=== PATIENT | male | born 1940 | race Caucasian/White ===

== ENCOUNTER 2016-12-26 17:03 | Inpatient (IN) | payer MEDICARE ==
[~2016-12-26] VITALS: Ht 188 cm; Wt 96.7 kg
[~2016-12-26 17:03] MED LIST: ASPI325T32 PO; Acetaminophen PO; CARV6.252 PO; CHONDROITIN ORAL; FLUD0.1T PO; FLUO20CA25 PO; GLIP5TAB26 PO; GLUCOSAMINE ORAL; INSLIS SUBQ; INSU100I13 SUBQ; MIDO5TAB PO; PANT40TA3 PO; POLY17PO6 PO; SIMV40TA5 PO; TAMS0.4C98 PO
[2016-12-26 17:30] VITALS: BP 48/69; PULSE 6; RESP 18; O2SAT 98
--- NOTE | 2016-12-26 18:06 | ED.REPORT ---
HPI-Head Prob / Injury Date of Service Dec 26, 2016 ED Provider: Dr. Jasso Pt is a 76 y/o male w/ a hx of IDDM, HTN, HLD, CVA, CAD, L kidney CA s/p L nephrectomy, presenting to the ED via EMS due to ground level fall which occurred prior to arrival. The patient got out of bed to head to the bathroom and felt like he was going to pass out and fell headfirst into a door and then to the ground. The patient takes aspirin daily and no anticoagulants. He is a poor historian. Nursing Notes Stated Complaint: GLF Chief Complaint: General Complaint Nursing Notes Reviewed: Yes Allergies: Coded Allergies: No Known Allergies (Verified , 12/26/16) Scheduled ([Clucosamine-Chondro]) 2 TAB ORAL DAILY Aspirin (Aspirin) 325 Mg Tablet 325 MG PO DAILY Carvedilol (Carvedilol) 6.25 Mg Tablet 12.5 MG PO BID with food Fludrocortisone Acetate (Fludrocortisone Acetate) 0.1 Mg Tablet 0.1 MG PO DAILY Fluoxetine (Fluoxetine) 20 Mg Capsule 20 MG PO DAILY morning Glipizide ER (Glipizide ER) 5 Mg Tab.er.24 5 MG PO DAILY take with breakfast Insulin Glargine (Lantus U100 Solostar Insulin Pen) 100 Unit/1 Ml Insuln.pen 70 UNIT SUBQ HS Insulin Human Lispro (HumaLOG U100 Insulin Vial) 100 Unit/Ml Unit 0 UNIT SUBQ WMHS Check blood sugars before meals and at bedtime. Use correction factor only before meals. Blood Sugar Lispro Correction: <151, 0 units; 151-175, 1 unit; 176-200, 2 units; 201-225, 3 units; 226-250, 4 units; 251-275, 5 units; 276-300 , 6 units; 301-325, 7 units; 326-350, 8 units; 351-375, 9 units; 376-400, 10 units; >400, 12 units. Midodrine (Midodrine) 5 Mg Tablet 5 MG PO 08,12,[address] (Pantoprazole DR) 40 Mg Tablet.dr 40 MG PO DAILYAC Simvastatin (Simvastatin) 40 Mg Tablet 40 MG PO HS Tamsulosin (Flomax) 0.4 Mg Capsule 0.4 MG PO HS Scheduled PRN ([Acetaminophen]) 325 MG TABLET 650 MG PO Q6H PRN PRN For Mild Pain or Fever Polyethylene Glycol 3350 (Miralax) 17 Gm Powd.pack 17 GM PO DAILY PRN PRN For Constipation General Time Seen by Provider: 18:06 Chief Complaint Contusion Hx Obtained From: Patient, EMS Arrived By: Ambulance Onset Occurred: Just prior to arrival Symptom Duration: Since onset Caused by: Blunt trauma Quality: Painful Severity: Current: Mild Severity: Maximum: Mild Past Medical History Past Medical History Kidney cancer s/p left nephrectomy IDDM CVA Hypertension Hyperlipidemia NH Past Surgical History Left nephrectomy Cataract surgery angioplasty Smoking History Former Smoker Social History Alcohol Use: "Social" Drug Use: Denies drug use Ambulatory Status Independent Review of Systems Review of Systems Note: ROS limited Neurologic: Denies: Focal weakness, Numbness Complete sys rev & neg: except as marked. Respiratory: Denies: Shortness of breath Physical Exam Initial Vital Signs Vital Signs (First) Date Time Temp Pulse Resp B/P Pulse Ox O2 Delivery O2 Flow Rate FiO2 12/26/16 17:30 37.3 6 18 48/69 98 Room Air 12/26/16 23:37 2 Initial VS: Reviewed, Unavailable (multiple typos) Respiratory: Breath sounds normal, Clear to auscultation, No respiratory distress Cardiovascular: Regular rate & rhythm, Heart sounds normal, Intact distal pulses Abdomen / GI: Soft, Non-tender, No distention Extremities: Vascular intact, Neuro intact Psychiatric: Mood/affect normal, Behavior normal, Normal thought content General/Constitutional: Awake, Alert, No acute distress, Cooperative, Not toxic appearing Head / Eyes: Normocephalic, PERRL Abrasions to left face ENT: Airway patent Mouth: Positive: Mucous membranes dry Neck: Atraumatic, Supple, Full range of motion, Non-tender, No midline vertebral tend Neurologic: Oriented X3, Speech NL, No motor deficits, Memory NL Skin: Warm, Dry, Intact Bruises over multiple sites of body in varying stages of healing Interpretation & Diagnostics Lab Results Interpretation Result Diagram: 12/26/16 1910 12/27/16 0040 Test 12/26/16 19:10 12/26/16 20:40 12/27/16 00:40 White Blood Count 6.7th/mm3 (3.8-10.1) Red Blood Count 6.10mil/mm3 (4.40-5.80) Hemoglobin 15.0g/dL (13.8-17.2) Hematocrit 47.9% (41.0-50.0) Mean Corpuscular Volume 78.5fL (81-100) Mean Corpuscular Hemoglobin 24.6pg (27.0-35.0) Mean Corpuscular Hemoglobin Concent 31.3% (32.0-37.0) Red Cell Distribution Width 19.6% (12.3-15.4) Platelet Count 129bil/L (150-400) Neutrophils (%) (Auto) 68.6% (40-74) Lymphocytes (%) (Auto) 20.8% (14-46) Monocytes (%) (Auto) 9.5% (4-12) Eosinophils (%) (Auto) 0.6% (0-5) Basophils (%) (Auto) 0.4% (0-3) Total Bilirubin 0.9mg/dL (0.0-1.2) Aspartate Amino Transf (AST/SGOT) 28U/L (0-50) Alanine Aminotransferase (ALT/SGPT) 20U/L (0-44) Alkaline Phosphatase 129U/L (25-160) Troponin T < 0.010ug/L (0.0-0.011) Total Protein 6.7g/dL (6.4-8.4) Albumin 3.5g/dL (3.4-5.0) Procalcitonin 0.06ng/mL (0.00-0.08) Reticulocyte Count,Calculated 1.0% (0.6-2.6) Sodium Level 141mEq/L (134-144) Potassium Level 4.9mEq/L (3.5-5.2) Chloride Level 104mEq/L (97-108) Carbon Dioxide Level 16mmol/L (18-29) Blood Urea Nitrogen 22mg/dL (8-27) Creatinine 1.45mg/dL (0.76-1.27) Estimat Glomerular Filtration Rate 50mL/min (>59) Glucose Level 206mg/dL (60-99) Calcium Level 8.9mg/dL (8.5-10.1) Magnesium Level 2.0mg/dL (1.6-2.6) Iron Level 36ug/dL (35-150) Total Iron Binding Capacity 282ug/dL (250-450) Percent Iron Saturation 13%sat (15-50) Unsaturated Iron Binding 245.6ug/dL Thyroid Stimulating Hormone (TSH) 6.000uIU/mL (0.450-4.500) Pulse Oximetry Interpretation Pulse Oximetry: Pulse Ox normal, On room air ECG Interpretation ECG Interpretation: Sinus rhythm rate 52 T wave inversion in V5 and V6 No prior available for comparison Time: : Interpreted by: ED physician Normal ECG Interpretation: No acute ischemic changes Rhythm Strip Interpretation : Time: 19:57 Rhythm Strip Interpretation: Interpreted by me, Rate (52), Normal sinus rhythm CBC Interpretation CBC normal BMP / CMP Interpretation BMP/CMP normal except, Glucose elevated, Creatinine normal (improved from baseline) Cardiac / Vascular Interp Troponin normal X-Ray Chest Interpretation Chest Xray Interpretation: IMPRESSION: Subtle bibasilar opacities likely represent atelectasis, however finding is nonspecific and correlation with clinical and laboratory data is recommended to exclude early pneumonia. Dictated by: Gwendolyn Pena MD, PhD on 12/26/2016 at 19:10 Approved by: Gwendolyn Pena MD, PhD on 12/26/2016 at 19:11 View: Portable, 1 view Interpretation / Wet Read by: Interpret - Radiologist CT Head Interpretation IMPRESSION: No acute intracranial disease process. Dictated by: Gwendolyn Pena MD, PhD on 12/26/2016 at 18:13 Approved by: Gwendolyn Pena MD, PhD on 12/26/2016 at 18:16 Study: Head CT no contrast Interpretation / Wet Read by: Interpret - Radiologist Re-Eval/Medical Decision Source of Hx: Old records Re-Evaluation/Progress : Time of Eval: 00:00 Re-Evaluation/Progress Note: Pt rechecked. He has been coughing quite a bit in the ED. Informed pt of need for admission. Pt understands and agrees with plan for admission. All questions addressed. Consultation : Referral / Consult Name: Cindy Beltran MD Consulted With: Hospitalist Call Returned at: 00:01 Customer Acquisition Manager: Will see patient, Agrees with eval, Agrees with plan, Accepts admit Counseled Regarding: Diagnosis, Lab results, Need for admission Discharge & Departure Primary Impression: Syncope Syncope type: unspecified Qualified Code: R55 - Syncope and collapse Additional Impression: Head injury Encounter type: initial encounter Qualified Code: S09.90XA - Unspecified injury of head, initial encounter Disposition: ADMITTED TO HOSPITAL All VS Reviewed: Yes Condition: Stable Referrals: Moody Wade MD (PCP) Scribe Attestation Portions of this note were transcribed by Faisal Ellis. I, Dr. Jasso personally performed the history, physical exam and medical decision-making; I reviewed and confirmed the accuracy of the information in the transcribed note. copies to: Moody Wade MD, Todd P DO Dec 26, 2016 18:06 FAISAL ELLIS Dec 26, 2016 18:15
--- NOTE | 2016-12-26 18:18 | DRSVH ---
PROCEDURE: CT BRAIN WITHOUT CONTRAST ([id number]) INDICATIONS: fall TECHNIQUE: Noncontrast 4.5 mm thick angled axial sections acquired from the foramen magnum to the vertex, with c oronal reformats. COMPARISON: [facility], CT, CT BRAIN WO CON, 01/30/2016, 4:16. FINDINGS: Image quality: Excellent. CSF spaces: Basal cisterns are patent. No extra-axial fluid collections. The ventricles are symmet lobo in size and shape. Brain: No intracranial bleeds or masses. There is cerebral volume loss for age, with resultant vent ricular and sulcal prominence. There are periventricular and deep white matter chronic small vessel ischemic changes. Old bilateral basal ganglia lacunar infarcts are stable compared to prior examinati on. There is intracranial internal carotid artery and vertebral artery atherosclerosis. Skull and face: Calvarium and visualized facial bones appear intact, without suspicious lesions. Sma ll left frontal scalp hematoma is noted. Sinuses: Visualized sinuses and mastoids are clear. IMPRESSION: No acute intracranial disease process. Dictated by: Gwendolyn Pena MD, PhD on 12/26/2016 at 18:13 Approved by: Gwendolyn Pena MD, PhD on 12/26/2016 at 18:16
--- NOTE | 2016-12-26 19:12 | DRSVH ---
PROCEDURE: X-RAY CHEST ONE VIEW, PORTABLE ([id number]) INDICATIONS: syncope TECHNIQUE: One view of the chest was acquired. COMPARISON: None. FINDINGS: Surgical changes and devices: None. Lungs and pleura: No pleural effusions or pneumothorax. Subtle opacities in the lung bases bilateral ly may represent atelectasis versus less likely early pneumonia. Mediastinum: Mediastinal contours appear normal. Heart size is normal. Bones and chest wall: No suspicious bony lesions. Overlying soft tissues appear unremarkable. IMPRESSION: Subtle bibasilar opacities likely represent atelectasis, however finding is nonspecific and correlation with clinical and laboratory data is recommended to exclude early pneumonia. Dictated by: Gwendolyn Pena MD, PhD on 12/26/2016 at 19:10 Approved by: Gwendolyn Pena MD, PhD on 12/26/2016 at 19:11
[2016-12-26 19:29] LABS: Mean Corpuscular Hemoglobin 24.6 pg (27.0-35.0)
[2016-12-26 19:41] LABS: BASOPHILS % (AUTO) 0.4 % (0-3); EOSINOPHILS % (AUTO) 0.6 % (0-5); MONOCYTES % (AUTO) 9.5 % (4-12); Mean Corpuscular Volume 78.5 fL (81-100); NEUTROPHILS % (AUTO) 68.6 % (40-74); Platelet Count 129 bil/L (150-400)
[2016-12-26 21:18] VITALS: BP 133/57; PULSE 64; RESP 20; O2SAT 98
[2016-12-26 21:19] LABS: TROPONIN T < 0.010 ug/L (0.0-0.011)
[2016-12-26] MEDS ORDERED: cefTRIAXone Inj 2,000 MG in Dextrose 5% Minibag Plus 50 ML IV ONE (21:40)
[2016-12-26 23:37] VITALS: BP 141/43; PULSE 53; RESP 16; O2SAT 98
[2016-12-27] VITALS (11 sets, daily range): BP systolic 127–167; BP diastolic 43–87; PULSE 49–65; RESP 16–18; O2SAT 96–100
[2016-12-27] MEDS ORDERED: 0.9% Sodium Chloride 1,000 ML IV SCH (00:18)
[2016-12-27] MEDS ORDERED: Polyethylene Glycol (PEG) 17 Gm Powder PO PRN ×2 (00:20→18:45)
[2016-12-27] MEDS ORDERED: Alum-Mag Hydrox-Simeth 30 mL Suspension PO PRN (00:20)
[2016-12-27] MEDS ORDERED: Ondansetron 2 mg/mL 2 mL Inj IVPUSH PRN (00:20)
[2016-12-27] MEDS: Sodium Chloride LOK Flush 10 mL Syringe IVFLUSH SCH ×3 (00:30→16:30)
[2016-12-27] MEDS ORDERED: Promethazine 25 mg/mL Inj IM PRN (00:30)
[2016-12-27] MEDS ORDERED: Glucose 40% Oral Gel 15 Gm Tube PO PRN (00:50)
[2016-12-27] MEDS ORDERED: Dextrose 10% 250 ML IV PRN (00:55)
[2016-12-27 01:09] LABS: Unsaturated Iron Binding 245.6 ug/dL
[2016-12-27] MEDS: Heparin 5,000 Unit/mL Inj SUBQ SCH ×3 (02:23→16:39)
--- NOTE | 2016-12-27 02:48 | PCM.HPMED ---
Subjective Date of Service Dec 27, 2016 Primary Provider: Admitting Physician: Primary Care Physician: Moody Wade MD Attending Physician: Admit Status: From the Emergency Department, 23-Hour Observation, Remote Telemetry Chief Complaint: Near syncope with ground level fall. . History of Present Illness: Jayson Vuong is a 76-year-old male who is a poor historian with a past medical history significant for orthostatic hypotension, diabetes mellitus type II, non- insulin using, CAD, hyperlipidemia, and left renal carcinoma status post nephrectomy who presented to [facility] emergency department via EMS due near syncope with ground level fall. The patient reports he got out of bed to head to the bathroom and felt like he was going to pass out. He then fell headfirst into a door and then to the ground. The patient denies loss of consciousness. The fall was unwitnessed. He has had this happen several times in the past that was evaluated and thought to be secondary to orthostatic hypotension. The patient has been seen by Dr. Larsen and placed on midodrine for orthostasis. He takes a full dose aspirin daily. The patient reports he recently had an URI that seems to be improving. He endorses mild productive cough of white sputum that is resolving. Due to recent URI he admits to poor PO intake and hydration. He denies headache, vision changes, sore throat, chest pain, palpitations, shortness of breath, abdominal pain, nausea, vomiting, fever , chills, dysuria, constipation or diarrhea. He does endorse dyspnea on exertion. He denies orthopnea or paroxysmal nocturnal dyspnea. He also endorses minor difficulty urinating due to "penis inversion." Vital signs in the ER: Temperature 37.3. Pulse 64. Respiratory rate 20. Blood pressure 133/57. Pulse ox 98% on room air. He received 2 g of IV Rocephin in the ED. PCP is Dr. Wells. Neurology Specialist is Dr. Larsen. . Review of Systems: A comprehensive review of systems was conducted with the patient and found to be negative except as above in the History of Present Illness. . Allergies Coded Allergies: No Known Allergies (Verified , 12/26/16) Home Medications Medications have not been verified as medication reconciliation has not been obtained. Per out patient records:: Aspirin 325 mg daily. Atorvastatin 20 mg daily at bedtime. Fluoxetine 20 mg daily. Glipizide 5 mg twice daily. Metoprolol succinate 12.5 mg daily. Midodrine 5 mg 3 times a day. Potassium chloride 20 mEq daily. Tamsulosin 0.4 mg daily at bedtime. . PMH 1. Renal carcinoma status post left nephrectomy. 2. Diabetes mellitus type II, non-insulin using. 3. CVA. 4. Orthostatic hypotension. 5. Hyperlipidemia. 6. CAD with history of AL status post stent? 7. Depression. 8. GERD. 9. BPH. 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 . Surgical History 1. Left nephrectomy. 2. Bilateral cataract extraction. 3. Coronary angioplasty and possible stent placement? . Family History Noncontributory. . Social History Hx Alcohol Use: Yes (former alcoholic, in remission 32 years) Hx Substance Use: No Hx Tobacco Use: Yes Smoking Status: Former Smoker (2 PPD times x 16 years) Living Arrangement: Alone Additional Information The patient is 1. He has one son who has a history of drug abuse and is in and out of fpc. He lives alone. He is originally from [place], [place]. 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 . Exam Vital Signs Vital Sign - Last Date Time Temp Pulse Resp B/P Pulse Ox O2 Delivery O2 Flow Rate FiO2 12/26/16 23:37 53 16 141/43 98 Nasal Cannula 2 12/26/16 17:30 37.3 Intake and Output 12/26/16 12/26/16 12/27/16 Cumulative From/Thru 15:00 23:00 07:00 12/26/16 21:54 - 12/26/16 21:54 Intake Total 500 ml 500 ml Balance 500 ml 500 ml Intake IV Total 500 ml 500 ml Exam General: Elderly gentleman sitting in bed and in no acute distress, thin, appropriately interactive. HEENT: Normocephalic, atraumatic. External ears without defect. Pupils equal, round, and reactive to light. Left eye contusion and small abrasion on scalp. Anicteric sclerae, moist conjunctivae, and no lid lag. Oropharynx free of erythema and cobble stoning. Dry mucous membranes. Neck: Supple with full range of motion. No jugular venous distension. No bruits. No lymphadenopathy or thyromegaly. Cardiovascular: Distant heart sounds, regular rhythm, bradycardic without murmurs, rubs, or gallops appreciated Pulmonary: Clear to auscultation bilaterally without crackles, wheezes, or rhonchi. Normal respiratory effort with no use of accessory muscles. Abdomen:Soft, nontender, nondistended, bowel sounds present. No hepatosplenomegaly or masses appreciated. Genitourinary: Fragoso/glans of penis is inverted and edematous. Extremities: Moderate bilateral pitting edema to waiste bilaterally. No clubbing or cyanosis. Skin: Normal temperature, turgor, and texture; no rash, ulcers, or subcutaneous nodules appreciated. Neurological: Cranial nerves grossly intact. Normal muscle strength, tone, and bulk. Reflexes, coordination, and sensory function within normal limits. No known gait impairment. Psychiatric: Normal mood and affect. Alert and oriented to person, place, and time. . Lab and Diagnostics Labs Item Value Date Time Mean Corpuscular Volume 78.5 fL L 12/26/161909 Mean Corpuscular Hemoglobin 24.6 pg L 12/26/161909 Mean Corpuscular Hemoglobin Concent 31.3 % L 12/26/161909 Red Cell Distribution Width 19.6 % H 12/26/161909 Neutrophils (%) (Auto) 68.6 % 12/26/161909 Lymphocytes (%) (Auto) 20.8 % 12/26/161909 Monocytes (%) (Auto) 9.5 % 12/26/161909 Eosinophils (%) (Auto) 0.6 % 12/26/161909 Basophils (%) (Auto) 0.4 % 12/26/161909 Item Value Date Time Calcium Level 8.8 mg/dL 12/26/162039 Total Bilirubin 0.9 mg/dL 12/26/162039 Aspartate Amino Transf (AST/SGOT) 28 U/L 12/26/162039 Alanine Aminotransferase (ALT/SGPT) 20 U/L 12/26/162039 Alkaline Phosphatase 129 U/L 12/26/162039 Troponin T < 0.010 ug/L 12/26/162039 Total Protein 6.7 g/dL 12/26/162039 Albumin 3.5 g/dL 12/26/162039 Procalcitonin 0.06 ng/mL 12/26/162039 Result Diagram: 12/26/16190912/26/162039 Microbiology Blood culture 2 pending. . X-Rays, CTs and MRIs CT BRAIN WITHOUT CONTRAST IMPRESSION: No acute intracranial disease process. Dictated by: Gwendolyn Pena MD, PhD on 12/26/2016 at 18:13 X-RAY CHEST ONE VIEW, PORTABLE IMPRESSION: Subtle bibasilar opacities likely represent atelectasis, however finding is nonspecific and correlation with clinical and laboratory data is recommended to exclude early pneumonia. Dictated by: Gwendolyn Pena MD, PhD on 12/26/2016 at 19:10 . 12-lead ECG EKG: Sinus bradycardia, heart rate 52, normal axis, low voltage throughout precordial leads, prolonged [place] interval at 220 ms and QTc at 500 ms, otherwise normal intervals, nonspecific T-wave inversion in lead V5, no pathological Q waves or acute ischemic changes such as ST elevation or depression. . Assessment & Plan Jayson Vuong is a 76-year-old male who is a poor historian with a past medical history significant for orthostatic hypotension, diabetes mellitus type II, non- insulin using, CAD, hyperlipidemia, and left renal carcinoma status post nephrectomy who presented to [facility] emergency department via EMS due near syncope with ground level fall. 1. Acute near syncopal episode with ground level fall, present on admission. Active. - Patient presented after a near syncopal episode with ground level fall. - Differential diagnosis includes:Likely orthostatic hypotension. Less likely cardiac etiology including arrhythmia or valvular heart disease versus vasovagal versus neurogenic. - CT brain without contrast did not reveal any acute intracranial abnormalities , as above. - Ordered echocardiogram, pending. History of stage I diastolic heart failure. - Ordered orthostatic blood pressures, pending. - Ordered urinalysis with culture if indicated, pending. Patient's penis is inverted and quite edematous, however, he is able to void. Consider urology evaluation in the future. - Procalcitonin normal at 0.06. - Troponin normal at <0.010. - Electrolytes within normal limits. - Ordered TSH, pending. - EKG revealed sinus bradycardia with first-degree AV block and significantly prolonged QTC of 500 ms. Avoid QTC prolonging medications. - Continue to monitor for arrhythmias on telemetry. - Ordered physical therapy evaluation. - Started IV fluid hydration with NS at 60 mL/hr due to patient's history of diastolic dysfunction and significant lower extremity edema. - Continue midodrine 5 mg 3 times a day once medication reconciliation was completed. 2. Recent upper respiratory tract infection, present on admission. Resolving. - Patient recently had a minor URI 2 weeks that is resolving. - Received Rocephin 2 g IV in the ED. Will not continue antibiotics as clinically no signs of pneumonia (afebrile, no leukocytosis, pro-calcitonin negative, no rales on pulmonary exam). - Chest x-ray demonstrated subtle bibasilar opacities likely represent atelectasis, as above. Chronic problems: 3. Diabetes mellitus type II, insulin using, present on admission. Stable. - Hemoglobin A1c 6.5% in 01/2016. Repeat hemoglobin A1c pending. - Held oral anti-glycemic. - Ordered heart healthy/carbohydrate consistent diet. - Patient is reportedly off of all insulin as there may have been a component of hypoglycemia contributing to his orthostasis. Ordered low-dose correctional scale insulin for coverage. 4. Hyperlipidemia, present on admission. Stable. - Continue atorvastatin 20 mg daily at bedtime once medication reconciliation is completed. 5. CAD, present on admission. Stable. - Continue aspirin 325 mg daily and beta verena once medication reconciliation is completed. 6. Depression, present on admission. Stable. - Continue fluoxetine 20 mg daily once medication reconciliation is completed. 7. GERD, present on admission. Stable. - Not medically treated. 8. BPH, present on admission. Stable. - Previously on tamsulosin 0.4 mg daily at bedtime but per patient this medication has been stopped likely due to orthostasis. Medication reconciliation has not been completed as it is unobtainable. Day team to reconcile medications. PRN antiemetics: Promethazine and Maalox. PRN bowel regimen: Senna and MiraLAX. PRN analgesics: Tylenol. Patient is admitted under observation status with expected length of stay less than 2 midnights due to severity of presenting symptoms, risk of adverse event, and complexity of treatment plan. . VTE Prophylaxis: Sub-Q Heparin (Unfractionated) Resuscitation Status: CPR: Attempt Resuscitation Attending Statement Patient has been seen and examined by myself with medical staff manager and agree with above history, physical, assessment and plan. Camila Walton DO Dec 27, 2016 00:21 Cindy Beltran MD Dec 27, 2016 06:32
[2016-12-27 03:38] LABS: BASOPHILS % (AUTO) 0.3 % (0-3); EOSINOPHILS % (AUTO) 1.3 % (0-5); MONOCYTES % (AUTO) 8.5 % (4-12); Mean Corpuscular Hemoglobin 25.1 pg (27.0-35.0); Mean Corpuscular Volume 80.8 fL (81-100); NEUTROPHILS % (AUTO) 67.4 % (40-74); Platelet Count 140 bil/L (150-400)
--- NOTE | 2016-12-27 06:16 | NUR ---
Admit Patient arrived to P[facility] room 2002 via bed from ED at approx. 0140. All belongings transferred with patient. Denies pain upon arrival and throughout shift. Severe waist-down edema including scrotum and penis, as well as penile inversion - MD aware. Admit documentation complete, patient unable to provide accurate med rec at this time but stated neighbor "Isable" would be in later today and since she prepares his meds for him, would be able to accurately answer questions. Advance directive unable to be obtained at this time. VSS throughout shift, tele SB 50s. [place] alarm in place, patient instructed to call when he wishes to get up. Denies dizziness/lightheadedness on exertion. Orthostatic vitals obtained, systolic difference of 8 points between lying down and standing up. MD notified. NS at 60mls/hr.
[2016-12-27] MEDS ORDERED: Insulin LISPRO 300 Unit/3 mL Inj SUBQ SCH (08:00)
[2016-12-27] MEDS: Insulin LISPRO 300 Unit/3 mL Inj SUBQ SCH ×4 (08:00→22:00)
--- NOTE | 2016-12-27 10:48 | NUR ---
HOME HEALTH REFERRAL NEW: Gave access and called Aleks at [facility] to let him know new Home Health referral for PT.
--- NOTE | 2016-12-27 10:52 | NUR ---
Social Work: Initial Assessment/Multidisciplinary Rounds D: Per EMR review, pt is a 76 year old male admitted for syncope, head injury, pneumonia. Pt is Medicare with [employer] with no LTC or VA benefits. PCP is Moody Wade MD. JERMAINE is Isabel Conteh, urvashi, . Advanced directives information declined. No RA Score Entered. WAFER CUTTER met with the patient at bedside. Sw role explained, contact information and discharge planning checklist provided. Pt states that he lives in [place], alone. Pt states he uses no DME, continues to drive and has never had home health. The patient states that he has been at [facility] in the past for rehab but did not find it to be helpful. PT is amenable to home health. HH CHOICE LIST PROVIDED- no preference. Pt states he lives in a 1 and a half story home with no steps to enter. During assessment pt is not fully oriented to the current situation or his current surroundings however WAFER CUTTER was able to confirm the information pt provided about his PLOF from his previous visit encounters. See separate mental status note for more information on pt's mentation. WAFER CUTTER informed attending and resident providers of pt's current presentation. Pt discussed in multidisciplinary Rounds. From a mobility standpoint pt is not skillable for rehab and will likely need to discharge home with supportive services. A home health order has been placed; WAFER CUTTER acknowledges order and will make referral. Case Management will continue to have conversations with the patient surrounding safety planning in his home, consideration of private pay caregiving and/or possible assisted living placement. A: Pt who was previously living at home, alone. P: Evolving; At this time, plan is for the patient to discharge home with home health. data collection specialist will make referral based on vendor calendar. WAFER CUTTER will meet with the patient when he is oriented to his current situation to discuss watermaster care planning. NASEEM Verduzco Addendum: 12/27/16 at 1118 by RANDALL YOON SS Amended: Links added.
--- NOTE | 2016-12-27 11:18 | NUR ---
Social Work: Mental Status Patient found sitting upright in his chair eating breakfast. Pt is alert with appropriate eye contact. Pt with a noticeable head laceration in which patient states he does not know how it occurred. 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 The patient was able to accurately provide a date after reading it on his white board. The patient states that the season is "fall" and that he is 70 years old. 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 NASEEM has informed attending and resident providers of this information. NASEEM Verduzco
--- NOTE | 2016-12-27 13:00 | NUR ---
Mentation Pt has episodic confusion. Per SW pt states he is in a motel in [facility], unable to tell PT where he is currently living. Pt stated that year is 1973 and it is Fall and football starts in fall. Pt has been reoriented and now states where he is and correct year. aware. Pt orientation rechecked, he states that he is in [facility], then corrected himself to [place], [place]. States year is 2006. Reoriented to 2016. Pt states that "I just wasn't working properly this morning when I thought I was in [place].
--- NOTE | 2016-12-27 14:04 | NUR ---
Case Management: Medicare BLANCO and Medicare D brochure given with explanation to patient - signed and placed in chart at 1330. Myah Isaac RN
--- NOTE | 2016-12-27 16:24 | NUR ---
Social Work: Continued Discharge Planning D: Attending MD has evaluated the patient. The pt's mentation appears to be improved and he is oriented to his current time, place and situation. He will likely be discharging the patient in the next 1-2 days with home health. F2F has been completed and HH Order has been placed. Attending physician would like for the patient to be seen at the [facility] for follow up care. This appointment has been scheduled for January 03, @ 2:15pm with Dr. Cody. BUILDING MAINTENANCE TECHNICIAN met with the patient at bedside. 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 BUILDING MAINTENANCE TECHNICIAN reviewed options for private pay caregiving, MOW and life life. Pt was provided with information. At this time he does not feel that he needs any of these services but is amenable to home health through [facility]. Referral has been made and F2F provided to Aleks Snell. He is following and is aware that pt will likely discharge tomorrow. BUILDING MAINTENANCE TECHNICIAN reviewed the importance of completing Advanced directives and DPOA paperwork. The patient has declined this information. A: Pt who is I at baseline P: Anticipate the patient to discharge home via POV with [facility] for RN and PT. BUILDING MAINTENANCE TECHNICIAN to continue to follow to assess for unmet discharge needs. Pt to follow up with the [facility]idency Clinic on January 03 @ 2:[address] Cody. NASEEM Verduzco
--- NOTE | 2016-12-27 16:30 | NUR ---
POST HOSPITAL FOLLOW UP: Scheduled post hospital follow up appointment at [facility] December check in at 1415 for 1430 appointment with Updated COMPUTING MACHINE OPERATOR
--- NOTE | 2016-12-27 17:28 | DRSVH ---
[facility] [address] [place] [address] Echocardiogram Report Name: KAROLYN LOMBARDO LStudy Kevin e: 12/27/2016 Height: 74 in Hospital Exam Location: [facility] Weight: 218 lb Gender: Male BSA: 2.3 m2 : 1940 Age: 76 yrs BP: 162/77 mmHg Reason For Study: Syncope Ordering Physician: HOSPITALIST [facility] Performed By: [facility] Staff Referring Physician: Quintin Herrera Interpretation Summary 1) Moderately dilated left ventricle wtih severely reduced function (EF 20- 25%). 2) Severe global hypokinesis present. 3) Moderately dilated right ventricular with moderately reduced function. 4) Mild aortic stenosis present (calculated valve area 1.6cm2). 5) Pulmonary hypertension present, systolic pulmonary pressure estimated at 64 mmHg assuming a right atrial pressure of 15 mm Hg. 6) Compared to the Echo done 02/10/2016, LV function has dropped significantly from 45-50% to 20-25% on today's study. Procedure: A two-dimensional transthoracic echocardiogram with color flow and Doppler was performed. The study quality was technically adequate. Comparison is made with the echocardiogram of 02/10/16. The patient was in normal sinus rhythm during the exam. The patient had occasional PVCs during the exam. Left Ventricle: The left ventricle is moderately dilated. There is normal left ventricular wall thickness. The ejection fraction is estimated to be 20- 25%. There is severe global hypokinesis of the left ventricle. Assessment of diastolic parameters suggests a pseudonormalization pattern, consistent with elevated filling pressures. Right Ventricle: The right ventricle is moderately dilated. Right ventricular systolic function is moderately reduced. Atria: Both atria are severely dilated. The interatrial septum is intact with no evidence for an atrial septal defect. Mitral Valve: There is mild mitral annular calcification. The mitral valve leaflets appear thickened, but open well. There is mild mitral regurgitation. Aortic Valve: The aortic valve is trileaflet. The aortic valve is moderately calcified. Leaflet mobility is minimally reduced. There is mild aortic stenosis. There is mild aortic regurgitation. There has been no significant change since the previous study. Tricuspid Valve: The tricuspid valve is normal in structure and function. There is mild tricuspid regurgitation. The right ventricular systolic pressure is estimated at 64 mmHg assuming a right atrial pressure of 15 mm Hg. Pulmonic Valve: The pulmonic valve is normal in structure and function. There is a trace or physiologic amount of pulmonic regurgitation. Great Vessels: The aortic root is normal size. The ascending aorta is mild- moderately enlarged. The pulmonary artery is normal size. The IVC is dilated (diameter is greater than 2.1 cm) and it collapses less than 50% with a sniff. This suggests a high right atrial pressure of 15 mm Hg. Pericardium/ Pleura There is a small pericardial effusion noted. There is no pleural effusion. MMode/2D Measurements & Calculations LVIDd: 6.6 cm RA long axis LVOT diam LVIDs: 6.4 cm LA A2 area: 27.9 cm FS: 4.0 % LA A4 area: 30.6 cm RA area AoV Opening EPSS: 2.1 cm LA length (vol): 6.1 cm IVSd: 1.0 cm LA vol: 119.2 ml : 32.0 cm Ao root diam LVPWd: 0.63 cm LA vol index RA vol : 128.ml asc Aorta RA Diam: 4.0 cm IVC diam: 2.8 cm : 57.0 mm2 LV sandoval. diameter/BSA LV sys. diameter/BSA RVD1 (basal) RVD2 (mid) (cm/m^2): 2.9 (cm/m^2): 2.8 : 3.8 cm Doppler Measurements & Calculations Ao V2 max: 167.0 cm/secMV E max maximo MV E/A: 1.1 TR max maximo Ao max P.2 mmHg : 67.8 cm/sec Lat Peak E' Maximo : 348.1 cm/sec Ao mean P.0 mmHg MV A max maximo TR max PG LVOT Max Maximo : 59.3 cm/sec E/E' lat: 15.4 : 48.5 mmHg : 79.3 cm/sec MV P1/2t PA V2 max LEA(I,D): 1.6 cm : 57.0 msec : 71.7 cm/sec sev ratio: 0.52 PA mean PG : 0.85 mmHg MV P1/2t max maximo Ao V2 mean LV V1 max PG PA V2 mean : 115.5 cm/sec : 43.3 cm/sec MVA(P1/2t): 3.9 cm2 Ao V2 VTI: 35.2 cmLV V1 VTI PA pr(Accel) LEA(V,D): 1.5 cm2 : 18.4 cm : 48.2 mmHg LEA indexed to BSA (cm^2/m^2): 0.72 Reading Physician:05:24 PM
--- NOTE | 2016-12-27 17:58 | DRSVH ---
PROCEDURE: CT BRAIN WITHOUT CONTRAST ([id number]) INDICATIONS: Altered level of conciousness TECHNIQUE: Noncontrast 4.5 mm thick angled axial sections acquired from the foramen magnum to the vertex, with c oronal reformats. COMPARISON: Located Within [facility], CT, CT BRAIN WO CON, 12/26/2016, 17:53. FINDINGS: Image quality: Excellent. CSF spaces: Basal cisterns are patent. No extra-axial fluid collections. The ventricles are symmet lobo in size and shape. Brain: No intracranial bleeds or masses. There is cerebral volume loss for age, with resultant vent ricular and sulcal prominence. There are periventricular and deep white matter chronic small vessel ischemic changes. There is intracranial internal carotid artery atherosclerosis. The previously pre sent bilateral lacunar infarctions, chronic in appearance, are present within the العلي radiata the chest are, the largest of which is lateral to the middle third of the right lateral ventricle, and no acute disease is found. Skull and face: Calvarium and visualized facial bones appear intact, without suspicious lesions. Sinuses: Visualized sinuses and mastoids are clear. IMPRESSION: Prior bilateral small lacunar infarctions, no acute disease. Moderate brain parenchymal atrophy associated with microvascular atherosclerotic change in the deep white matter of each hemisph ere. Dictated by: Hermann Galvez M.D. on 12/27/2016 at 17:55 Approved by: Hermann Galvez M.D. on 12/27/2016 at 17:56
--- NOTE | 2016-12-27 18:22 | PCM.PNMED ---
Subjective Date of Service Dec 27, 2016 Subjective Subjective: Patient is alert, lying in bed on exam and states that he is feeling significantly better than previously. He does admit some uneasiness in his feet. Events Overnight: No acute events overnight. ROS: Denies fever/chills, nausea/vomiting, headache, weakness, abdominal pain, chest pain, shortness of breath, increased swelling in hands or feet. Exam Vital Signs Vital Sign - Last Date Time Temp Pulse Resp B/P Pulse Ox O2 Delivery O2 Flow Rate FiO2 12/27/16 16:44 Supplement Oxygen 12/27/16 12:40 36.0 52 18 142/48 100 12/27/16 02:48 2.00 Intake and Output 12/26/16 12/26/16 12/27/16 Cumulative From/Thru 15:00 23:00 07:00 12/26/16 21:54 - 12/27/16 06:56 Intake Total 500 ml 790 ml 1290 ml Balance 500 ml 790 ml 1290 ml Intake Oral 100 ml 100 ml IV Total 500 ml 690 ml 1190 ml # Voids 2 2 Exam General: No acute distress, well-developed, well-nourished Head: Normocephalic, minor erythema of the left orbital area. 2 cm laceration over the left eyebrow. 2 cm lesion over the left episcopal. External ears without defect. Eyes: Pupils equal, round, and reactive to light and accommodation. Anicteric sclerae, moist conjunctivae. Neck: Normal range of motion, no lymphadenopathy noted Cardiovascular: Regular rate and rhythm with no murmurs, rubs, or gallops appreciated Pulmonary: Clear to auscultation bilaterally with no crackles, wheezes, or rhonchi. Normal respiratory effort with no use of accessory muscles. Abdomen: Bowel tones present. Soft, nontender, nondistended. Extremities: No clubbing, cyanosis, edema Skin: Normal temperature, turgor, and texture; no rash, ulcers, or subcutaneous nodules appreciated. Neurological: Cranial nerves grossly intact. Reflexes, coordination, and sensory function within normal limits. Normal muscle strength, tone, and bulk. Psychiatric: Normal mood and affect. Alert and oriented to person, place, and time IVs and Medications IV Fluids 1050 mL normal saline delivered with IV medications. Medications Reviewed: Medications were reviewed in detail Lab and Diagnostics Result Diagram: 12/27/16 0303 12/27/16 0040 Microbiology Blood culture 2 pending. . X-Rays, CTs and MRIs CT BRAIN WITHOUT CONTRAST IMPRESSION: No acute intracranial disease process. Dictated by: Gwendolyn Pena MD, PhD on 12/26/2016 at 18:13 X-RAY CHEST ONE VIEW, PORTABLE IMPRESSION: Subtle bibasilar opacities likely represent atelectasis, however finding is nonspecific and correlation with clinical and laboratory data is recommended to exclude early pneumonia. Dictated by: Gwendolyn Pena MD, PhD on 12/26/2016 at 19:10 . 12-lead ECG EKG: Sinus bradycardia, heart rate 52, normal axis, low voltage throughout precordial leads, prolonged DE interval at 220 ms and QTc at 500 ms, otherwise normal intervals, nonspecific T-wave inversion in lead V5, no pathological Q waves or acute ischemic changes such as ST elevation or depression. . Cardiac Echo Impressions Echocardiogram Interpretation Summary 1) Moderately dilated left ventricle wtih severely reduced function (EF 20-25%). 2) Severe global hypokinesis present. 3) Moderately dilated right ventricular with moderately reduced function. 4) Mild aortic stenosis present (calculated valve area 1.6cm2). 5) Pulmonary hypertension present, systolic pulmonary pressure estimated at 64 mmHg assuming a right atrial pressure of 15 mm Hg. 6) Compared to the Echo done 02/10/2016, LV function has dropped significantly from 45-50% to 20-25% on today's study. Reading Physician:05:24 PM Assessment & Plan Jayson Vuong is a 76-year-old male who is a poor historian with a past medical history significant for orthostatic hypotension, diabetes mellitus type II, non- insulin using, CAD, hyperlipidemia, and left renal carcinoma status post nephrectomy who presented to [facility] emergency department via EMS due near syncope with ground level fall. Acute near syncopal episode with ground level fall, present on admission. Active. - Patient presented after a near syncopal episode with ground level fall. History of stage I diastolic heart failure. - Differential diagnosis includes: Orthostatic hypotension. Possible cardiac etiology including arrhythmia or valvular heart disease versus vasovagal versus neurogenic. - CT brain negative, as above. - Ordered echocardiogram shows EF of 20-25% as above. - Cardiology consulted - Procalcitonin normal - Troponin normal - Electrolytes within normal limits. - Minor elevation in TSH - EKG revealed sinus bradycardia with first-degree AV block and significantly prolonged QTC of 500 ms. Avoid QTC prolonging medications. - Continue telemetry. - Physical therapy evaluation. - DC'd IV fluid hydration Penile inversion, present on admission, stable - Patient is able to urinate - May require future urology consult Acute on chronic systolic congestive heart failure, present on admission, active - Echocardiogram completed today shows ejection fraction of 20-25% with severe global hypokinesis other findings as above - Echocardiogram findings represent a significant change from echo completed on 02/10/2016 previous EF 45-50% - EKG revealed sinus bradycardia with first-degree AV block and significantly prolonged QTC of 500 ms. Avoid QTC prolonging medicatio - Cardiology consulted -Hold midodrine 5 mg 3 times a day, pending recommendations of cardiology Recent upper respiratory tract infection, present on admission. Resolving. - Patient recently had a minor URI 2 weeks that is resolving. - Received Rocephin 2 g IV in the ED. Will not continue antibiotics as clinically no signs of pneumonia (afebrile, no leukocytosis, pro-calcitonin negative, no rales on pulmonary exam). - Chest x-ray demonstrated subtle bibasilar opacities likely represent atelectasis, as above. Chronic problems: Diabetes mellitus type II, insulin using, present on admission. Stable. - Hemoglobin A1c 6.5% in 01/2016. Repeat hemoglobin A1c pending. - Held oral anti-glycemic. - Heart healthy/carbohydrate consistent diet. - Patient is reportedly off of all insulin as there may have been a component of hypoglycemia contributing to his orthostasis. - Low-dose correctional scale insulin for coverage. Hyperlipidemia, present on admission. Stable. - Continue atorvastatin 20 mg daily at bedtime CAD, present on admission. Stable. - Continue aspirin 325 mg daily Depression, present on admission. Stable. - Continue fluoxetine 20 mg daily GERD, present on admission. Stable. - Not medically treated. BPH, present on admission. Stable. - Previously on tamsulosin 0.4 mg daily at bedtime but per patient this medication has been stopped likely due to orthostasis. PRN antiemetics: Promethazine and Maalox. PRN bowel regimen: Senna and MiraLAX. PRN analgesics: Tylenol. Disposition: Cardiology consulted for CHF evaluation, I expect the patient will require 1-2 more nights of inpatient management. . VTE Prophylaxis: Sub-Q Heparin (Unfractionated) Resuscitation Status: CPR: Attempt Resuscitation Attending Statement The patient was seen and examined together with Dr. Deleon on 12/27/2016 and I agree with the history, exam and plan as outlined in the note above. . Marvin Deleon DO Dec 27, 2016 18:22 Dave Christianson MD Dec 29, 2016 17:28
[2016-12-27 23:57] LABS: APPEARANCE,URINE CLEAR (CLEAR,HAZY); COLOR,URINE DARK YELLOW (YELLOW); OCCULT BLOOD,URINE NEGATIVE (NEGATIVE); PH,URINE 5.5 (5.0-8.0); UROBILINOGEN,URINE NORMAL (NORMAL)
[2016-12-28] VITALS (9 sets, daily range): BP systolic 152–168; BP diastolic 75–87; PULSE 53–74; RESP 16–20; O2SAT 97–100
[2016-12-28] MEDS: Sodium Chloride LOK Flush 10 mL Syringe IVFLUSH SCH ×3 (00:51→15:36)
[2016-12-28] MEDS: Heparin 5,000 Unit/mL Inj SUBQ SCH ×3 (00:51→18:06)
[2016-12-28] MEDS: Nystatin 100,000 Unit/Gm 15 Gm Powder TOPICAL PRN (00:51)
[2016-12-28 02:34] LABS: Mean Corpuscular Hemoglobin 24.7 pg (27.0-35.0); Mean Corpuscular Volume 80.1 fL (81-100)
--- NOTE | 2016-12-28 05:02 | NUR ---
Skin/Telemetry Pt oriented to self but forgetful of place and date. He needs reorientation at times. Pt at times would be able to correct himself. Telemetry SB in 50s. No c/o pain. Mepilex to buttock applied. Nystatin powder to perineum area. Pt able to turn himself in bed but needs reminder to turn/move at times. Bed alarm on.
[2016-12-28] MEDS: Insulin LISPRO 300 Unit/3 mL Inj SUBQ SCH ×4 (08:34→22:00)
--- NOTE | 2016-12-28 10:42 | CONS ---
[address] [address] CONSULTATION REPORT PATIENT: KAROLYN LOMBARDO : 1940 MR#: [id number] ADMIT: 12/27/2016 JOB ID: [id number] DATE OF SERVICE: 12/28/2016 CARDIOLOGY CONSULTATION: Dr. Marvin Deleon has asked that I consult on this 76-year-old male admitted with possible presyncope and newly discovered worsening LV systolic dysfunction. DATE OF SERVICE: HISTORY: The patient has a long history of ischemic heart disease with reported infarction in the mid that was treated with angioplasty. More recently, he had a cardiac catheterization at [facility] in [place] in 2003 revealing a chronically occluded obtuse marginal and right coronary artery, both supplied by collaterals as well as a small completely occluded diagonal but a widely patent LAD with an ejection fraction around 45%. He was treated medically and apparently has done relatively well until early 2015 when he developed dyspnea and evidence of CHF and was admitted to [facility] in September with mild acute on chronic renal insufficiency with a creatinine of 1.8. He was diuresed and had an echocardiogram that showed an ejection fraction of 45% with global hypokinesis with right ventricular enlargement but normal systolic function with a pulmonary artery pressure of 41 mmHg. There was mild aortic stenosis with mild mitral regurgitation. He was discharged on furosemide and carvedilol with good symptomatic relief and subsequently established with Dr. Larsen who started him on low-dose ROSALIO inhibitor. He underwent an exercise sestamibi myocardial perfusion imaging study in December 2015 that was limited by dyspnea and a fairly flat heart rate and blood pressure response and was, therefore, changed to a pharmacologic stress test. His stress ejection fraction is estimated around 37% with a resting ejection fraction around 30% with global hypokinesis but worse in the inferolateral wall corresponding to a severe fixed inferior and inferolateral perfusion defect, consistent with previous infarction but no obvious ischemia. He was subsequently admitted in January and February 2016 with postural syncope and presyncope and was felt to be volume depleted as well as orthostatic hypotension from tamsulosin that he takes because of his bladder outlet obstruction. An echocardiogram at that time showed an ejection fraction of 45%-50% with inferolateral hypokinesis. He was treated with IV fluids and his lisinopril, carvedilol and diuretics were all stopped and ultimately he was started on Florinef because of persistence of postural hypotension. He saw Dr. Larsen in February 2016 feeling much better and was felt to have some degree of autonomic dysfunction. He was admitted at [facility] in May 2016 with reported pneumonia and was found to have heart rates in the 40s. He had been restarted on his carvedilol which was again stopped and he was discharged on amlodipine, furosemide 20 mg daily and losartan 25 mg daily with a creatinine of 1.8 with a BUN of 26 and a BNP reported greater than 5000. At his last followup with Dr. Larsen in August 2016, his heart rate was 62 with a BP of 122/60, and he was started on metoprolol succinate 12.5 mg daily and was generally feeling well. He reports doing well following this, although over the last several weeks has noted increased pedal edema, but denies any significant dyspnea. He reports being on the same medications although did not renew some of his cardiac medications although is uncertain which ones. On the day of admission, he had arisen for the morning and was walking upstairs with some difficulty because of his pedal edema and laid down. He subsequently got up with some difficulty because of unsteadiness and weakness perhaps with some mild lightheadedness but predominantly lost his balance and his feet became tied up in the sheets and he fell forward hitting his head on the door. He denies any sense of loss of consciousness or palpitations. He denies any sense of chest discomfort with this or any other time recently. He has had no dyspnea. He denies any recent weight change although reports a 50 pound weight loss over the past year. He was taken to the emergency department where his left eye laceration was stitched. His BUN was 12 with a creatinine of 1.4 but a bicarbonate of 16. His troponin was normal and his TSH was mildly elevated at 6.0. His heart rate is 64 with a BP of 137/57. He was treated with IV fluids and had all of his cardiac medications stopped. His echocardiogram from yesterday showed an ejection fraction now about 20%-25% with fairly severe global hypokinesis although continuing to be worse in the inferolateral segments which are akinetic. There is moderate right ventricular enlargement with moderate hypokinesis now with a pulmonary artery pressure of around 64 mmHg and a CVP of 15 mm mmHg. There is mild aortic stenosis with mild aortic regurgitation but no other significant valvular abnormalities. I have personally reviewed these images and there has clearly been a decline in his ejection fraction since his previous echocardiogram. CARDIAC RISK FACTORS: Notable for hyperlipidemia which has been fairly well controlled. He had a history of hypertension and diabetes with an A1c on admission of 8.7. There is a remote history of tobacco use, smoking two packs per day for 16 years but none for the past 40 years. FAMILY HISTORY: Is notable for a father who had an AK in his 50s. PAST MEDICAL HISTORY: Notable for renal cell carcinoma requiring left nephrectomy in 2003. He has chronic renal insufficiency with anemia and thrombocytopenia. He reports a history of a stroke in the 80s but without any residual defect. He has bladder outflow obstruction and a history of GERD and depression. CURRENT MEDICATIONS: 1. Prozac 20 mg daily. 2. Aspirin 325 mg daily. 3. Insulin. 4. Atorvastatin 20 mg daily. 5. His losartan, carvedilol, metoprolol and midodrine have all been stopped as well as his tamsulosin. ALLERGIES: No known drug allergies. FAMILY HISTORY: As above. 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 He has a history of heavy alcohol use but none for the past 32 years. REVIEW OF SYSTEMS: A complete review is performed and is notable for the absence of any recent fevers or chills or vision change. Denies any ENT problems. Denies any dyspnea, cough or hemoptysis. No history of any peptic ulcer disease or evidence of GI blood loss. Denies any genitourinary complaints or hematuria. Denies any musculoskeletal complaints or recent [employer] issues. Denies any history of thyroid or bleeding disorder or unusual anxiety or depression. PHYSICAL EXAMINATION: Pleasant, mildly overweight, elderly male, who is a somewhat poor historian. HR 72. BP 168/78. O2 saturation 98% on room air. He has had a positive fluid balance since admission of around 3.2 L and his weight is up 1.3 kg to 100.1 kg today. Skin: Warm and dry. HEENT: EOMI without arcus. He has a laceration with ecchymoses and edema around the left eyebrow. Fair dentition. Lungs: Clear bilaterally to auscultation and percussion without any appreciable rales or wheeze. CV: Nonpalpable PMI with a regular rhythm with a 2/6 holosystolic murmur at the left lower sternal border without any appreciable diastolic murmur. Normal S1 and S2 without any appreciable gallops. JVP is 8-10 cm. Carotid and femoral pulses are all 2+ with a normal upstroke and no bruit. Dorsalis pedis and posterior tibial pulses are nonpalpable through his edema. Abdomen: Mildly obese but nondistended and nontender without any palpable masses or hepatosplenomegaly. Normal bowel tones are present without bruits. : Scrotal edema with some inguinal fungal infection. Extremities: Warm except at the feet which are slightly cool with 2-3+ bilateral pitting edema up beyond the knee. There is no cyanosis. Neuro: Moves all four extremities. He has mildly slurred speech. Psych: Awake, alert and appropriate. LABORATORY: White count this morning is 6.4 with a hematocrit of 44%. Platelet count is 144,000. MCV is low at 80.1. BUN this morning is 26 with a creatinine of 1.4 with a glucose of 166. LFTs are normal. Troponin was normal. TSH was elevated at 6.0 with a free T4 of 1.13. Albumin is low at 3.1. His head CT showed no acute processes, but probable prior bilateral small lacunar infarctions with some parenchymal atrophy and some microvascular changes of ischemia in the white matter. Chest x-ray: Clear lung wall without effusions although with some slight opacity at the bases. ECG: Shows sinus rhythm at 52 BPM with a mild first-degree AV block with a MT interval of 220 msec. There is low extremity voltage with some nonspecific ST-segment abnormalities. IMPRESSION: 1. Possible near syncopal episode with a history of postural hypotension. The patient feels that his fall was more related to imbalance, exacerbated by his recent pedal edema rather than a near syncopal event. Yet, he is at high risk for arrhythmias with his evidence of conduction disease and severe LV systolic dysfunction although has not demonstrated any concerning arrhythmias on telemetry here although has had occasional PVCs up to five beat runs but with fairly slow and irregular R-R intervals. I suspect that he may have some degree of autonomic dysfunction but he is clearly not volume depleted at this point, and in fact, quite clearly has some volume excess. Given his hypertension, I would reinstitute low-dose diuretic therapy with close observation of his blood pressure and renal function. Of greater concern is his progressive decline in his LV systolic dysfunction, now severe. I am concerned that this could reflect progressive ischemic disease. Given the known circumflex, RCA disease, myocardial perfusion imaging can be inaccurate in this setting, and given this, I have recommended proceeding with cardiac catheterization to redefine his coronary anatomy and to see if there is any high-grade stenosis. If so, revascularization may help improve LV systolic function. If not, then medical therapy would be appropriate although is significantly limited by his intermittent hypotension and bradycardia. Given this, I think an implantable defibrillator may be appropriate to allow reinstitution of beta blockade. I have discussed cardiac catheterization with him and he is agreeable to proceed and I will talk with Dr. Zaragoza about attempting to arrange this for later today. 2. Severe left ventricular systolic dysfunction. This is likely reflective of underlying ischemic cardiomyopathy. Other considerations would be for hypothyroidism as a cause of his blood pressure lability, although his TSH does not appear to be significantly elevated to account for this. Yet, further investigation into more profound hypothyroidism should be pursued but will be deferred to the hospitalist. In the meantime, I would like to see further afterload reduction given his poor LV systolic function. Reinstituting low-dose ARB can be considered but I would defer until after his cardiac catheterization given his history of renal insufficiency. 3. Chronic renal insufficiency status post left nephrectomy. His renal function appears to be at baseline. 4. History of renal cell carcinoma. No evidence of recurrence. 5. Microcytic anemia and thrombocytopenia. Evaluation per the hospitalist. 6. Borderline hypothyroidism with an elevated TSH. As above, more in-depth evaluation to exclude underlying thyroid issues may be appropriate but will be deferred to the hospitalist. 7. Diabetes with fairly poor blood sugar control. Per the hospitalist. 8. Hypertension. As above. 9. Hyperlipidemia. I would continue with atorvastatin. RECOMMENDATIONS: 1. Reinstitute low-dose furosemide. 2. Pursue cardiac catheterization to evaluate for underlying progressive ischemic heart disease. 3. Further recommendations dependent upon those results. I spent 1 hour and 55 minutes reviewing the patient's medical record, interviewing the patient, reviewing his images and answering his questions.
[2016-12-28] MEDS ORDERED: Furosemide 10 mg/mL 2 mL Inj IVPUSH ONE (14:25)
--- NOTE | 2016-12-28 14:29 | PCM.PNMED ---
Subjective Date of Service Dec 28, 2016 Subjective Subjective: Patient says he is feeling well, he continues to be slightly confused about his whereabouts, going in and out of understanding of where he is currently at and what year it is. He appears to understand his medical situation and is in agreement with the suggestions made by the medicine team as well as cardiology. Events Overnight: No acute events overnight. ROS: Increased swelling in the legs. Denies fever/chills, nausea/vomiting, headache, weakness, abdominal pain, chest pain, shortness of breath. Exam Vital Signs Vital Sign - Last Date Time Temp Pulse Resp B/P Pulse Ox O2 Delivery O2 Flow Rate FiO2 12/28/16 12:08 35.5 54 16 161/86 99 Room Air 12/27/16 02:48 2.00 Intake and Output 12/27/16 12/27/16 12/28/16 Cumulative From/Thru 15:00 23:00 07:00 12/26/16 21:54 - 12/28/16 06:46 Intake Total 2179 ml 350 ml 3819 ml Output Total 250 ml 340 ml 590 ml Balance 1929 ml 10 ml 3229 ml Intake Oral 1450 ml 350 ml 1900 ml IV Total 729 ml 1919 ml Output Urine Total 250 ml 340 ml 590 ml # Voids 1 3 Exam General: No acute distress, well-developed, well-nourished Head: Normocephalic, minor erythema of the left orbital area. 2 cm laceration over the left eyebrow. 2 cm lesion over the left hindu. External ears without defect. Eyes: Pupils equal, round, and reactive to light and accommodation. Anicteric sclerae, moist conjunctivae. Neck: Normal range of motion, no lymphadenopathy noted Cardiovascular: Regular rate and rhythm with no murmurs, rubs, or gallops appreciated Pulmonary: Clear to auscultation bilaterally with no crackles, wheezes, or rhonchi. Normal respiratory effort with no use of accessory muscles. Abdomen: Bowel tones present. Soft, nontender, nondistended. Extremities: No clubbing, cyanosis, edema Skin: Normal temperature, turgor, and texture; no rash, ulcers, or subcutaneous nodules appreciated. Neurological: Cranial nerves grossly intact. Reflexes, coordination, and sensory function within normal limits. Normal muscle strength, tone, and bulk. Psychiatric: Normal mood and affect. Alert and oriented to person, place, and time IVs and Medications Medications Reviewed: Medications were reviewed in detail Lab and Diagnostics Result Diagram: 12/28/1622412/28/16224 Microbiology Blood culture 2 pending. . X-Rays, CTs and MRIs CT BRAIN WITHOUT CONTRAST IMPRESSION: No acute intracranial disease process. Dictated by: Gwendolyn Pena MD, PhD on 12/26/2016 at 18:13 X-RAY CHEST ONE VIEW, PORTABLE IMPRESSION: Subtle bibasilar opacities likely represent atelectasis, however finding is nonspecific and correlation with clinical and laboratory data is recommended to exclude early pneumonia. Dictated by: Gwendolyn Pena MD, PhD on 12/26/2016 at 19:10 . 12-lead ECG EKG: Sinus bradycardia, heart rate 52, normal axis, low voltage throughout precordial leads, prolonged [place] interval at 220 ms and QTc at 500 ms, otherwise normal intervals, nonspecific T-wave inversion in lead V5, no pathological Q waves or acute ischemic changes such as ST elevation or depression. . Cardiac Echo Impressions Echocardiogram Interpretation Summary 1) Moderately dilated left ventricle wtih severely reduced function (EF 20-25%). 2) Severe global hypokinesis present. 3) Moderately dilated right ventricular with moderately reduced function. 4) Mild aortic stenosis present (calculated valve area 1.6cm2). 5) Pulmonary hypertension present, systolic pulmonary pressure estimated at 64 mmHg assuming a right atrial pressure of 15 mm Hg. 6) Compared to the Echo done 02/10/2016, LV function has dropped significantly from 45-50% to 20-25% on today's study. Reading Physician:05:24 PM Assessment & Plan Jayson Vuong is a 76-year-old male who is a poor historian with a past medical history significant for orthostatic hypotension, diabetes mellitus type II, non- insulin using, CAD, hyperlipidemia, and left renal carcinoma status post nephrectomy who presented to [facility] emergency department via EMS due near syncope with ground level fall. Acute near syncopal episode with ground level fall, present on admission. Active. - Patient presented after a near syncopal episode with ground level fall. History of stage I diastolic heart failure. - Differential diagnosis includes: Orthostatic hypotension. Possible cardiac etiology including arrhythmia or valvular heart disease versus vasovagal versus neurogenic. - CT brain negative, as above. - Ordered echocardiogram shows EF of 20-25% as above, - Cardiology consulted, planning cath 12/29 nothing by mouth after midnight - Procalcitonin normal - Troponin normal - EKG revealed sinus bradycardia with first-degree AV block and significantly prolonged QTC of 500 ms. Avoid QTC prolonging medications. - Continue telemetry. - Continue Physical therapy Acute on chronic systolic congestive heart failure, present on admission, active - Echocardiogram completed today shows ejection fraction of 20-25% with severe global hypokinesis other findings as above - Echocardiogram findings represent a significant change from echo completed on 02/10/2016 previous EF 45-50% - EKG revealed sinus bradycardia with first-degree AV block and significantly prolonged QTC of 500 ms. Avoid QTC prolonging medications - Cardiology consulted, planning cath 12/29 nothing by mouth after midnight - Hold midodrine 5 mg 3 times a day, pending recommendations of cardiology - 20mg IV Lasix given once per recommendations of cardiology Recent upper respiratory tract infection, present on admission. Resolving. - Patient recently had a minor URI 2 weeks that is resolving. - Chest x-ray demonstrated subtle bibasilar opacities likely represent atelectasis, as above. Penile inversion, present on admission, stable - Patient is able to urinate - May require future urology consult as an outpatient Chronic problems: Diabetes mellitus type II, insulin using, present on admission. Stable. - Hemoglobin A1c 6.5% in 01/2016. Repeat hemoglobin A1c pending. - Held oral anti-glycemic. - Heart healthy/carbohydrate consistent diet. - Patient is reportedly off of all insulin as there may have been a component of hypoglycemia contributing to his orthostasis. - Low-dose correctional scale insulin for coverage. Hyperlipidemia, present on admission. Stable. - Continue atorvastatin 20 mg daily at bedtime CAD, present on admission. Stable. - Continue aspirin 325 mg daily Depression, present on admission. Stable. - Continue fluoxetine 20 mg daily GERD, present on admission. Stable. - Not medically treated. BPH, present on admission. Stable. - Previously on tamsulosin 0.4 mg daily at bedtime but per patient this medication has been stopped likely due to orthostasis. PRN antiemetics: Promethazine and Maalox. PRN bowel regimen: Senna and MiraLAX. PRN analgesics: Tylenol. Disposition: Cardiology consulted for CHF evaluation, I expect the patient will require 1-2 more nights of inpatient management. . VTE Prophylaxis: Sub-Q Heparin (Unfractionated) Resuscitation Status: CPR: Attempt Resuscitation Attending Statement The patient was seen and examined together with Dr. Deleon on 12/28/2016 and I agree with the history, exam and plan as outlined in the note above. . Marvin Deleon DO Dec 28, 2016 13:17 Dave Christianson MD Dec 29, 2016 17:29
--- NOTE | 2016-12-28 15:56 | NUR ---
Inpatient status effective today, JUAN DAVID signed.
--- NOTE | 2016-12-28 18:32 | NUR ---
Mentation/Skin/Activity Pt mentation improved today. Pt is still at times forgetful, but he has been consistently Alert and oriented for entire shift with no episodic confusion. Pt states groin area still very tender. Area was cleaned and nystatin powder administered. Skin appeared red with some maceration. Pt states that swelling/edema is reduced today. Pt administered IV lasix for edema today. Pt up to chair for meals this morning and ambulated in hallway with PT. Pt tolerated activity well and maintained O2 sats of 98%.
[2016-12-29] VITALS (23 sets, daily range): BP systolic 130–166; BP diastolic 70–93; PULSE 52–79; RESP 11–24; O2SAT 93–100
[2016-12-29] MEDS: Heparin 5,000 Unit/mL Inj SUBQ SCH ×2 (00:34→08:09)
[2016-12-29] MEDS: Sodium Chloride LOK Flush 10 mL Syringe IVFLUSH SCH ×3 (00:34→16:22)
[2016-12-29 02:47] LABS: Mean Corpuscular Volume 79.6 fL (81-100)
--- NOTE | 2016-12-29 06:30 | NUR ---
NPO NPO @ midnight for heart cath. Cooperative with NPO status. Currently resting without any complaints.
[2016-12-29] MEDS: Insulin LISPRO 300 Unit/3 mL Inj SUBQ SCH ×4 (07:25→20:30)
[2016-12-29] MEDS ORDERED: Heparin 10,000 Unit/1,000 mL NS Premix IV ONE (08:40)
[2016-12-29] MEDS ORDERED: Heparin 1,000 Units/500 mL NS Premix IV ONE ×2 (08:40→10:04)
[2016-12-29] MEDS ORDERED: Heparin 1,000 Unit/mL 10 mL Inj ONE (08:40)
[2016-12-29] MEDS ORDERED: 0.9% Sodium Chloride 1,000 ML ONE (08:41)
[2016-12-29] MEDS ORDERED: fentaNYL-PF 50 mCg/mL 2 mL Inj ONE (09:23)
--- NOTE | 2016-12-29 11:42 | NUR ---
Right groin FA site without s/s bleeding or hematoma. Distal SP pulse 2+. Denies chest pain or SOB. Post procedure EKG done. VSS, room air saturations 10%. Appears to have some apnea, not obstructive, with periods of apnea lasting 30-40 seconds. No desaturations. Pt is alert, oriented and appropriate while awake. Continue to monitor, bedrest continues until 1630.
--- NOTE | 2016-12-29 11:50 | CS94 ---
[address] [address] DIAGNOSTIC CARDIAC CATHETERIZATION PATIENT: KAROLYN LOMBARDO : 1940 MR#: [id number] ADMIT: 12/27/2016 JOB ID: [id number] PROCEDURE NOTE--CARDIAC CATHETERIZATION LABORATORY: SERVICE DATE: Saturday, December 29, 2016. CARDIAC NATURAL GAS INSPECTOR: Satish Zaragoza M.D. PROCEDURES: 1. Coronary angiogram. 2. Left heart catheterization (LHC)--pressure measurement. CLINICAL DETAILS: This 76-year-old man with known coronary disease has been stable clinically since his last catheterization in [place] in 2003 is admitted to the hospital with heart failure. Coronary angiogram is undertaken in order to rule out revascularizable coronary lesions that could be responsible for a recent significant decline in his ejection fraction in association with his new onset heart failure. Ejection fraction had been about 40%. Currently echo shows ejection fraction only 20%-25%; and estimated PASP 64 mmHg. He has diffuse hypokinesia of the LV; as well as inferolateral akinesis consistent with his known chronically occluded RCA. He also has known chronically occluded OM. Also note chronic renal insufficiency with current creatinine 1.4. PROCEDURAL DETAILS: I met him in his room on the PCU unit prior to the catheterization. We discussed the procedure including possible risks and complications. We discussed bleeding, infection and blood clot; as well as injury to nerve, artery, vein or kidney; and also arrhythmia, drug reaction; or others. We discussed treatment as needed including surgery, pacemaker, transfusion. We discussed more serious complications that are possible including stroke, heart attack, cardiac arrest, and emergency surgery including transfer for coronary bypass surgery. After discussion and questions, he signed informed consent to proceed. He was brought to the catheterization laboratory NPO where he was prepped sterilely and draped. CORONARY ANGIOGRAM: Arterial access was obtained without difficulty in the right common femoral artery using fluoroscopic localization over the femoral head as well as lidocaine local anesthesia; and modified Seldinger technique to insert a 10 cm, 6-Malawian side-arm sheath. Catheters are advanced and exchanged over a long J tipped 0.035 inch guidewire. The left coronary artery was engaged initially with a 6-Malawian JL-4 diagnostic catheter; then changed to a 6-Malawian JL-5 bend catheter for better engagement of the LMCA. The right coronary artery was engaged with a 6-Malawian JR-4 catheter. LHC: A 6-Malawian pigtail catheter was advanced across the aortic valve into the LV to measure LV pressures including LVED and pullback. No LV angiogram done. PROCEDURE WITHOUT DIFFICULTY: The patient tolerated procedure well. No complications. A side-arm sheath angiogram shows no arterial obstruction in the RFA; but there is very heavy arterial calcification noted. Arterial hemostasis is obtained without difficulty using manual pressure. The patient was transferred from the catheterization laboratory in fully stable condition back to the PCU unit for ongoing care including by the primary hospitalist team. I discussed the procedure, findings, and management considerations with the patient (no family present); with Cardiology (Dr. Holt); and with the hospitalist team (Dr. Christianson). FINDINGS: LMCA: Note a 40% distal tapering. The left main coronary artery is a large moderately short vessel. There is very heavy aortic calcification near the ostium of the LMCA. There is an angiographically unimpressive intermediate distal tapering noted (QCA calculates 41% stenosis). LAD: Intact. The left anterior descending coronary artery is a large transapical vessel with moderate diffuse atherosclerotic plaquing including angiographically unimpressive 40% proximal plaque. There are no large diagonals present. LCX: Note 40% focal ostial narrowing; and occluded mid LCX with collaterals to three distal OMs coming from large OM-1. The circumflex is consistent with the prior description of occluded OM. There is a large first OM and an occlusion prior to the mid and distal circumflex which has at least three OM branches filled by collaterals. The continuation circumflex is a small vessel with 90% focal ostial narrowing noted. RCA: Dominant. Occluded at the ostium with heavy calcification throughout the RCA. There are antegrade bridging collaterals proximally. The distal branches of the RCA are filled only modestly by left to right collaterals primarily from the septal arcade. LHC: LVED 27 mmHg; and no systolic gradient on pullback across the aortic valve. CONCLUSIONS: CORONARY ARTERY DISEASE (CAD): LMCA (moderate distal narrowing); and two-vessel disease including chronic ostial occlusion of RCA; and chronic occlusion of mid LCX and three distal OMs. Modest collaterals are present to distal LCX; and to distal RCA. LHC: Elevated LVED noted. RECOMMENDATIONS: 1. COMMENT: No severe coronary lesions are found that appear likely to be responsible for his recently identified lower ejection fraction and heart failure; and no lesions that appear would benefit him by revascularization. IVUS or FFR of intermediate narrowing of distal LMCA, and of ostial LCX was considered; but these lesions do not appear severe in a way that would be responsible for his current heart failure. 2. OMT--guideline directed optimal medical therapy for his underlying coronary disease and for his heart failure including ASA 81 mg daily; statin; and beta-verena currently on hold because of his bradycardia until consideration of ICD; and ROSALIO inhibitor currently on hold in view of his chronic renal insufficiency and contrast given today. Consider ongoing diuresis and chronic long-acting nitrate therapy.
[2016-12-29] MEDS ORDERED: 0.9% Sodium Chloride 250 ML BOLUS IV PRN (12:10)
[2016-12-29] MEDS ORDERED: 0.9% Sodium Chloride 1,000 ML IV SCH (12:10)
[2016-12-29] MEDS ORDERED: Atropine 1 mg/10 mL (Code) Syringe IVPUSH PRN (12:10)
[2016-12-29] MEDS ORDERED: Ondansetron 2 mg/mL 2 mL Inj IVPUSH PRN (12:10)
[2016-12-29] MEDS ORDERED: ISOS30TA4 PO (15:59)
[2016-12-29] MEDS ORDERED: FURO-129 PO (15:59)
[2016-12-29] MEDS ORDERED: Furosemide 10 mg/mL 4 mL Inj IVPUSH ONE (17:05)
--- NOTE | 2016-12-29 21:52 | PCM.PNMED ---
Subjective Date of Service Dec 29, 2016 Subjective Subjective: Patient lying in bed in exam, states that he is feeling well, no complaints at this time. States that he has been very satisfied with his care thus far in the hospital Events Overnight: No acute events overnight. ROS: Denies fever/chills, nausea/vomiting, headache, weakness, abdominal pain, chest pain, shortness of breath, increased swelling in hands or feet. Exam Vital Signs Vital Sign - Last Date Time Temp Pulse Resp B/P Pulse Ox O2 Delivery O2 Flow Rate FiO2 12/29/16 20:51 36.4 71 17 152/80 98 Room Air 12/27/16 02:48 2.00 Intake and Output 12/28/16 12/28/16 12/29/16 Cumulative From/Thru 15:00 23:00 07:00 12/26/16 21:54 - 12/29/16 06:21 Intake Total 800 ml 500 ml 5119 ml Output Total 500 ml 1550 ml 2640 ml Balance 300 ml -1050 ml 2479 ml Intake Oral 800 ml 500 ml 3200 ml IV Total 1919 ml Output Urine Total 500 ml 1550 ml 2640 ml # Voids 6 9 Exam General: No acute distress, well-developed, well-nourished Head: Normocephalic, minor erythema of the left orbital area. 2 cm laceration over the left eyebrow. 2 cm lesion over the left voodoo. External ears without defect. Eyes: Pupils equal, round, and reactive to light and accommodation. Anicteric sclerae, moist conjunctivae. Neck: Normal range of motion, no lymphadenopathy noted Cardiovascular: Regular rate and rhythm with no murmurs, rubs, or gallops appreciated Pulmonary: Clear to auscultation bilaterally with no crackles, wheezes, or rhonchi. Normal respiratory effort with no use of accessory muscles. Abdomen: Bowel tones present. Soft, nontender, nondistended. Extremities: No clubbing, cyanosis, edema Skin: Normal temperature, turgor, and texture; no rash, ulcers, or subcutaneous nodules appreciated. Neurological: Cranial nerves grossly intact. Reflexes, coordination, and sensory function within normal limits. Normal muscle strength, tone, and bulk. Psychiatric: Normal mood and affect. Alert and oriented to person, place, and time IVs and Medications Medications Reviewed: Medications were reviewed in detail Lab and Diagnostics Result Diagram: 12/29/1621912/29/16219 Microbiology Blood culture 2 pending. . X-Rays, CTs and MRIs CT BRAIN WITHOUT CONTRAST IMPRESSION: No acute intracranial disease process. Dictated by: Gwendolyn Pena MD, PhD on 12/26/2016 at 18:13 X-RAY CHEST ONE VIEW, PORTABLE IMPRESSION: Subtle bibasilar opacities likely represent atelectasis, however finding is nonspecific and correlation with clinical and laboratory data is recommended to exclude early pneumonia. Dictated by: Gwendolyn Pena MD, PhD on 12/26/2016 at 19:10 . 12-lead ECG EKG: Sinus bradycardia, heart rate 52, normal axis, low voltage throughout precordial leads, prolonged VA interval at 220 ms and QTc at 500 ms, otherwise normal intervals, nonspecific T-wave inversion in lead V5, no pathological Q waves or acute ischemic changes such as ST elevation or depression. . Cardiac Echo Impressions Echocardiogram Interpretation Summary 1) Moderately dilated left ventricle wtih severely reduced function (EF 20-25%). 2) Severe global hypokinesis present. 3) Moderately dilated right ventricular with moderately reduced function. 4) Mild aortic stenosis present (calculated valve area 1.6cm2). 5) Pulmonary hypertension present, systolic pulmonary pressure estimated at 64 mmHg assuming a right atrial pressure of 15 mm Hg. 6) Compared to the Echo done 02/10/2016, LV function has dropped significantly from 45-50% to 20-25% on today's study. Reading Physician:05:24 PM Additional Diagnostics DIAGNOSTIC CARDIAC CATHETERIZATION FINDINGS: LMCA: Note a 40% distal tapering. The left main coronary artery is a large moderately short vessel. There is very heavy aortic calcification near the ostium of the LMCA. There is an angiographically unimpressive intermediate distal tapering noted (QCA calculates 41% stenosis). LAD: Intact. The left anterior descending coronary artery is a large transapical vessel with moderate diffuse atherosclerotic plaquing including angiographically unimpressive 40% proximal plaque. There are no large diagonals present. LCX: Note 40% focal ostial narrowing; and occluded mid LCX with collaterals to three distal OMs coming from large OM-1. The circumflex is consistent with the prior description of occluded OM. There is a large first OM and an occlusion prior to the mid and distal circumflex which has at least three OM branches filled by collaterals. The continuation circumflex is a small vessel with 90% focal ostial narrowing noted. RCA: Dominant. Occluded at the ostium with heavy calcification throughout the RCA. There are antegrade bridging collaterals proximally. The distal branches of the RCA are filled only modestly by left to right collaterals primarily from the septal arcade. LHC: LVED 27 mmHg; and no systolic gradient on pullback across the aortic valve. Satish Zaragoza MD 12/29/16 1050 Assessment & Plan Jayson Vuong is a 76-year-old male who is a poor historian with a past medical history significant for orthostatic hypotension, diabetes mellitus type II, non- insulin using, CAD, hyperlipidemia, and left renal carcinoma status post nephrectomy who presented to [facility] emergency department via EMS due near syncope with ground level fall. Acute near syncopal episode with ground level fall, present on admission. Active. - Patient presented after a near syncopal episode with ground level fall. - Differential diagnosis includes: Orthostatic hypotension. Possible cardiac etiology including arrhythmia or valvular heart disease versus vasovagal versus neurogenic. - CT brain 2 negative, as above. - Echocardiogram shows EF of 20-25% as above, - Cardiology consulted, cath on 12/29 report as above - Continue telemetry. - Continue Physical therapy - IV Lasix initiated 40 mg twice a day Acute on chronic systolic congestive heart failure, present on admission, active - Echocardiogram completed today shows ejection fraction of 20-25% with severe global hypokinesis other findings as above - Echocardiogram findings represent a significant change from echo completed on 02/10/2016 previous EF 45-50% - EKG revealed sinus bradycardia with first-degree AV block and significantly prolonged QTC of 500 ms. Avoid QTC prolonging medications - Cath Complete results as above - Continue to Hold midodrine 5 mg - IV Lasix initiated 40 mg twice a day Recent upper respiratory tract infection, present on admission. Resolving. - Patient recently had a minor URI 2 weeks that is resolving. - Chest x-ray demonstrated subtle bibasilar opacities likely represent atelectasis, as above. Penile inversion, present on admission, stable - Patient is able to urinate - May require future urology consult as an outpatient Chronic problems: Diabetes mellitus type II, insulin using, present on admission. Stable. - Hemoglobin A1c 6.5% in 01/2016. Repeat hemoglobin A1c pending. - Held oral anti-glycemic. - Heart healthy/carbohydrate consistent diet. - Patient is reportedly off of all insulin as there may have been a component of hypoglycemia contributing to his orthostasis. - Low-dose correctional scale insulin for coverage. Hyperlipidemia, present on admission. Stable. - Continue atorvastatin 20 mg daily at bedtime CAD, present on admission. Stable. - Continue aspirin 325 mg daily Depression, present on admission. Stable. - Continue fluoxetine 20 mg daily GERD, present on admission. Stable. - Not medically treated. BPH, present on admission. Stable. - Previously on tamsulosin 0.4 mg daily at bedtime but per patient this medication has been stopped likely due to orthostasis. PRN antiemetics: Promethazine and Maalox. PRN bowel regimen: Senna and MiraLAX. PRN analgesics: Tylenol. Disposition: Cardiology consulted for CHF evaluation, I expect the patient will require 1-2 more nights of inpatient management before discharge home. . VTE Prophylaxis: Sub-Q Heparin (Unfractionated) Resuscitation Status: CPR: Attempt Resuscitation Attending Statement The patient was seen and examined together with Dr. Deleon on 12/29/2016 and I agree with the history, exam and plan as outlined in the note above. . Marvin Deleon DO Dec 29, 2016 21:52 Dave Christianson MD Dec 30, 2016 07:41
[2016-12-30] VITALS (9 sets, daily range): BP systolic 129–162; BP diastolic 67–89; PULSE 51–80; RESP 16–24; O2SAT 95–98
[2016-12-30] MEDS: Sodium Chloride LOK Flush 10 mL Syringe IVFLUSH SCH ×3 (00:29→17:06)
--- NOTE | 2016-12-30 05:51 | NUR ---
Groin site R groin site soft, non-tender, no drainage noted. Dressed with dry gauze and tegaderm. Pedal pulses weak per baseline, cap refill 2 sec. Urine output responsive to diuretics, 2100 output this shift. VSS, pt c/o moderate pain surrounding L eye abrasion, resolved w APAP. Plan to DC tomorrow with home health.
[2016-12-30] MEDS ORDERED: Furosemide 10 mg/mL 4 mL Inj IVPUSH SCH (08:30)
[2016-12-30] MEDS: Insulin LISPRO 300 Unit/3 mL Inj SUBQ SCH ×4 (08:58→20:21)
--- NOTE | 2016-12-30 09:15 | NUR ---
[facility] MOLD TOOLER witnessed [facility] signature. Anika Dorantes, MOLD TOOLER
--- NOTE | 2016-12-30 09:52 | PROG NOTE ---
[address] [address] PROGRESS NOTE PATIENT: KAROLYN LOMBARDO : 1940 MR#: [id number] ADMIT: 12/27/2016 JOB ID: [id number] DATE: 12/30/2016 SUBJECTIVE: The patient underwent cardiac catheterization yesterday without difficulty. This revealed mild distal left main disease of around 40%, but no high-grade stenosis in the left main or LAD. He continued to have an occluded mid left circumflex and RCA. There was no clear opportunities for revascularization. LVEDP was 27 mmHg. On the basis of this, he was given a dose of IV Lasix and has had fairly good diuresis and has noted reduction in his peripheral edema. He continues to deny any angina or dyspnea. He has been up to the bathroom, but has not ambulated otherwise. He denies any sense of any lightheadedness and has had no symptoms from the femoral site. PHYSICAL EXAMINATION: HR 80. Blood pressure 148/89. O2 saturation 95% on room air. He diuresed around 1.7 L although his weight is only down 0.7 kg from yesterday. Lungs clear. Cardiovascular regular rate and rhythm with a 1/6 systolic murmur at the apex. There are no gallops. JVP appears to be around 7-8 cm. Abdomen soft, nondistended, nontender. Extremities 1-2+ bilateral pitting edema with less scrotal and penile edema. The arteriotomy site shows no hematoma or bruit. LABORATORY: Hematocrit 45%. Potassium this morning is 4.4 with a BUN of 28 and a creatinine of 1.4. Glucose 234. IMPRESSION: 1. Severe left ventricular systolic dysfunction likely mixed etiology. There is no clear culprit lesion to account for his global hypokinesis and thus I suspect this is more of a dilated cardiomyopathy on top of an ischemic cardiomyopathy. Medical therapy is continued to be limited by his history of postural hypotension and bradycardia. Given that I do not see a lot of opportunities to advance his beta blockade in the absence of pacemaker therapy, I have asked Dr. Perez to consult on the patient for consideration of an ICD. This will allow reinstitution of an optimization of beta blockade. I remain somewhat reluctant to institute angiotensin-converting enzyme inhibitor given his known renal insufficiency and single kidney. Given this, I will institute long-acting nitrates. Low-dose angiotensin-converting enzyme inhibitor may be able to be added at a later date if his renal function improves. He continues to have some evidence of volume overload, and I would continue with gentle diuresis with close observation of his renal function. 2. History of near syncope and postural hypotension. As above. Has not demonstrated any symptoms or arrhythmias here, but given his severe left ventricular systolic dysfunction. He is clearly at risk for such. Again, prophylactic implantable cardioverter defibrillator placement would be appropriate. 3. Chronic renal insufficiency status post left nephrectomy. He continues to need to be followed. 4. Hypothyroidism with borderline elevated TSH. Per the hospitalist. 5. Diabetes with poor blood sugar control. Per the hospitalist service. 6. Hypertension. Will institute Imdur. PLAN: 1. Restart low-dose carvedilol at 3.125 mg b.i.d. and institute Imdur 60 mg daily. I will continue with furosemide 40 mg p.o. daily with close observation of his renal function. 2. Consultation by Dr. Perez for consideration of AICD placement. 3. Continue management of his diabetes and thyroid per the hospitalist service. TIME: I spent 42 minutes reviewing the patient's cardiac catheterization images, interviewing and examining the patient, and discussing with Dr. Perez.
--- NOTE | 2016-12-30 14:03 | PCM.PNMED ---
Subjective Date of Service Dec 30, 2016 Subjective Today Mr. Vuong states that he is feeling well, stronger day by day. He is looking forward to his meeting with cardiology to discuss the possibility of AICD placement. He denies chest pain, SOB, dizziness or near syncope. Continue to endorse pain around facial abrasion and ecchymosis from fall. No significant overnight events Comprehensive ROS negative except as listed above Exam Vital Signs Vital Sign - Last Date Time Temp Pulse Resp B/P Pulse Ox O2 Delivery O2 Flow Rate FiO2 12/30/16 12:22 36.4 58 22 133/67 96 Room Air 12/27/16 02:48 2.00 Intake and Output 12/29/16 12/29/16 12/30/16 Cumulative From/Thru 15:00 23:00 07:00 12/26/16 21:54 - 12/30/16 05:35 Intake Total 1174 ml 750 ml 7043 ml Output Total 800 ml 2100 ml 5540 ml Balance 374 ml -1350 ml 1503 ml Intake Oral 500 ml 300 ml 4000 ml IV Total 674 ml 450 ml 3043 ml Output Urine Total 800 ml 2100 ml 5540 ml # Voids 9 # Bowel Movements 0 0 0 Exam Gen: A/O x3 pleasant cooperative elderly gentleman in NAD Neck: supple, non tender, no JVD, full ROM HEENT: abrasion and ecchymosis around left eye improved since prior exam, PERRL , EOMI, no scleral icterus. CV: RRR, no murmurs rubs or gallops Resp: Lungs CTA BL, no wheezing rales or rhonchi Abd: Soft, no rebound guarding tenderness or masses. Extr: no clubbing cyanosis or edema Neuro: CN 2-12 grossly intact, no focal neurologic deficit Psych: Pleasant and appropriate mood and affect. IVs and Medications Medications Reviewed: Medications were reviewed in detail Lab and Diagnostics Item Value Date Time Red Blood Count 5.68 mil/mm3 12/29/16 022 Mean Corpuscular Volume 79.6 fL L 12/29/16219 Mean Corpuscular Hemoglobin 25.0 pg L 12/29/16219 Mean Corpuscular Hemoglobin Concent 31.4 % L 12/29/16 022 Red Cell Distribution Width 19.0 % H 12/29/16 022 Estimat Glomerular Filtration Rate 53 mL/min 12/30/16 0235 Calcium Level 8.4 mg/dL L 12/30/16234 Result Diagram: 12/29/16 0220 12/30/16234 Microbiology Blood culture 2 no growth to date . X-Rays, CTs and MRIs CT BRAIN WITHOUT CONTRAST IMPRESSION: No acute intracranial disease process. Dictated by: Gwendolyn Pena MD, PhD on 12/26/2016 at 18:13 X-RAY CHEST ONE VIEW, PORTABLE IMPRESSION: Subtle bibasilar opacities likely represent atelectasis, however finding is nonspecific and correlation with clinical and laboratory data is recommended to exclude early pneumonia. Dictated by: Gwendolyn Pena MD, PhD on 12/26/2016 at 19:10 . 12-lead ECG EKG: Sinus bradycardia, heart rate 52, normal axis, low voltage throughout precordial leads, prolonged [place] interval at 220 ms and QTc at 500 ms, otherwise normal intervals, nonspecific T-wave inversion in lead V5, no pathological Q waves or acute ischemic changes such as ST elevation or depression. . Cardiac Echo Impressions Echocardiogram Interpretation Summary 1) Moderately dilated left ventricle wtih severely reduced function (EF 20-25%). 2) Severe global hypokinesis present. 3) Moderately dilated right ventricular with moderately reduced function. 4) Mild aortic stenosis present (calculated valve area 1.6cm2). 5) Pulmonary hypertension present, systolic pulmonary pressure estimated at 64 mmHg assuming a right atrial pressure of 15 mm Hg. 6) Compared to the Echo done 02/10/2016, LV function has dropped significantly from 45-50% to 20-25% on today's study. Reading Physician:05:24 PM . Additional Diagnostics DIAGNOSTIC CARDIAC CATHETERIZATION FINDINGS: LMCA: Note a 40% distal tapering. The left main coronary artery is a large moderately short vessel. There is very heavy aortic calcification near the ostium of the LMCA. There is an angiographically unimpressive intermediate distal tapering noted (QCA calculates 41% stenosis). LAD: Intact. The left anterior descending coronary artery is a large transapical vessel with moderate diffuse atherosclerotic plaquing including angiographically unimpressive 40% proximal plaque. There are no large diagonals present. LCX: Note 40% focal ostial narrowing; and occluded mid LCX with collaterals to three distal OMs coming from large OM-1. The circumflex is consistent with the prior description of occluded OM. There is a large first OM and an occlusion prior to the mid and distal circumflex which has at least three OM branches filled by collaterals. The continuation circumflex is a small vessel with 90% focal ostial narrowing noted. RCA: Dominant. Occluded at the ostium with heavy calcification throughout the RCA. There are antegrade bridging collaterals proximally. The distal branches of the RCA are filled only modestly by left to right collaterals primarily from the septal arcade. LHC: LVED 27 mmHg; and no systolic gradient on pullback across the aortic valve. Satish Zaragoza MD 12/29/16 1050 Assessment & Plan Jayson Vuong is a 76-year-old male who is a poor historian with a past medical history significant for orthostatic hypotension, diabetes mellitus type II, non- insulin using, CAD, hyperlipidemia, and left renal carcinoma status post nephrectomy who presented to [facility] emergency department via EMS due near syncope with ground level fall. Acute near syncopal episode with ground level fall, present on admission. Active. - Patient presented after a near syncopal episode with ground level fall. - Differential diagnosis includes: Orthostatic hypotension. Possible cardiac etiology including arrhythmia or valvular heart disease versus vasovagal versus neurogenic. - CT brain 2 negative, as above. - Echocardiogram shows EF of 20-25% as above, - Cardiology consulted, cath on 12/29 report as above - Continue telemetry. - Continue Physical therapy - Lasix 40 mg PO daily Acute on chronic systolic congestive heart failure, present on admission, active - Echocardiogram completed today shows ejection fraction of 20-25% with severe global hypokinesis other findings as above - Echocardiogram findings represent a significant change from echo completed on 02/10/2016 previous EF 45-50% - EKG revealed sinus bradycardia with first-degree AV block and significantly prolonged QTC of 500 ms. Avoid QTC prolonging medications - Cath Complete results as above - Continue to Hold midodrine 5 mg - Lasix as above - Coreg as directed by cardiology - Isosorbide mononitrate as directed by cardiology - Patient is being evaluated for possible AICD placement. Recent upper respiratory tract infection, present on admission. Resolving. - Patient recently had a minor URI 2 weeks that is resolving. - Chest x-ray demonstrated subtle bibasilar opacities likely represent atelectasis, as above. Penile inversion, present on admission, stable - Patient is able to urinate - May require future urology consult as an outpatient Chronic problems: Diabetes mellitus type II, insulin using, present on admission. Stable. - Hemoglobin A1c 6.5% in 01/2016. Repeat hemoglobin A1c 8.7% - Held oral anti-glycemic. - Heart healthy/carbohydrate consistent diet. - Low-dose correctional scale insulin for coverage. Hyperlipidemia, present on admission. Stable. - Continue atorvastatin 20 mg daily at bedtime CAD, present on admission. Stable. - Continue aspirin 325 mg daily Depression, present on admission. Stable. - Continue fluoxetine 20 mg daily GERD, present on admission. Stable. - Not medically treated. BPH, present on admission. Stable. - Previously on tamsulosin 0.4 mg daily at bedtime but per patient this medication has been stopped likely due to orthostasis. PRN antiemetics: Promethazine and Maalox. PRN bowel regimen: Senna and MiraLAX. PRN analgesics: Tylenol. Disposition: Patient is being evaluated for possible AICD placement tomorrow, would need a further 24 hours of observation post procedure. . Pain Evaluation: Adequate Pain Control VTE Prophylaxis: Sub-Q Heparin (Unfractionated) Resuscitation Status: CPR: Attempt Resuscitation Attending Statement The patient was seen and examined together with Dr. Do on 12/30/2016 and I agree with the history, exam and plan as outlined in the note above. . Michael Do DO Dec 30, 2016 14:03 Dave Christianson MD Dec 30, 2016 15:56
[2016-12-30] MEDS: Isosorbide Mononitrate 60 mg ER24 Tablet PO SCH (14:08)
[2016-12-30] MEDS ORDERED: 0.9% Sodium Chloride 1,000 ML IV PRN (15:08)
[2016-12-30] MEDS ORDERED: Vancomycin Inj 1,000 MG in IV Premix 1 EACH IV ONE (15:22)
--- NOTE | 2016-12-30 16:26 | CONS ---
[address] [address] CONSULTATION REPORT PATIENT: KAROLYN LOMBARDO : 1940 MR#: [id number] ADMIT: 12/27/2016 JOB ID: [id number] DATE OF SERVICE: 12/30/2016 HISTORY OF PRESENT ILLNESS: The patient is a 76-year-old man seen in consultation requested of Dr. Holt regarding ischemic cardiomyopathy with severe left ventricular systolic dysfunction, and bradycardia limiting therapy with beta blockers, with a consideration of an implantable defibrillator for primary prevention. The patient has a long history of coronary artery disease and ischemic heart disease with previous interventions and angioplasty with treatments at [facility], [facility], [facility]. He has most recently been followed by Dr. Larsen. The patient has history of syncopal and presyncopal episodes, and had sustained a fall precipitating his current admission. His recollection of it is somewhat vague, and it is not clear if he tripped and fell or had postural hypotension or an element of syncope from his description. He did hit the door with his eye and required sutures for this. He was found to have worsened left ventricular systolic dysfunction, despite adequate medical therapy. He has recently noted increased peripheral edema though denies any increased dyspnea. He is a somewhat rambling historian, but is alert and oriented. He has lost weight over the last year which he attributed to the controlled diet when he was in the [facility]. He states he is now living independently with assistance from neighbors. He has a history of hypertension, diabetes, and hyperlipidemia. He has not smoked cigarettes for the past 40 years. Family history is positive for heart disease in his father. Review of his echocardiogram shows worsened left ventricular systolic function with ejection fraction of 20% to 25% with global hypokinesis, and inferolateral akinesis. There is moderate pulmonary hypertension. He underwent cardiac catheterization on December 27 which showed two-vessel disease with occlusion of the distal RCA and occlusion of the mid circumflex. He is not felt to be a candidate for any further interventions. He tolerated the procedure without difficulty. The remainder of his history, past history, medications, review of systems, and social history are unchanged from Dr. Holt's consultation of 12/28/2016 and not reiterated. PHYSICAL EXAMINATION: Shows a pleasant, mildly overweight man sitting comfortably, alert, oriented, appropriate but rambling historian. Telemetry shows sinus rhythm. There is no conjunctival pallor or icterus. There is no JVD. No carotid bruit. Chest shows diminished breath sounds at the bases with bibasilar rales. Heart rhythm regular without murmurs or gallops. He has a bruise on his left scalp and a laceration over his left brow. Abdomen is soft and nontender. There is 1+ pitting presacral edema and 2 to 3+ bilateral pedal edema. Right groin site is slightly tender without significant hematoma. Labs, x-rays and EKGs are reviewed. IMPRESSION: 1. Possible presyncopal episode versus fall, no documented arrhythmia. 2. Ischemic cardiomyopathy, chronic, progressive with severe left ventricular systolic dysfunction. 3. Acute on chronic congestive heart failure, systolic dysfunction. 4. Coronary artery disease, occluded distal right coronary artery and circumflex. 5. Chronic renal insufficiency. 6. History of renal cell carcinoma. 7. Diabetes mellitus. RECOMMENDATIONS: I discussed management of his left ventricular dysfunction, risks, potential for cardiac arrest, and agree with indication for an ICD. In order to enable adequate beta blockade and management of his heart failure, a dual-chamber defibrillator will be implanted. The patient is interested in preventive and protective measures and agreeable with defibrillator placement. He will need continued management of his heart failure and systolic dysfunction with further titration of his medical therapy following defibrillator implantation. An hour and 50 minutes was spent reviewing the patient's records, discussing with Dr. Holt, and assessing the patient directly.
--- NOTE | 2016-12-30 17:54 | NUR ---
Social Work- Readiness for D/C Data: EMR reviewed. Pt is on day 3 of hospitalization. Pt discussed in rounds, pt likely to d/c tomorrow with HH services. Pt to have AICD placed prior to d/c. Pt to d/c home with Galilea FIGUEROA RN PT CHEESEMAKER via POV. SW will continue to follow. Assessment: Pt for whom HH is medically necessary Plan: Pt to d/c home with Galilea FIGUEROA RN PT CHEESEMAKER, transport via POV. Galilea has F2F. SW will continue to follow. Anika Dorantes, CHEESEMAKER
--- NOTE | 2016-12-30 18:21 | NUR ---
Mentation/Activity/Incontinence Pt experiencing decreased mentation this afternoon. Pt awoke from nap and believed that he was in [place], and that he wanted to go and check his mail. Pt reoriented but continues to have episodic confusion. Pt declined to walk with PT today. Cooperated in performing bed exercises. Pt has been up to chair for all meals and ambulates with FWW and minimal assistance to BR. Pt incontinent of urine during this shift.
[2016-12-31] VITALS (16 sets, daily range): BP systolic 122–160; BP diastolic 56–84; PULSE 54–68; RESP 10–20; O2SAT 93–100
[2016-12-31] MEDS: Sodium Chloride LOK Flush 10 mL Syringe IVFLUSH SCH ×4 (00:30→23:44)
[2016-12-31 03:23] LABS: BASOPHILS % (AUTO) 0.2 % (0-3); EOSINOPHILS % (AUTO) 2.2 % (0-5); MONOCYTES % (AUTO) 7.8 % (4-12); Mean Corpuscular Hemoglobin 24.9 pg (27.0-35.0); Mean Corpuscular Volume 79.9 fL (81-100); NEUTROPHILS % (AUTO) 74.9 % (40-74); Platelet Count 111 bil/L (150-400)
[2016-12-31 03:45] LABS: INR 1.16 ratio
[2016-12-31 03:47] LABS: Magnesium 1.6 mg/dL (1.6-2.6); Phosphorus 3.2 mg/dL (2.5-4.9)
--- NOTE | 2016-12-31 05:27 | NUR ---
Mentation/Activity Pt confused at times during shift, not able to remember where he is at but able to reorient quickly. Pt awoke at 0000 and wanted to sit in chair for a while. Pt in chair until about 0130 then requesting to go back to bed. Pt able to rest intermittently during this shift. No CP, SOB or dizziness noted. Pt incontinent of urine x1 this shift. VSS and Tele SB 50's to 60's.
[2016-12-31] MEDS: Insulin LISPRO 300 Unit/3 mL Inj SUBQ SCH ×4 (08:00→20:39)
[2016-12-31] MEDS: Isosorbide Mononitrate 60 mg ER24 Tablet PO SCH (09:08)
[2016-12-31] MEDS ORDERED: Water for Injection 50 ML IV ONE (12:11)
[2016-12-31] MEDS ORDERED: Vancomycin 1,000 mg Inj ONE (12:11)
[2016-12-31] MEDS ORDERED: 0.9% Sodium Chloride 500 ML ONE (12:11)
[2016-12-31] MEDS ORDERED: Bupivacaine-MPF 0.5% 30 mL Inj ONE (12:11)
[2016-12-31] MEDS ORDERED: 0.9% Sodium Chloride 1,000 ML ONE (12:11)
[2016-12-31] MEDS ORDERED: Heparin 10,000 Unit/1,000 mL NS Premix IV ONE (12:11)
[2016-12-31] MEDS ORDERED: fentaNYL-PF 50 mCg/mL 2 mL Inj ONE (12:12)
[2016-12-31] MEDS: 0.9% Sodium Chloride 1,000 ML IV SCH ×2 (14:17→23:44)
[2016-12-31] MEDS ORDERED: Ondansetron 2 mg/mL 2 mL Inj IVPUSH PRN (14:20)
[2016-12-31] MEDS ORDERED: HYDROcodone-APAP 5-325 mg Tablet PO PRN (14:20)
--- NOTE | 2016-12-31 14:20 | NUR ---
FROM NOTCHING PRESS OPERATOR. SEE FLOW SHEET
--- NOTE | 2016-12-31 15:21 | PCM.PNMED ---
Subjective Date of Service Dec 31, 2016 Subjective Subjective: Patient remains jovial and optimistic about his care. He states that he is in agreement with the ICD placement today. Events Overnight: No acute events overnight. ROS: Swelling in the legs, Denies fever/chills, nausea/vomiting, headache, weakness, abdominal pain, chest pain, shortness of breath. Exam Vital Signs Vital Sign - Last Date Time Temp Pulse Resp B/P Pulse Ox O2 Delivery O2 Flow Rate FiO2 12/31/16 15:00 60 14 138/63 94 Room Air 12/31/16 08:45 36.6 12/27/16 02:48 2.00 Intake and Output 12/30/16 12/30/16 12/31/16 Cumulative From/Thru 15:00 23:00 07:00 12/26/16 21:54 - 12/31/16 06:24 Intake Total 800 ml 300 ml 8143 ml Output Total 1175 ml 475 ml 7190 ml Balance -375 ml -175 ml 953 ml Intake Oral 800 ml 300 ml 5100 ml IV Total 3043 ml Output Urine Total 1175 ml 475 ml 7190 ml # Voids 1 4 14 # Bowel Movements 1 1 Exam General: No acute distress, well-developed, well-nourished Head: Normocephalic, 2 cm laceration over the left eyebrow. 2 cm lesion over the left nondenominational. External ears without defect. Eyes: Pupils equal, round, and reactive to light and accommodation. Anicteric sclerae, moist conjunctivae. Neck: Normal range of motion, no lymphadenopathy noted Cardiovascular: Regular rate and rhythm with no murmurs, rubs, or gallops appreciated Pulmonary: Clear to auscultation bilaterally with no crackles, wheezes, or rhonchi. Normal respiratory effort with no use of accessory muscles. Abdomen: Bowel tones present. Soft, nontender, nondistended. Extremities: No clubbing, cyanosis, 2+ edema of the lower legs bilaterally extending up to the knee. Skin: Normal temperature, turgor, and texture; no rash, ulcers, or subcutaneous nodules appreciated. Neurological: Cranial nerves grossly intact. Reflexes, coordination, and sensory function within normal limits. Normal muscle strength, tone, and bulk. Psychiatric: Normal mood and affect. Alert and oriented to person, place, and time IVs and Medications Medications Reviewed: Medications were reviewed in detail Lab and Diagnostics Result Diagram: 12/31/16 0300 12/31/16 0300 Microbiology Blood culture 2 no growth to date . X-Rays, CTs and MRIs CT BRAIN WITHOUT CONTRAST IMPRESSION: No acute intracranial disease process. Dictated by: Gwendolyn Pena MD, PhD on 12/26/2016 at 18:13 X-RAY CHEST ONE VIEW, PORTABLE IMPRESSION: Subtle bibasilar opacities likely represent atelectasis, however finding is nonspecific and correlation with clinical and laboratory data is recommended to exclude early pneumonia. Dictated by: Gwendolyn Pena MD, PhD on 12/26/2016 at 19:10 . 12-lead ECG EKG: Sinus bradycardia, heart rate 52, normal axis, low voltage throughout precordial leads, prolonged [place] interval at 220 ms and QTc at 500 ms, otherwise normal intervals, nonspecific T-wave inversion in lead V5, no pathological Q waves or acute ischemic changes such as ST elevation or depression. . Cardiac Echo Impressions Echocardiogram Interpretation Summary 1) Moderately dilated left ventricle wtih severely reduced function (EF 20-25%). 2) Severe global hypokinesis present. 3) Moderately dilated right ventricular with moderately reduced function. 4) Mild aortic stenosis present (calculated valve area 1.6cm2). 5) Pulmonary hypertension present, systolic pulmonary pressure estimated at 64 mmHg assuming a right atrial pressure of 15 mm Hg. 6) Compared to the Echo done 02/10/2016, LV function has dropped significantly from 45-50% to 20-25% on today's study. Reading Physician:05:24 PM . Additional Diagnostics DIAGNOSTIC CARDIAC CATHETERIZATION FINDINGS: LMCA: Note a 40% distal tapering. The left main coronary artery is a large moderately short vessel. There is very heavy aortic calcification near the ostium of the LMCA. There is an angiographically unimpressive intermediate distal tapering noted (QCA calculates 41% stenosis). LAD: Intact. The left anterior descending coronary artery is a large transapical vessel with moderate diffuse atherosclerotic plaquing including angiographically unimpressive 40% proximal plaque. There are no large diagonals present. LCX: Note 40% focal ostial narrowing; and occluded mid LCX with collaterals to three distal OMs coming from large OM-1. The circumflex is consistent with the prior description of occluded OM. There is a large first OM and an occlusion prior to the mid and distal circumflex which has at least three OM branches filled by collaterals. The continuation circumflex is a small vessel with 90% focal ostial narrowing noted. RCA: Dominant. Occluded at the ostium with heavy calcification throughout the RCA. There are antegrade bridging collaterals proximally. The distal branches of the RCA are filled only modestly by left to right collaterals primarily from the septal arcade. LHC: LVED 27 mmHg; and no systolic gradient on pullback across the aortic valve. Satish Zaragoza MD 12/29/16 1050 Assessment & Plan Jayson Vuong is a 76-year-old male who is a poor historian with a past medical history significant for orthostatic hypotension, diabetes mellitus type II, non- insulin using, CAD, hyperlipidemia, and left renal carcinoma status post nephrectomy who presented to [facility] emergency department via EMS due near syncope with ground level fall. Acute near syncopal episode with ground level fall, present on admission. Active. - Patient presented after a near syncopal episode with ground level fall. - Differential diagnosis includes: Orthostatic hypotension. Possible cardiac etiology including arrhythmia or valvular heart disease versus vasovagal versus neurogenic. - CT brain 2 negative, as above. - Echocardiogram shows EF of 20-25% as above, - Cardiology consulted, cath on 12/29 report as above - Continue telemetry. - Continue Physical therapy - Lasix 40 mg PO daily Acute on chronic systolic congestive heart failure, present on admission, active - Echocardiogram completed today shows ejection fraction of 20-25% with severe global hypokinesis other findings as above - Echocardiogram findings represent a significant change from echo completed on 02/10/2016 previous EF 45-50% - EKG revealed sinus bradycardia with first-degree AV block and significantly prolonged QTC of 500 ms. Avoid QTC prolonging medications - Cath Complete results as above - Continue to Hold midodrine 5 mg - Lasix as above - Coreg as directed by cardiology - Isosorbide mononitrate as directed by cardiology - Cardiology to place AICD on 12/31 Penile inversion, present on admission, stable - Patient is able to urinate - May require future urology consult as an outpatient Chronic problems: Diabetes mellitus type II, insulin using, present on admission. Stable. - Hemoglobin A1c 6.5% in 01/2016. Repeat hemoglobin A1c 8.7% - Held oral anti-glycemic. - Heart healthy/carbohydrate consistent diet. - Low-dose correctional scale insulin for coverage. Hyperlipidemia, present on admission. Stable. - Continue atorvastatin 20 mg daily at bedtime CAD, present on admission. Stable. - Continue aspirin 325 mg daily Depression, present on admission. Stable. - Continue fluoxetine 20 mg daily GERD, present on admission. Stable. - Not medically treated. BPH, present on admission. Stable. - Previously on tamsulosin 0.4 mg daily at bedtime but per patient this medication has been stopped likely due to orthostasis. PRN antiemetics: Promethazine and Maalox. PRN bowel regimen: Senna and MiraLAX. PRN analgesics: Tylenol. Disposition: Patient is being evaluated for possible AICD placement today, will need 24 hours of observation post procedure. . VTE Prophylaxis: Sub-Q Heparin (Unfractionated) Resuscitation Status: CPR: Attempt Resuscitation Time spent 25 minutes Attending Statement I have seen and evaluated patient at bedside in addition to directly supervising care provided by resident physician. I agree with above documentation. Marvin Deleon DO Dec 31, 2016 15:21 David Salazar DO Dec 31, 2016 15:56
--- NOTE | 2016-12-31 16:17 | DRSVH ---
PROCEDURE: X-RAY CHEST ONE VIEW, PORTABLE ([id number]) INDICATIONS: For new leads placed TECHNIQUE: One view of the chest was acquired. COMPARISON: [facility], CR, XR CHEST 1VW (PORTABLE), 12/26/2016, 18:46. FINDINGS: Surgical changes and devices: Dual chamber left chest AICD has been placed in expected position. Lungs and pleura: No pleural effusions or pneumothorax. Mid/basilar patchy air space opacities are present. Mediastinum: Mediastinal contours appear normal. Heart size is enlarged. Bones and chest wall: No suspicious bony lesions. Overlying soft tissues appear unremarkable. IMPRESSION: 1. Left chest AICD. 2. Mid/basilar airspace opacity suspicious for aspiration or pneumonia. No pneumothorax is appreciat ed. Dictated by: Gautam Rodriguez [facility] Interpreted: Virginia Rios MD on 12/31/2016 at 15:42 Approved by: Virginia Rios M.D. on 12/31/2016 at 16:15
--- NOTE | 2016-12-31 17:00 | NUR ---
TRANSFER NOTE TRANSFERED TO [facility], REPORT GIVEN
--- NOTE | 2016-12-31 17:17 | NUR ---
Pacermaker/ICD placed in terrazzo laborer this afternoon, from recovery in [facility] to [facility][id number] at 1700. Paced rhythm on tele. VSS. Awake and conversing, speech slightly slurred, noted to have been given Versed and Fentanyl in terrazzo laborer. Left chest dressing with scant sero-sang shadow drainage, arm in sling. Denies pain.
--- NOTE | 2016-12-31 19:34 | DI95 ---
[place] [id number] INTERVENTIONAL CARDIAC CATHETERIZATION PATIENT: KAROLYN LOMBARDO : 1940 MR#: [id number] ADMIT: 12/27/2016 JOB ID: [id number] DATE OF SERVICE: 12/31/2016 PROCEDURE: Dual-chamber implantable cardioverter-defibrillator implant, conscious sedation, fluoroscopy. INDICATION: Ischemic cardiomyopathy, severe left ventricular systolic dysfunction, ejection fraction less than 30%, congestive heart failure, syncope. DEVICE: The defibrillator is a [employer], model CD 2411-36Q, serial #[id number]. The high-voltage lead is a [employer], model 7122Q-65, serial #[id number]. The atrial lead is a [employer], model 2088 TC/52, serial #[id number]. COMPLICATIONS: None. BLOOD LOSS: 10 cc. DESCRIPTION: The patient was brought to the cardiac catheterization lab as an inpatient in fasting condition. He received antimicrobial prophylaxis with vancomycin. The chest was prepped and draped in sterile fashion. He received conscious sedation per protocol. The left infraclavicular area was infiltrated with mixed 1% lidocaine and 0.5% Marcaine as local anesthetic. Using the Seldinger technique with micropuncture needles, the extra thoracic subclavian vein was punctured with two separate sticks and guidewires were inserted. The pacer pocket was then created with sharp and blunt dissection and electrocautery. The guidewires were tunneled into the pocket. A vancomycin-soaked sponge was placed in the pocket. A 7-Zambian sheath and 6-Zambian sheath were placed over guidewires and the wires and introducers were removed. With fluoroscopic monitoring, the ventricular lead was inserted and manipulated to the RV apex where stable positioning was obtained. The active fixation pin was advanced. R-wave sensing was 11.7 mV. Lead impedance 480 ohms. Capture threshold 0.5 V at a pulse width 0.5 msec. There was no diaphragmatic stimulation with 10 V pacing. The atrial sheath was inserted and manipulated over a J-wire. On several attempts, the initial sensing and capture thresholds were suboptimal. A longer J-wire was then employed and, again, required several attempts to find adequate thresholds. Ultimately, good thresholds were obtained. P-wave amplitude was 2.6 mV. Lead impedance was 390 ohms, capture threshold was 1.25 V with a pulse width of 0.5 msec. There was no diaphragmatic stimulation with 10 V pacing. Both leads were then secured with 0 Ethibond over the plastic sleeves. The position and stability was confirmed fluoroscopically and with threshold testing. The sponge was removed from the pocket and the pocket was flushed with a vancomycin solution. The leads were connected to the defibrillator. This was placed in the pocket and secured with 0 Ethibond. The subcutaneous tissues were then closed with 3-0 Polysorb and the subcuticular tissues were closed with 2-0 Polysorb. The wound was covered with Steri-Strips, and a Bioclusive dressing. The patient tolerated the procedure without difficulty and was taken to the [facility]. Follow-up x-rays, device interrogation, and EKGs will be obtained.
[2016-12-31] MEDS: Nystatin 100,000 Unit/Gm 15 Gm Powder TOPICAL PRN (20:32)
[2017-01-01] VITALS (8 sets, daily range): BP systolic 129–161; BP diastolic 73–84; PULSE 18–70; RESP 18–20; O2SAT 60–100
[2017-01-01] MEDS ORDERED: Vancomycin Inj 1,000 MG in IV Premix 1 EACH IV ONE
--- NOTE | 2017-01-01 01:39 | NUR ---
Neuro/CT Did safety check w/ day RN at start of shift, who stated pt came back from [facility] rather groggy and w/ slight slurred speech. With baseline safety check and first assessment pt was up and talking to someone on phone, slightly mumbled and appeared sleepy but alert and conversing without difficulty. Vitals stable and pt answering questions/following commands w/out difficulty. Per day RN and documentation pt has had intermittent confusion/forgetfulness as well but at that time was oriented. Pt fell asleep soon after and was placed on AUDIOMETRIST and 2L NC as he appeared to have occasional periods of apnea. With next full assessment around 0, pt was very groggy and difficult to wake, confused and needed reorienting to where he was. Pt had left facial droop and speech very slurred and at times difficult to understand. home demonstrator Gala came to assess as well, additionally noted pinpoint pupils. Pt had equal glove factory sewer and moved extremities equally, following commands though falling asleep mid answers. After some time pt able to wake more and was reoriented. MD Boyce notified and came to assess pt, also stated he was aware of intermittent confusion. Stat head CT ordered, results called to charge aide from imaging, and conclusion from prelim report was read to night MD by this nurse, no hemorrhage, prelim report in chart. Neuro checks ordered and to notify MD of any more changes. No further orders at this time. RR and all vitals stable. Ongoing care. Addendum: 01/01/17 at 0221 by BELEN KRAUSE RN Pt alert throughout CT, conversive and joking w/ staff. updated on first neuro check after CT, no changes from before, still w/ left facial droop, slurred speech, and pinpoint pupils. Addendum: 01/01/17 at 0604 by BELEN KRAUSE RN Pt increasingly more alert w/ latest neuro checks, waking easily if asleep and voicing needs appropriately. Pt oriented x3 last neuro check. Still left facial droop, speech improved. SERRANO equally. Pt up to BSC this morning, unsteady gait while trying to avoid using left arm.
[2017-01-01] MEDS: Isosorbide Mononitrate 60 mg ER24 Tablet PO SCH (07:53)
[2017-01-01] MEDS: Insulin LISPRO 300 Unit/3 mL Inj SUBQ SCH ×4 (07:56→20:53)
[2017-01-01] MEDS: Sodium Chloride LOK Flush 10 mL Syringe IVFLUSH SCH ×3 (07:58→20:54)
--- NOTE | 2017-01-01 08:50 | DRSVH ---
PROCEDURE: CT BRAIN WITHOUT CONTRAST ([id number]) INDICATIONS: Left facial droop, slurred speech TECHNIQUE: Noncontrast 4.5 mm thick angled axial sections acquired from the foramen magnum to the vertex, with c oronal reformats. COMPARISON: [facility], CT, CT BRAIN WO CON, 12/27/2016, 17:28. FINDINGS: Image quality: Excellent. CSF spaces: Basal cisterns are patent. No extra-axial fluid collections. The ventricles are symmet lobo in shape. Brain: No intracranial bleeds or masses. There is cerebral volume loss for age, with resultant vent ricular and sulcal prominence. There are periventricular and deep white matter chronic small vessel ischemic changes. Old bilateral basal ganglia lacunar infarcts are stable compared to prior examinat ion. There is intracranial internal carotid artery and vertebral artery atherosclerosis. Skull and face: Calvarium and visualized facial bones appear intact, without suspicious lesions. Sinuses: Visualized sinuses and mastoids are clear. IMPRESSION: No acute intracranial disease process. Dictated by: Gwendolyn Pena MD, PhD on 01/01/2017 at 8:44 Approved by: Gwendolyn Pena MD, PhD on 01/01/2017 at 8:48
--- NOTE | 2017-01-01 10:07 | PROG NOTE ---
[address] [address] PROGRESS NOTE PATIENT: KAROLYN LOMBARDO : 1940 MR#: [id number] ADMIT: 12/27/2016 JOB ID: [id number] DATE: 01/01/2017 CHIEF COMPLAINT: Syncope and presyncopal episodes. SUBJECTIVE: The patient is a pleasant 76-year-old man with a history of ischemic coronary disease with previous interventions. Prior to this admission, he had syncopal and presyncopal episodes and had a fall and sustained superficial head injuries. A recent echocardiogram showed an LVEF of 20%-25% with global hypokinesis. The patient is certainly at risk for ventricular tachycardia which may cause syncope. Implantation of a defibrillator was recommended and he agreed to that and that was done yesterday. The procedure was accomplished without incident and this morning he is sitting up in the bedside chair having breakfast and has no specific complaints related to the device. The device pocket is not too tender and he has not had recurrent near-syncope. Nursing notes made during the evening and the night notice slightly slurred speech and then after sleeping in the late evening he was less well oriented and left facial droop with slurred speech was noted. OBJECTIVE: Vital signs this morning showed BP 161/84, pulse regular at 60 and respirations unlabored at 18 per minute. He is afebrile and oximetry is 99% on room air. In speaking with him this morning, his speech may be slightly slurred, but he is not confused. He does have some difficulty in recalling details such as the template fitter's name that he sees at the office. A CT scan was obtained during the night and reported as showing no acute intracranial disease process. The overnight nurse reported this morning that he was increasingly more alert and that he woke easily and was oriented x3. As far as the device check goes, the chest x-ray shows good lead positions and no pneumothorax. Device evaluation showed excellent atrial and ventricular capture and sensing thresholds. No ventricular arrhythmias have been recorded or treated. The device site is closed and dry, there are Steri-Strips across the incision and there is no hematoma. A clean new dressing was applied. ASSESSMENT: With respect to heart rhythm and device implant, he is progressing well. No problems with the device itself or with the device site are present. The hospitalist physicians will be continuing to care for his noncardiac issues. PLAN: Routine device followup with wound check visit in 7-10 days and then repeat device clinic visit in six weeks. The patient may be discharged at the hospitalist discretion.
[2017-01-01] MEDS: 0.9% Sodium Chloride 1,000 ML IV SCH ×2 (10:17→18:03)
--- NOTE | 2017-01-01 10:55 | DRSVH ---
PROCEDURE: X-RAY CHEST ONE VIEW, PORTABLE ([id number]) INDICATIONS: For new lead placement TECHNIQUE: One view of the chest was acquired. COMPARISON: [facility], CR, XR CHEST 1VW (PORTABLE), 12/26/2016, 18:46. [facility], CR, XR CHEST 1VW (PORTABLE), 12/31/2016, 14:27. FINDINGS: Surgical changes and devices: Stable positioning of left chest AICD. Lungs and pleura: No pneumothorax. Interval decrease in mid/basilar air space opacities Mediastinum: Mediastinal contours appear normal. Heart size is enlarged. Bones and chest wall: No suspicious bony lesions. Overlying soft tissues appear unremarkable. IMPRESSION: 1. Stable position of left chest AICD. 2. Decreasing mid/basilar air space opacities suggesting resolving pneumonia versus pulmonary edema. Dictated by: Gautam Rodriguez [facility] Interpreted: Shiraz Howe MD on 01/01/2017 at 9:37 Approved by: Shiraz Howe M.D. on 01/01/2017 at 10:53
--- NOTE | 2017-01-01 13:26 | NUR ---
POST HOSPITAL FOLLOW UP: Called and rescheduled hospital follow up appointment 01/10/17 check in 1315 for 1330 appointment with Updated BUSINESS CONTINUITY CONSULTANT
--- NOTE | 2017-01-01 16:32 | NUR ---
Social Work: Readiness for Discharge/Multidisciplinary Rounds D: Pt discussed in multidisciplinary rounds; at this time pt is not yet medically stable for discharge. Plan reviewed with the team; at this time pt wishes to go home with Galilea FIGUEROA for RN, PT and LEAD FABRICATOR. Pt has been working with PT and able to ambulated 200 feet. There is considerable concern that the patient requires more rehab as he has limited use of his left arm due to ICD procedure. Pt is also demonstrating a degree of difficulty with sit to stand and requiring Mod Assist. PT also completed a balance test with the patient indicating he is a high falls risk. LEAD FABRICATOR met with the patient at bedside to explore discharge and safety planning. The patient has a history at [facility] and states that "I won't go back there" and states "it wasn't good for my bachelor lifestyle." LEAD FABRICATOR explored the safety issues addressed in rounds with the patient. He states that he is not concerned about falling and that he feels the help from home health several times a week would be the most helpful to him. Patient states that he does not want to explore SNF anymore and that he understands the risks of discharge home including the potential to fall and readmit to the hospital. employment service specialist has made the patient an appointment [facility] 01[facility]10[facility]17 check in 1315 for [address] Devon Husain: Pt who lives at home alone. P: Anticipate pt to discharge home via POV with Galilea FIGUEROA for RN, PT and LEAD FABRICATOR. LEAD FABRICATOR to continue to follow to assess for further discharge needs. NASEEM Verduzco
--- NOTE | 2017-01-01 18:02 | PCM.PNMED ---
Subjective Date of Service Jan 01, 2017 Subjective Subjective: Patient states he is feeling well, he does not remember his post surgery complications with facial droop. Physical therapy has seen the patient states that they feel that he is unsafe at home due to instability. Events Overnight: Patient developed right-sided facial droop overnight after ICD placement. A CT scan was obtained to rule out stroke. By morning all symptoms had resolved spontaneously. ROS: Denies fever/chills, nausea/vomiting, headache, weakness, abdominal pain, chest pain, shortness of breath, increased swelling in hands or feet. Exam Vital Signs Vital Sign - Last Date Time Temp Pulse Resp B/P Pulse Ox O2 Delivery O2 Flow Rate FiO2 01/01/17 15:17 70 Room Air 01/01/17 14:42 136/74 98 01/01/17 11:44 36.4 01/01/17 07:27 18 01/01/17 03:34 2.00 Intake and Output 12/31/16 12/31/16 01/01/17 Cumulative From/Thru 15:00 23:00 07:00 12/26/16 21:54 - 01/01/17 06:19 Intake Total 890 ml 956 ml 9989 ml Output Total 875 ml 1275 ml 9340 ml Balance 15 ml -319 ml 649 ml Intake Oral 120 ml 756 ml 5976 ml IV Total 770 ml 200 ml 4013 ml Output Urine Total 875 ml 1275 ml 9340 ml # Voids 6 7 27 # Bowel Movements 0 1 Exam General: No acute distress, well-developed, well-nourished Head: Normocephalic, 2 cm laceration over the left eyebrow. Ecchymosis of the left orbit. 2 cm lesion over the left mu-ism. External ears without defect. Eyes: Pupils equal, round, and reactive to light and accommodation. Anicteric sclerae, moist conjunctivae. Neck: Normal range of motion, no lymphadenopathy noted Cardiovascular: Regular rate and rhythm with no murmurs, rubs, or gallops appreciated Pulmonary: Clear to auscultation bilaterally with no crackles, wheezes, or rhonchi. Normal respiratory effort with no use of accessory muscles. Abdomen: Bowel tones present. Soft, nontender, nondistended. Extremities: No clubbing, cyanosis, 2+ edema of the lower legs bilaterally extending up to the knee. SCDs in place Skin: Normal temperature, turgor, and texture; no rash, ulcers, or subcutaneous nodules appreciated. Neurological: Cranial nerves grossly intact. Reflexes, coordination, and sensory function within normal limits. Normal muscle strength, tone, and bulk. Psychiatric: Normal mood and affect. Alert and oriented to person, place, and time IVs and Medications Medications Reviewed: Medications were reviewed in detail Lab and Diagnostics Result Diagram: 01/01/1723401/01/17234 Microbiology Blood culture 2 no growth to date . X-Rays, CTs and MRIs CT BRAIN WITHOUT CONTRAST IMPRESSION: No acute intracranial disease process. Dictated by: Gwendolyn Pena MD, PhD on 12/26/2016 at 18:13 X-RAY CHEST ONE VIEW, PORTABLE IMPRESSION: Subtle bibasilar opacities likely represent atelectasis, however finding is nonspecific and correlation with clinical and laboratory data is recommended to exclude early pneumonia. Dictated by: Gwendolyn Pena MD, PhD on 12/26/2016 at 19:10 . 12-lead ECG EKG: Sinus bradycardia, heart rate 52, normal axis, low voltage throughout precordial leads, prolonged NV interval at 220 ms and QTc at 500 ms, otherwise normal intervals, nonspecific T-wave inversion in lead V5, no pathological Q waves or acute ischemic changes such as ST elevation or depression. . Cardiac Echo Impressions Echocardiogram Interpretation Summary 1) Moderately dilated left ventricle wtih severely reduced function (EF 20-25%). 2) Severe global hypokinesis present. 3) Moderately dilated right ventricular with moderately reduced function. 4) Mild aortic stenosis present (calculated valve area 1.6cm2). 5) Pulmonary hypertension present, systolic pulmonary pressure estimated at 64 mmHg assuming a right atrial pressure of 15 mm Hg. 6) Compared to the Echo done 02/10/2016, LV function has dropped significantly from 45-50% to 20-25% on today's study. Reading Physician:05:24 PM . Additional Diagnostics DIAGNOSTIC CARDIAC CATHETERIZATION FINDINGS: LMCA: Note a 40% distal tapering. The left main coronary artery is a large moderately short vessel. There is very heavy aortic calcification near the ostium of the LMCA. There is an angiographically unimpressive intermediate distal tapering noted (QCA calculates 41% stenosis). LAD: Intact. The left anterior descending coronary artery is a large transapical vessel with moderate diffuse atherosclerotic plaquing including angiographically unimpressive 40% proximal plaque. There are no large diagonals present. LCX: Note 40% focal ostial narrowing; and occluded mid LCX with collaterals to three distal OMs coming from large OM-1. The circumflex is consistent with the prior description of occluded OM. There is a large first OM and an occlusion prior to the mid and distal circumflex which has at least three OM branches filled by collaterals. The continuation circumflex is a small vessel with 90% focal ostial narrowing noted. RCA: Dominant. Occluded at the ostium with heavy calcification throughout the RCA. There are antegrade bridging collaterals proximally. The distal branches of the RCA are filled only modestly by left to right collaterals primarily from the septal arcade. LHC: LVED 27 mmHg; and no systolic gradient on pullback across the aortic valve. Satish Zaragoza MD 12/29/16 1050 Assessment & Plan Jayson Vuong is a 76-year-old male who is a poor historian with a past medical history significant for orthostatic hypotension, diabetes mellitus type II, non- insulin using, CAD, hyperlipidemia, and left renal carcinoma status post nephrectomy who presented to [facility] emergency department via EMS due near syncope with ground level fall. Acute near syncopal episode with ground level fall, present on admission. Active. - Patient presented after a near syncopal episode with ground level fall. - Differential diagnosis includes: Orthostatic hypotension. Possible cardiac etiology including arrhythmia or valvular heart disease versus vasovagal versus neurogenic. - CT brain 2 negative, as above. - Echocardiogram shows EF of 20-25% as above, - Cardiology consulted, cath on 12/29 report as above - Continue telemetry. - Continue daily Physical therapy - Lasix 40 mg PO daily - Patient evaluated by physical therapy, who believes that the patient is unsafe to be at home and suggest that he be admitted to a fpc facility for rehabilitation, however the patient is not amenable to this option at this time. He states that he does not want to go to a fpc facility and would rather manage himself at home. There is no one that lives at home with him, although he states that he has very nice neighbors who are willing to help him on a regular basis. Home health will also be provided for the patient to assist with daily medications as well as physical therapy rehabilitation. Acute on chronic systolic congestive heart failure, present on admission, active - Echocardiogram completed shows ejection fraction of 20-25% with severe global hypokinesis other findings as above - Echocardiogram findings represent a significant change from echo completed on 02/10/2016 previous EF 45-50% - EKG revealed sinus bradycardia with first-degree AV block and significantly prolonged QTC of 500 ms. Avoid QTC prolonging medications - Cath Complete results as above - Continue to Hold midodrine - Lasix as above - Coreg as directed by cardiology - Isosorbide mononitrate as directed by cardiology - Cardiology to place AICD on 12/31 Penile inversion, present on admission, stable - Patient is able to urinate - May require future urology consult as an outpatient Chronic problems: Diabetes mellitus type II, insulin using, present on admission. Stable. - Hemoglobin A1c 6.5% in 01/2016. Repeat hemoglobin A1c 8.7% - Held oral anti-glycemic. - Heart healthy/carbohydrate consistent diet. - Low-dose correctional scale insulin for coverage. Hyperlipidemia, present on admission. Stable. - Continue atorvastatin 20 mg daily at bedtime CAD, present on admission. Stable. - Continue aspirin 325 mg daily Depression, present on admission. Stable. - Continue fluoxetine 20 mg daily GERD, present on admission. Stable. - Not medically treated. BPH, present on admission. Stable. - Previously on tamsulosin 0.4 mg daily at bedtime but per patient this medication has been stopped likely due to orthostasis. PRN antiemetics: Promethazine and Maalox. PRN bowel regimen: Senna and MiraLAX. PRN analgesics: Tylenol. Disposition: After another 24 hours of monitoring post AICD placement patient may be discharged home. VTE Prophylaxis: Sub-Q Heparin (Unfractionated) VTE Mechanical Devices: Intermittant Pneumatic CD Resuscitation Status: CPR: Attempt Resuscitation Time spent 30 minutes Attending Statement I have seen and evaluated patient at bedside in addition to directly supervising care provided by resident physician Dr Deleon on 01/01/2017. I agree with above documentation. Marvin Deleon DO Jan 01, 2017 18:02 David Salazar DO Jan 02, 2017 07:53
--- NOTE | 2017-01-01 18:04 | NUR ---
P: cardiac, Neuro, Nutrition I,E: Pt continues to be paced for the majority of time, underlying SR. VS stable. Pt is oriented to place time and self but he becomes somewhat confused at times and does get up out of bed. He is forgetful but seems to be able to re orient himself. He is co operative, conversive. His speech this morning was a little slurred, it is much better this afternoon. His left leg is a little weak per pt but "much better" he states. He is taking diet and fluids well, has required insulin per SS orders. His pacemaker site is CDI. His right groin site is also CDI with good pulses distally.
[2017-01-02 00:31] VITALS: BP 158/84; PULSE 69; RESP 16; O2SAT 99
[2017-01-02 03:07] LABS: Mean Corpuscular Hemoglobin 24.4 pg (27.0-35.0); Mean Corpuscular Volume 79.2 fL (81-100)
[2017-01-02 04:21] VITALS: BP 149/82; PULSE 67; RESP 16; O2SAT 96
[2017-01-02] MEDS: 0.9% Sodium Chloride 1,000 ML IV SCH (06:17)
--- NOTE | 2017-01-02 06:47 | NUR ---
Uneventful Night No acute neuro changes noted over night, pt A&O though has some intermittent confusion at times. SERRANO equally. Pt appeared to rest comfortably w/ stable vitals. No c/o pain. Pt moves well in bed, occasional incontinence.
[2017-01-02 08:25] VITALS: PULSE 60
[2017-01-02 08:41] VITALS: BP 148/88; PULSE 60; RESP 16; O2SAT 97
[2017-01-02] MEDS: Sodium Chloride LOK Flush 10 mL Syringe IVFLUSH SCH (08:58)
[2017-01-02] MEDS: Insulin LISPRO 300 Unit/3 mL Inj SUBQ SCH ×2 (09:01→12:44)
[2017-01-02 09:51] VITALS: PULSE 73
[2017-01-02] MEDS: Isosorbide Mononitrate 60 mg ER24 Tablet PO SCH (10:33)
--- NOTE | 2017-01-02 10:40 | NUR ---
Social Work: Readiness for Discharge/Multidisciplinary Rounds D: Pt discussed in multidisciplinary rounds; per resident provider conversation with the patient this morning, the patient is now amenable to Skilled rehab he just does not want to go to [facility]. SNF Order obtained. IRONER acknowledges order and met with the patient at bedside to provide SNF CHOICE LIST. Pt's preferences are for [facility] in [place] or [facility]. icu specialist will place referral and provide access. Per resident and attending providers, the patient is medically stable for discharge today. PPW on chart. PASSR- Provider signature required A: Pt who will require skilled rehab to continue to advance towards functional mobility improvement with the use of a walker and his restrictions after cardiac procedure. P: evolving; [facility] and [facility] are reviewing for possible admission. IRONER to update team once disposition is determined. NASEEM Verduzco
--- NOTE | 2017-01-02 11:38 | NUR ---
RETIREMENT TRANSFER : Gave access and faxed facesheet to [facility] and [facility] per GOVERNMENT RELATIONS ANALYST and MD orders. [facility] can accept patient today, MD paged with this information Updated GOVERNMENT RELATIONS ANALYST
[2017-01-02 12:08] VITALS: BP 146/66; PULSE 60; RESP 18; O2SAT 97
[2017-01-02] MEDS ORDERED: FURO40TA4 PO (12:20)
[2017-01-02] MEDS ORDERED: CARV3.122 PO (12:20)
[2017-01-02] MEDS ORDERED: ISOS60TA2 PO (12:20)
[2017-01-02] MEDS ORDERED: ATOR20TA65 PO (12:20)
[2017-01-02] MEDS ORDERED: LISI-571 PO (12:20)
--- NOTE | 2017-01-02 12:42 | PCM.DIMED ---
Marvin Deleon DO 12/29/16 1622: Discharge Instructions Date of Service Jan 02, 2017 Dates of Hospitalization Dec 27, 2016 at 00:40 Discharge Diagnosis Discharge Diagnosis Acute near syncopal episode with ground level fall Acute on chronic systolic congestive heart failure Recent upper respiratory tract infection Diabetes mellitus type II Hyperlipidemia CAD Depression GERD BPH Medication Instructions Additional med instructions We would like you to continue taking her home medications except for the following changes: Furosemide 40 mg daily Lisinopril 2.5 mg daily Carvedilol 6.25 mg twice a day with meals Isosorbide MN 60 mg daily Atorvastatin 20 mg daily Stop taking midodrine Test Results Test Results 3 CT scans of your head were completed here which showed minor changes related to previous ischemic episodes. 3 chest x-rays showed minor fluid accumulation in your lungs, this is likely due to congestive heart failure, and was progressively resolving Diet Discharge Diet: Heart Healthy Activity Discharge Activity: No restrictions Call your provider Call your provider for: Fever or Chills, Shortness of breath, Bleeding, Chest pain, Vomitting, Excessive diarrhea, Weakness (unilateral) Patient Instructions Patient Instructions We would like you to follow closely to the medication regimen as listed above. In order to help with this we will set up home health who can help you manage her medication regimen as well as assist you periodically at your home. Please be very careful when standing and allow appropriate time for accommodation before walking. Please avoid walking in the dark whenever possible. Please continue to care for pacemaker as instructed by cardiology including decreased movement of the left arm. Follow-up plan We would like you to follow-up with the [facility] residency clinic after discharge from the [facility] facility, and possibly get connected with a primary care doctor closer to [place]. However, until that can be arranged we would like to follow you closely in the residency clinic. We would also like you to be followed by cardiology, Dr. Perez and Dr. Holt both saw you here in the hospital and they would be great options for follow-up as an outpatient. Upon discharge from the hospital you will be transported to a [facility] facility which will ensure that you progress physically to the point at which you are able to return home safely. Once this is accomplished we would like you to be followed by home health who can to come by and see you 3-4 times per week to assist with management of medications as well as provide physical therapy services. Follow-up Provider: [facility] Residency Clinic Follow-up with PCP in: 1 week Provider: Channing Perez MD Follow-up in: 6 weeks David Salazar DO 01/03/17 0735: Discharge Instructions Attending's Statement Read and agree Marvin Deleon DO Dec 29, 2016 16:22 David Salazar DO Jan 03, 2017 07:35
--- NOTE | 2017-01-02 14:01 | NUR ---
Social Work: Discharge D: Pt is now agreeable to skilled rehab. BAGGAGE AND MAIL AGENT spoke with Evie Davidson at [facility]. They can accept the patient today with Dr. Olivares to follow. Resident provider notified. Discharge ppw completed and faxed to [facility]. BAGGAGE AND MAIL AGENT met with the patient at bedside to confirm discharge plan to [facility]. HE agrees with this plan and states that this is his preference over [facility]. A: Pt who will require continued rehab to improve towards functional mobility improvement. P: Pt to discharge to [facility] today with Dr. Olivares to follow. Transportation not yet confirmed. NASEEM Verduzco
--- NOTE | 2017-01-02 15:02 | NUR ---
CORRECTION TRANSFER : Faxed orders to [facility] and placed copy in the chart. [employer] is transporting at 1500 via wheelchair van. Updated BOX FEEDER
--- NOTE | 2017-01-02 15:44 | PCM.DC.MED ---
Discharge Summary Date of Service Jan 02, 2017 Dates of Hospitalization Date of Hospital Admission Dec 27, 2016 at 00:40 Date of Discharge: Jan 02, 2017 Providers: Admitting Physician: Cindy Beltran MD Primary Care Physician: Moody Wade MD Attending Physician: David Salazar DO Diagnosis at Time of Discharge Diagnosis at Time of Discharge Acute near syncopal episode with ground level fall Acute on chronic systolic congestive heart failure Recent upper respiratory tract infection Diabetes mellitus type II Hyperlipidemia CAD Depression GERD BPH Consultations Cardiology: Dr. Perez, Dr. Holt Procedures XRay, CTs & MRIs CT BRAIN WITHOUT CONTRAST IMPRESSION: No acute intracranial disease process. Dictated by: Gwendolyn Pena MD, PhD on 12/26/2016 at 18:13 X-RAY CHEST ONE VIEW, PORTABLE IMPRESSION: Subtle bibasilar opacities likely represent atelectasis, however finding is nonspecific and correlation with clinical and laboratory data is recommended to exclude early pneumonia. Dictated by: Gwendolyn Pena MD, PhD on 12/26/2016 at 19:10 . ECG 12 Lead EKG: Sinus bradycardia, heart rate 52, normal axis, low voltage throughout precordial leads, prolonged CT interval at 220 ms and QTc at 500 ms, otherwise normal intervals, nonspecific T-wave inversion in lead V5, no pathological Q waves or acute ischemic changes such as ST elevation or depression. . Cardiac Echo Impression Echocardiogram Interpretation Summary 1) Moderately dilated left ventricle wtih severely reduced function (EF 20-25%). 2) Severe global hypokinesis present. 3) Moderately dilated right ventricular with moderately reduced function. 4) Mild aortic stenosis present (calculated valve area 1.6cm2). 5) Pulmonary hypertension present, systolic pulmonary pressure estimated at 64 mmHg assuming a right atrial pressure of 15 mm Hg. 6) Compared to the Echo done 02/10/2016, LV function has dropped significantly from 45-50% to 20-25% on today's study. Reading Physician:05:24 PM . Other Diagnostics DIAGNOSTIC CARDIAC CATHETERIZATION FINDINGS: LMCA: Note a 40% distal tapering. The left main coronary artery is a large moderately short vessel. There is very heavy aortic calcification near the ostium of the LMCA. There is an angiographically unimpressive intermediate distal tapering noted (QCA calculates 41% stenosis). LAD: Intact. The left anterior descending coronary artery is a large transapical vessel with moderate diffuse atherosclerotic plaquing including angiographically unimpressive 40% proximal plaque. There are no large diagonals present. LCX: Note 40% focal ostial narrowing; and occluded mid LCX with collaterals to three distal OMs coming from large OM-1. The circumflex is consistent with the prior description of occluded OM. There is a large first OM and an occlusion prior to the mid and distal circumflex which has at least three OM branches filled by collaterals. The continuation circumflex is a small vessel with 90% focal ostial narrowing noted. RCA: Dominant. Occluded at the ostium with heavy calcification throughout the RCA. There are antegrade bridging collaterals proximally. The distal branches of the RCA are filled only modestly by left to right collaterals primarily from the septal arcade. LHC: LVED 27 mmHg; and no systolic gradient on pullback across the aortic valve. Satish Zaragoza MD 12/29/16 1050 Brief History Taken from the H&P completed by Dr. Walton: Jayson Vuong is a 76-year-old male who is a poor historian with a past medical history significant for orthostatic hypotension, diabetes mellitus type II, non- insulin using, CAD, hyperlipidemia, and left renal carcinoma status post nephrectomy who presented to [facility] emergency department via EMS due near syncope with ground level fall. The patient reports he got out of bed to head to the bathroom and felt like he was going to pass out. He then fell headfirst into a door and then to the ground. The patient denies loss of consciousness. The fall was unwitnessed. He has had this happen several times in the past that was evaluated and thought to be secondary to orthostatic hypotension. The patient has been seen by Dr. Larsen and placed on midodrine for orthostasis. He takes a full dose aspirin daily. The patient reports he recently had an URI that seems to be improving. He endorses mild productive cough of white sputum that is resolving. Due to recent URI he admits to poor PO intake and hydration. He denies headache, vision changes, sore throat, chest pain, palpitations, shortness of breath, abdominal pain, nausea, vomiting, fever , chills, dysuria, constipation or diarrhea. He does endorse dyspnea on exertion. He denies orthopnea or paroxysmal nocturnal dyspnea. He also endorses minor difficulty urinating due to "penis inversion." . Hospital Course Jayson Vuong is a 76-year-old male who is a poor historian with a past medical history significant for orthostatic hypotension, diabetes mellitus type II, non- insulin using, CAD, hyperlipidemia, and left renal carcinoma status post nephrectomy who presented to [facility] emergency department via EMS due near syncope with ground level fall. After ICD placement on 12/31 patient began showing improvement medically to the point at which he is able to be discharged. The patient was evaluated by physical therapy, who believes that the patient is unsafe to be at home and suggest that he be admitted to a shelter facility for rehabilitation. I discussed with him my concerns this morning and he is amenable to discharging to a shelter facility at this time. There is no one that lives at home with him, although he states that he has very nice neighbors who are willing to help him on a regular basis. After discharge from shelter facility Home health is recommended to assist with daily medications, CHF management, as well as physical therapy rehabilitation. Acute near syncopal episode with ground level fall, present on admission. Active. - Patient presented after a near syncopal episode with ground level fall. - Differential diagnosis includes: Orthostatic hypotension. Possible cardiac etiology including arrhythmia or valvular heart disease versus vasovagal versus neurogenic. - CT brain 3 negative, as above. - Echocardiogram shows EF of 20-25% as above, - Cardiology consulted, cath on 12/29 report as above - Continue daily Physical therapy - Continue Lasix 40 mg PO daily Acute on chronic systolic congestive heart failure, present on admission, active - Echocardiogram completed shows ejection fraction of 20-25% with severe global hypokinesis other findings as above - Echocardiogram findings represent a significant change from echo completed on 02/10/2016 previous EF 45-50% - EKG revealed sinus bradycardia with first-degree AV block and significantly prolonged QTC of 500 ms. Avoid QTC prolonging medications - Cath Complete, results as above - Continue to Hold midodrine - Lasix as above - Coreg as directed by cardiology - Isosorbide mononitrate as directed by cardiology - Continue Lisinopril - Cardiology to place AICD on 12/31 Penile inversion, present on admission, stable - Patient is able to urinate - May require future urology consult as an outpatient Chronic problems: Diabetes mellitus type II, insulin using, present on admission. Stable. - Hemoglobin A1c 6.5% in 01/2016. Repeat hemoglobin A1c 8.7% - Held oral anti-glycemic. - Heart healthy/carbohydrate consistent diet. - Low-dose correctional scale insulin for coverage. Hyperlipidemia, present on admission. Stable. - Continue atorvastatin 20 mg daily at bedtime CAD, present on admission. Stable. - Continue aspirin 325 mg daily Depression, present on admission. Stable. - Continue fluoxetine 20 mg daily GERD, present on admission. Stable. - Not medically treated. BPH, present on admission. Stable. - Previously on tamsulosin 0.4 mg daily at bedtime but per patient this medication has been stopped likely due to orthostasis. Exam Vital Signs (Last) Date Time Temp Pulse Resp B/P Pulse Ox O2 Delivery O2 Flow Rate FiO2 01/02/17 12:08 36.8 60 18 146/66 97 Room Air 01/01/17 03:34 2.00 Exam General: No acute distress, well-developed, well-nourished Head: Normocephalic, 2 cm laceration over the left eyebrow. Ecchymosis of the left orbit. 2 cm lesion over the left yazidi. External ears without defect. Eyes: Pupils equal, round, and reactive to light and accommodation. Anicteric sclerae, moist conjunctivae. Neck: Normal range of motion, no lymphadenopathy noted Cardiovascular: Regular rate and rhythm with no murmurs, rubs, or gallops appreciated Pulmonary: Clear to auscultation bilaterally with no crackles, wheezes, or rhonchi. Normal respiratory effort with no use of accessory muscles. Abdomen: Bowel tones present. Soft, nontender, nondistended. Extremities: No clubbing, cyanosis, 1+ edema of the lower legs bilaterally extending up to the knee. Skin: Normal temperature, turgor, and texture; no rash, ulcers, or subcutaneous nodules appreciated. Neurological: Cranial nerves grossly intact. Reflexes, coordination, and sensory function within normal limits. Normal muscle strength, tone, and bulk. Psychiatric: Normal mood and affect. Alert and oriented to person, place, and time Test 12/26/16 20:40 12/27/16 00:40 12/27/16 03:03 12/27/16 23:35 Troponin T < 0.010ug/L (0.0-0.011) Procalcitonin 0.06ng/mL (0.00-0.08) Reticulocyte Count,Calculated 1.0% (0.6-2.6) Iron Level 36ug/dL (35-150) Total Iron Binding Capacity 282ug/dL (250-450) Percent Iron Saturation 13%sat (15-50) Unsaturated Iron Binding 245.6ug/dL Thyroid Stimulating Hormone (TSH) 6.000uIU/mL (0.450-4.500) Free Thyroxine 1.13ng/dL (0.82-1.77) Hemoglobin A1c 8.7% (4.8-5.6) Urine Color Dark yellow (YELLOW) Urine Appearance Clear (CLEAR,HAZY) Urine pH 5.5 (5.0-8.0) Urine Specific [place] 1.035 (1.003-1.035) Urine Protein 30mg/dL (NEG,TRACE) Urine Glucose (UA) Negativemg/dL (NEGATIVE) Urine Ketones Negativemg/dL (NEGATIVE) Urine Occult Blood Negative (NEGATIVE) Urine Nitrite Negative (NEGATIVE) Urine Bilirubin Negative (NEGATIVE) Urine Urobilinogen Normalmg/dL (NORMAL) Urine Leukocyte Esterase Negative (NEGATIVE) Urine RBC 0-2/hpf (0-2) Urine WBC 0-5/hpf (0-5) Urine Epithelial Cells Occasional/hpf (NONE-MOD) Urine Crystals None seen (NONE SEEN) Urine Bacteria Few/hpf (NONE-FEW) Urine Hyaline Casts >20/lpf (NONE) Urine Granular Casts Occasional (NONE SEEN) Urine Waxy Casts None seen (NONE SEEN) Urine Red Blood Cell Casts None seen (NONE SEEN) Urine White Blood Cell Casts None seen (NONE SEEN) Urine Mucus None seen (None Seen) Urine Trichomonas None seen (NONE SEEN) Urine Yeast None (NONE SEEN) Urinalysis Comment None Urine Culture Reflexed Not indicated Test 12/31/16 03:00 01/01/17 02:35 01/02/17 02:25 Neutrophils (%) (Auto) 74.9% (40-74) Lymphocytes (%) (Auto) 14.7% (14-46) Monocytes (%) (Auto) 7.8% (4-12) Eosinophils (%) (Auto) 2.2% (0-5) Basophils (%) (Auto) 0.2% (0-3) Prothrombin Time 12.5sec (8.1-12.5) Prothromb Time International Ratio 1.16ratio Phosphorus Level 3.2mg/dL (2.5-4.9) Magnesium Level 1.6mg/dL (1.6-2.6) Total Bilirubin 0.7mg/dL (0.0-1.2) Aspartate Amino Transf (AST/SGOT) 29U/L (0-50) Alanine Aminotransferase (ALT/SGPT) 17U/L (0-44) Alkaline Phosphatase 114U/L (25-160) Total Protein 6.0g/dL (6.4-8.4) Albumin 2.9g/dL (3.4-5.0) White Blood Count 5.2th/mm3 (3.8-10.1) Red Blood Count 5.00mil/mm3 (4.40-5.80) Hemoglobin 12.2g/dL (13.8-17.2) Hematocrit 39.6% (41.0-50.0) Mean Corpuscular Volume 79.2fL (81-100) Mean Corpuscular Hemoglobin 24.4pg (27.0-35.0) Mean Corpuscular Hemoglobin Concent 30.8% (32.0-37.0) Red Cell Distribution Width 18.7% (12.3-15.4) Platelet Count 106bil/L (150-400) Sodium Level 136mEq/L (134-144) Potassium Level 4.5mEq/L (3.5-5.2) Chloride Level 99mEq/L (97-108) Carbon Dioxide Level 22mmol/L (18-29) Blood Urea Nitrogen 27mg/dL (8-27) Creatinine 1.28mg/dL (0.76-1.27) Estimat Glomerular Filtration Rate 58mL/min (>59) Glucose Level 197mg/dL (60-99) Calcium Level 8.4mg/dL (8.5-10.1) Microbiology Results Blood culture 2 no growth to date . Discharge Medications Discharge Medications ([Clucosamine-Chondro]) 2 TAB ORAL DAILY (Reported) Aspirin (Aspirin) 325 Mg Tablet 325 MG PO DAILY (Reported) Atorvastatin Calcium (Atorvastatin Calcium) 20 Mg Tablet 20 MG PO HS Prescribed by: MARVIN MENDEZ DO Carvedilol (Carvedilol) 3.125 Mg Tablet 6.25 MG PO BIDWM Prescribed by: MARVIN MENDEZ DO Fludrocortisone Acetate (Fludrocortisone Acetate) 0.1 Mg Tablet 0.1 MG PO DAILY Prescribed by: YOLANDA ARRIOLA MD Fluoxetine (Fluoxetine) 20 Mg Capsule 20 MG PO DAILY (Reported) morning Furosemide (Furosemide) 40 Mg Tablet 40 MG PO DAILY Prescribed by: MARVIN MENDEZ DO Glipizide ER (Glipizide ER) 5 Mg Tab.er.24 5 MG PO DAILY (Reported) take with breakfast Insulin Glargine (Lantus U100 Solostar Insulin Pen) 100 Unit/1 Ml Insuln.pen 70 UNIT SUBQ HS (Reported) Insulin Human Lispro (HumaLOG U100 Insulin Vial) 100 Unit/Ml Unit 0 UNIT SUBQ WMHS Check blood sugars before meals and at bedtime. Use correction factor only before meals. Blood Sugar Lispro Correction: <151, 0 units; 151-175, 1 unit; 176-200, 2 units; 201-225, 3 units; 226-250, 4 units; 251-275, 5 units; 276-300 , 6 units; 301-325, 7 units; 326-350, 8 units; 351-375, 9 units; 376-400, 10 units; >400, 12 units. Prescribed by: YOLANDA ARRIOLA MD Isosorbide MN ER (Isosorbide MN ER) 60 Mg Tab.er.24h 60 MG PO 0730 Prescribed by: MARVIN MENDEZ DO Lisinopril (Lisinopril) 5 Mg Tablet 2.5 MG PO DAILY Prescribed by: MARVIN MENDEZ DO Pantoprazole DR (Pantoprazole DR) 40 Mg Tablet.dr 40 MG PO DAILYAC Prescribed by: YOLANDA ARRIOLA MD Simvastatin (Simvastatin) 40 Mg Tablet 40 MG PO HS (Reported) Tamsulosin (Flomax) 0.4 Mg Capsule 0.4 MG PO HS Prescribed by: YOLANDA ARRIOLA MD As needed ([Acetaminophen]) 325 MG TABLET 650 MG PO Q6H PRN PRN For Mild Pain or Fever Prescribed by: YOLANDA ARRIOLA MD Polyethylene Glycol 3350 (Miralax) 17 Gm Powd.pack 17 GM PO DAILY PRN PRN For Constipation Prescribed by: YOLANDA ARRIOLA MD Additional med instructions We would like you to continue taking her home medications except for the following changes: Furosemide 40 mg daily Lisinopril 2.5 mg daily Carvedilol 6.25 mg twice a day with meals Isosorbide MN 60 mg daily Atorvastatin 20 mg daily Stop taking midodrine Followup Plan Disposition: Home Follow-up plan We would like you to follow-up with the [facility] residency clinic after discharge from the shelter facility, and possibly get connected with a primary care doctor closer to [place]. However, until that can be arranged we would like to follow you closely in the residency clinic. We would also like you to be followed by cardiology, Dr. Perez and Dr. Holt both saw you here in the hospital and they would be great options for follow-up as an outpatient. Upon discharge from the hospital you will be transported to a shelter facility which will ensure that you progress physically to the point at which you are able to return home safely. Once this is accomplished we would like you to be followed by home health who can to come by and see you 3-4 times per week to assist with management of medications as well as provide physical therapy services. Discharge Diet: Heart Healthy Discharge Activity: No restrictions Patient Instructions We would like you to follow closely to the medication regimen as listed above. In order to help with this we will set up home health who can help you manage her medication regimen as well as assist you periodically at your home. Please be very careful when standing and allow appropriate time for accommodation before walking. Please avoid walking in the dark whenever possible. Please continue to care for pacemaker as instructed by cardiology including decreased movement of the left arm. Follow-up Provider: [facility] Residency Clinic Follow-up with PCP in: 1 week Provider: Channing Perez MD Follow-up in: 6 weeks Time spent Greater than 35 minutes spent on documentation and coordination of discharge. Attending Statement I have seen and evaluated patient at bedside in addition to directly supervising care provided by resident physician Dr Mendez on 01/02/2017. I agree with above documentation Marvin Mendez DO Jan 02, 2017 15:44 David Salazar DO Jan 03, 2017 07:40
--- NOTE | 2017-01-02 15:44 | NUR ---
Discharge 0945 - Discussed patient care with Dr. Lynn, Dr. Salazar, and the rest of the multidisciplinary care team during morning rounds. It was said he would be discharged today to a [facility]. 1430 - Noted he had active discharge orders. Called his neighbor Sydnee (customer contact sales associate) and notified her that he would be discharging this afternoon to [facility]. She said she would bring him some clothes. 1439 - Called report to Nurse Evie from [facility]. 1530 - He discharged at this time. Telemetry taken off, two IVs discontinued intact, and he took most of his belongings with him. Constanza from the transport [employer] came to pick him up. He thanked staff for their care. Forgot to give him his wallet from the ED safe. Constanza came back at 1540 with the patient's verbal permission over the phone that was heard by the Shell Grader. She took the sealed bag.
== END 2017-01-02 15:31 | DRG 223 ==
LOC: EDBD 17:03 → EDUNIT# 17:03 → SED 17:03 → PCC 12-27 00:40 → OBSVTOIN 12-27 00:40 → INTOOBSV 12-27 00:40 → PCC 12-27 01:23
PROVIDERS: ADMIT Specialist; ATTEND Specialist
PROC: 4A023N7 Measurement of Cardiac Sampling and Pressure, Left Heart, Percutaneous Approach (ICD-10-PCS; principal; 2016-12-29)
PROC: B2111ZZ Fluoroscopy of Multiple Coronary Arteries using Low Osmolar Contrast (ICD-10-PCS; 2016-12-29)
PROC: 0JH608Z Insertion of Defibrillator Generator into Chest Subcutaneous Tissue and Fascia, Open Approach (ICD-10-PCS; 2016-12-31)
PROC: 02H63KZ Insertion of Defibrillator Lead into Right Atrium, Percutaneous Approach (ICD-10-PCS; 2016-12-31)
DX: I50.23 Acute on chronic systolic (congestive) heart failure (principal); J98.11 Atelectasis; I13.0 Hypertensive heart and chronic kidney disease with heart failure and stage 1 through stage 4 chronic kidney disease, or unspecified chronic kidney disease; I25.5 Ischemic cardiomyopathy; Z79.4 Long term (current) use of insulin; E78.5 Hyperlipidemia, unspecified; I25.10 Atherosclerotic heart disease of native coronary artery without angina pectoris; Z85.528 Personal history of other malignant neoplasm of kidney; Z90.5 Acquired absence of kidney; Z79.82 Long term (current) use of aspirin; Z87.891 Personal history of nicotine dependence; F32.9 Major depressive disorder, single episode, unspecified; J06.9 Acute upper respiratory infection, unspecified; E03.9 Hypothyroidism, unspecified; E11.22 Type 2 diabetes mellitus with diabetic chronic kidney disease; N18.9 Chronic kidney disease, unspecified; R55 Syncope and collapse; N48.89 Other specified disorders of penis

== ENCOUNTER 2017-01-07 13:03 | Observation (INO) | payer MEDICARE ==
[~2017-01-07] VITALS: Ht 188 cm; Wt 95.4 kg
[~2017-01-07 13:03] MED LIST changes: +ATOR20TA65 PO; +CARV3.122 PO; -CARV6.252 PO; +FURO40TA4 PO; +ISOS60TA2 PO; +LISI-571 PO; -MIDO5TAB PO
--- NOTE | 2017-01-07 13:14 | ED.REPORT ---
HPI-Neurologic Deficit Date of Service Jan 07, 2017 ED Provider: Daina Cornejo Patient is a 76 year old male with a hx of CVA, CHF, HTN, and DM who presents to the ED via EMS from [facility] to be evaluated for concerning neurologic symptoms. Per shelter report, over the last 2 days the patients has developed increasing left foot drop and drag, ataxia, weakness, fatigue, and L sided neglect. He has also had decreased ability to follow commands, communication ability, and slowing speech. Upon presentation, he falls asleep mid-sentence and is difficult to obtain a history from. He denies abdominal pain , dysuria, fevers, chills, or any other symptoms. Patient was admitted on 12/27 after having several near syncopal episodes. He had an AICD placed at this time. Patient is FULL CODE. Nursing Notes Stated Complaint: LEFT SIDED WEAKNESS Nursing Notes Reviewed: Yes Allergies: Coded Allergies: No Known Allergies (Verified , 01/07/17) Scheduled Aspirin (Aspirin) 325 Mg Tablet 325 MG PO DAILY Atorvastatin Calcium (Atorvastatin Calcium) 20 Mg Tablet 20 MG PO HS Carvedilol (Carvedilol) 6.25 Mg Tablet 6.25 MG PO BID Fludrocortisone Acetate (Fludrocortisone Acetate) 0.1 Mg Tablet 0.1 MG PO DAILY Fluoxetine (Fluoxetine) 20 Mg Capsule 20 MG PO DAILY morning Furosemide (Furosemide) 40 Mg Tablet 40 MG PO DAILY Glipizide (Glipizide) 5 Mg Tablet 5 MG PO DAILY Gluc HCl/Csa/Aubrie Hy/Hyalur AC (Glucosamine Chondroitin Cap) 1 Each Capsule 2 EACH PO DAILY Insulin Glargine (Lantus U100 Solostar Insulin Pen) 100 Unit/1 Ml Insuln.pen 50 UNIT SUBQ HS Isosorbide MN ER (Isosorbide MN ER) 60 Mg Tab.er.24h 60 MG PO 0730 Lisinopril (Lisinopril) 2.5 Mg Tablet 2.5 MG PO DAILY Pantoprazole DR (Pantoprazole DR) 40 Mg Tablet.dr 40 MG PO DAILYAC Tamsulosin (Flomax) 0.4 Mg Capsule 0.4 MG PO HS Zinc Oxide (Zinc Oxide) 57 Gm Oint...g. 1 APPLIC TP TID Scheduled PRN Acetaminophen (Acetaminophen) 325 Mg Capsule 650 MG PO q4 hours PRN PRN For Pain Bisacodyl (Dulcolax Rectal) 10 Mg Supp.rect 10 MG RC DAILY PRN PRN For Constipation Insulin Lispro (HumaLOG U100 Insulin Pen) 100 Unit/1 Ml Insuln.pen 0-12 UNIT SUBQ ACHS PRN PRN sliding scale Blood Sugar Lispro Correction <151 0 units 151-175 1 unit 176-200 2 units 201-225 3 units 226-250 4 units 251-275 5 units 276-300 6 units 301-325 7 units 326-350 8 units 351-375 9 units 376-400 10 units >400 12 units Check blood sugars before meals and at bedtime. Use correction factor only before meals. Magnesium Hydroxide (Milk of Magnesia) 400 Mg/5 Ml Oral.susp 30 ML PO DAILY PRN PRN For Constipation Na Phos,M-B/Na Phos,Di-Ba (Fleet Enema) 133 Ml Enema 133 ML RC DAILY PRN PRN For Constipation Polyethylene Glycol 3350 (Miralax) 17 Gm Powd.pack 17 GM PO DAILY PRN PRN For Constipation General Time Seen by Provider: 13:13 Transferred From: [facility] Chief Complaint Mental status change Hx Obtained From: Patient, Retail Pharmacy Manager Arrived By: Ambulance Sudden in Onset?: No Onset Occurred: 2 days ago Symptom Duration: Since onset Progression Since Onset: Gradually worsening Immunizations: Unknown Recent Healthcare: Recent doctor visit, Recent hospitalization, Previous surgery Risk Factors NIH Stroke Scale Level of Consciousness: Arouse by repeat stim (2) Open/Close Eyes/Hand Debt Collector: Performs both tasks (0) Horizontal EO Movements: None (0) Right Arm Motor Drift (10s): No drift 10 sec (0) Left Arm Motor Drift (10s): No drift 10 sec (0) Right Leg Motor Drift (5s): No drift 5 sec (0) Left Leg Motor Drift (5s): No drift 5 sec (0) Limb Ataxia FNF/Heel-Alex: No ataxia (0) Time NIHSS Performed: 13:38 Date NIHSS Performed: Jan 07, 2017 Past Medical History Past Medical History Notes: AICD placed for ejection fraction of 20-25% Past Medical History Kidney cancer s/p left nephrectomy IDDM CVA Hypertension Hyperlipidemia OH Depression Past Surgical History Left nephrectomy Cataract surgery angioplasty L arm plate Reports: Pacemaker insertion (AICD) Smoking History Former Smoker Social History Alcohol Use: In recovery Drug Use: Denies drug use Ambulatory Status Independent Review of Systems Constitutional: Reports: Fatigue, Denies: Chills, Fever GI: Denies: Abdominal pain Neurologic: Reports: Problem walking, Slurred speech, Weakness Psychiatric: Reports: Change mental status Complete sys rev & neg: except as marked. Male: Denies Dysuria Physical Exam Initial Vital Signs Vital Signs (First) Date Time Temp Pulse Resp B/P Pulse Ox O2 Delivery O2 Flow Rate FiO2 01/07/17 13:23 36.2 60 20 112/53 100 Room Air Initial VS: Reviewed, Vital signs abnormal Neck: Full range of motion Skin: Warm, Dry Alertness: Positive: Sleeping but arousable Head / Eyes: Atraumatic, Normocephalic Respiratory / Chest: Atraumatic, Breath sounds NL, Breath sounds = bilat, No respiratory distress new AICD in L upper chest, healing nicely Cardiovascular: Heart rate NL, Regular rhythm, Heart sounds NL Speech: Positive: Slurred Patient is sleepy. Speech is slurred but he is able to answer questions and even make some jokes. Falls asleep mid-sentence weaker and clumsier on L side but weakness is mostly global Abdomen: Atraumatic, Soft, Non-tender Lower Extremity / Pelvis / MS: No edema (No signifcant ) Interpretation & Diagnostics Lab Results Interpretation Result Diagram: 01/07/17 1445 01/07/17 1445 Test 01/07/17 14:45 White Blood Count 4.9th/mm3 (3.8-10.1) Red Blood Count 4.35mil/mm3 (4.40-5.80) Hemoglobin 10.8g/dL (13.8-17.2) Hematocrit 35.2% (41.0-50.0) Mean Corpuscular Volume 80.9fL (81-100) Mean Corpuscular Hemoglobin 24.8pg (27.0-35.0) Mean Corpuscular Hemoglobin Concent 30.7% (32.0-37.0) Red Cell Distribution Width 18.7% (12.3-15.4) Platelet Count 105bil/L (150-400) Neutrophils (%) (Auto) 74.5% (40-74) Lymphocytes (%) (Auto) 14.4% (14-46) Monocytes (%) (Auto) 9.1% (4-12) Eosinophils (%) (Auto) 1.4% (0-5) Basophils (%) (Auto) 0.2% (0-3) Sodium Level 139mEq/L (134-144) Potassium Level 3.9mEq/L (3.5-5.2) Chloride Level 102mEq/L (97-108) Carbon Dioxide Level 23mmol/L (18-29) Blood Urea Nitrogen 24mg/dL (8-27) Creatinine 1.30mg/dL (0.76-1.27) Estimat Glomerular Filtration Rate 57mL/min (>59) Glucose Level 49mg/dL (60-99) Calcium Level 8.1mg/dL (8.5-10.1) Total Bilirubin 0.7mg/dL (0.0-1.2) Aspartate Amino Transf (AST/SGOT) 23U/L (0-50) Alanine Aminotransferase (ALT/SGPT) 16U/L (0-44) Alkaline Phosphatase 91U/L (25-160) Troponin T < 0.010ug/L (0.0-0.011) Total Protein 5.9g/dL (6.4-8.4) Albumin 2.8g/dL (3.4-5.0) Hold Game[employer] Top Tube Received (Received) ECG Interpretation ECG Interpretation: Sinus rate 60 LVH with secondary repolarization abnormality Prolonged QT interval Similar to 01/01/17 Time: 13:55 Interpreted by: ED physician CT Head Interpretation IMPRESSION: 1. No acute process. Dictated by: Kristyn Kasper M.D. on 01/07/2017 at 14:37 Approved by: Kristyn Kasper M.D. on 01/07/2017 at 14:38 Study: Head CT no contrast Interpretation / Wet Read by: Interpret - Radiologist Re-Eval/Medical Decision Med Decision/Clinical Course 2 days of new weakness and word finding difficulty. Likley new CVA. Unclear time of onset and full diagnosis. NOT a TPA candidate. Consultation : Consulted With: Hospitalist Call Returned at: 16:31 Note: Dr Jordan contacted. will accept patient Discharge & Departure Impression: Primary Impression: TIA (transient ischemic attack) Transient cerebral ischemia type: unspecified Qualified Code: G45.9 - Transient cerebral ischemic attack, unspecified Disposition: ADMITTED TO HOSPITAL Discharge Condition All VS Reviewed: Yes Condition: Stable Referrals: Moody Wade MD (PCP) Richard Attestation Portions of this note were transcribed by Salud Khanna. I, Dr. Cornejo personally performed the history, physical exam and medical decision-making; I reviewed and confirmed the accuracy of the information in the transcribed note. Signed by: Richard Comer, 01/07/17 copies to: Moody Wade MD, Shawna L MD Jan 07, 2017 13:14 SALUD KHANNA Jan 07, 2017 13:35
[2017-01-07 13:23] VITALS: BP 112/53; PULSE 60; RESP 20; O2SAT 100
--- NOTE | 2017-01-07 14:39 | DRSVH ---
PROCEDURE: CT BRAIN WITHOUT CONTRAST ([id number]) INDICATIONS: Stroke TECHNIQUE: Noncontrast 4.5 mm thick angled axial sections acquired from the foramen magnum to the vertex, with c oronal reformats. COMPARISON: [facility], CT, CT BRAIN WO CON, 01/01/2017, 1:08. [facility], C T, CT BRAIN WO CON, 12/27/2016, 17:28. [facility], CT, CT BRAIN WO CON, 12/26/2016, 17:53. FINDINGS: Image quality: Excellent. CSF spaces: Basal cisterns are patent. No extra-axial fluid collections. The ventricles are symmet lobo in size and shape. Brain: No intracranial bleeds or masses. No change in chronic bilateral basal ganglia infarcts. The re is cerebral volume loss for age, with resultant ventricular and sulcal prominence. There are rocael ventricular and deep white matter chronic small vessel ischemic changes. There is intracranial inter nal carotid artery atherosclerosis. Skull and face: Calvarium and visualized facial bones appear intact, without suspicious lesions. Sinuses: Visualized sinuses and mastoids are clear. IMPRESSION: 1. No acute process. Dictated by: Kristyn Kasper M.D. on 01/07/2017 at 14:37 Approved by: Kristyn Kasper M.D. on 01/07/2017 at 14:38
[2017-01-07 14:51] VITALS: BP 122/52; PULSE 60; RESP 19; O2SAT 99
[2017-01-07 14:58] LABS: BASOPHILS % (AUTO) 0.2 % (0-3); EOSINOPHILS % (AUTO) 1.4 % (0-5); MONOCYTES % (AUTO) 9.1 % (4-12); Mean Corpuscular Hemoglobin 24.8 pg (27.0-35.0); Mean Corpuscular Volume 80.9 fL (81-100); NEUTROPHILS % (AUTO) 74.5 % (40-74); Platelet Count 105 bil/L (150-400)
[2017-01-07 15:19] LABS: TROPONIN T < 0.010 ug/L (0.0-0.011)
[2017-01-07] MEDS ORDERED: CARV6.252 PO (16:07)
[2017-01-07] MEDS ORDERED: GLPZ5T PO (16:07)
[2017-01-07] MEDS ORDERED: NA P133E23 RC (16:07)
[2017-01-07] MEDS ORDERED: ACET325C PO (16:07)
[2017-01-07] MEDS ORDERED: MAGN400O4 PO (16:07)
[2017-01-07] MEDS ORDERED: INSU100I18 SUBQ (16:07)
[2017-01-07] MEDS ORDERED: ZINC57OI TP (16:07)
[2017-01-07] MEDS ORDERED: BISA10SU61 RC (16:07)
[2017-01-07] MEDS ORDERED: LISI2.5T PO (16:07)
[2017-01-07] MEDS ORDERED: GLUC1CAP13 PO (16:07)
[2017-01-07 16:16] VITALS: BP 143/54; PULSE 60; RESP 16; O2SAT 100
[2017-01-07] MEDS ORDERED: Ondansetron 2 mg/mL 2 mL Inj IVPUSH PRN ×2 (16:40→16:45)
[2017-01-07] MEDS ORDERED: hydrALAZINE 20 mg/mL Inj IVPUSH PRN (16:45)
[2017-01-07] MEDS ORDERED: Alum-Mag Hydrox-Simeth 30 mL Suspension PO PRN (16:45)
[2017-01-07] MEDS ORDERED: Polyethylene Glycol (PEG) 17 Gm Powder PO PRN ×2 (16:45→16:50)
[2017-01-07] MEDS ORDERED: Magnesium Hydroxide 355 mL Oral Suspension PO PRN (16:50)
[2017-01-07] MEDS ORDERED: Sodium Biphos-Phos 133 mL Enema RECTAL PRN (16:50)
[2017-01-07] MEDS ORDERED: Glucose 40% Oral Gel 15 Gm Tube PO PRN (16:55)
[2017-01-07] MEDS ORDERED: Dextrose 5% 0.9% NaCl 1,000 ML IV SCH (17:25)
[2017-01-07] MEDS: Insulin LISPRO 300 Unit/3 mL Inj SUBQ SCH ×2 (17:30→22:00)
--- NOTE | 2017-01-07 17:42 | PCM.HPMED ---
Subjective Date of Service Jan 07, 2017 Primary Provider: Admitting Physician: Familia Jordan MD Primary Care Physician: Moody Wade MD Attending Physician: Familia Jordan MD History of Present Illness: Jayson Vuong is a 76-year-old male who is a poor historian with a past medical history significant for orthostatic hypotension, diabetes mellitus type II, non- insulin using, CAD, hyperlipidemia, and left renal carcinoma status post nephrectomy who is being admitted to [facility] due to complaints/observation left foot drop and drag, ataxia, weakness, fatigue, and L sided neglect by PT at [facility]. He was recently admitted to the hospital for syncope, he had a cardiac cath at that time, and iCd placement As per cardiology, he was medically managed for his severe CHF(systolic heart failure). Patient is a poor historian. As per notes from ER, and [facility], patient was having left- sided weakness. CT of the head was done in ER, with no acute pathologies. Patient has had recent echo, results as mentioned below. Patient seen on the floor. Not a good historian due to underlying dementia, however alert and oriented X 3. Patient denies left sided weakness. Allergies Coded Allergies: No Known Allergies (Verified , 01/07/17) Constitutional: No: Chills, Fever, Malaise, Other, Sweats, Weakness Eyes: No: Conjunctivae inflammation, Eyelid inflammation, Other, Pain, Redness , Vision change ENT: No: Ear discharge, Ear pain, Mouth pain, Mouth swelling, Nose congestion, Nose discharge, Nose pain, Other, Throat pain, Throat swelling Respiratory: No: Cough, Dry, Hemoptysis, Other, Pleuritic Pain, SOB with excertion, Shortness of breath, Sputum, Wheezing, Wheezing Cardiovascular: No: Chest Pain, Edema, Lt Headedness, Orthopnea, Other, Palpitations, Paroxysmal Noc. Dyspnea Gastrointestinal: No: Abdominal Pain, Constipation, Diarrhea, Hematochezia, Melena, Nausea, Other, Vomiting Genitourinary: Negative for: Dysuria, Frequency, Hematuria, Incontinence, Other , Retention Musculoskeletal: No: arm pain, back pain, foot pain, hand pain, leg pain, neck pain, other, shoulder pain Skin: No: Bruising, Jaundice, Lesions, Other, Rash Neurological: : Other (as per HPI) Home Meds Active Scripts Atorvastatin Calcium 20 Mg Qyeksh40 Mg PO HS 30 Days Ref 3 Prov:Marvin Deleon DO 01/02/17 Isosorbide MN ER 60 Mg Tab.er.24h60 Mg PO 0730 30 Days Ref 3 Prov:Marvin Deleon DO 01/02/17 Furosemide 40 Mg Nhakrz06 Mg PO DAILY 30 Days Ref 3 Prov:Marvin Deleon DO 01/02/17 Fludrocortisone Acetate 0.1 Mg Tablet0.1 Mg PO DAILY #30 TABLET Prov:Mikey Malik MD 02/16/16 Polyethylene Glycol 3350 (Miralax)17 Gm Powd.pack17 Gm PO DAILY PRN For Constipation #30 Prov:Mikey Malik MD 02/16/[address] 40 Mg Tablet.dr40 Mg PO DAILYAC #30 Prov:Mikey Malik MD 02/16/16 Tamsulosin (Flomax)0.4 Mg Capsule0.4 Mg PO HS #30 CAPSULE Prov:Mikey Malik MD 02/16/16 Reported Medications Acetaminophen 325 Mg Zvowvpy808 Mg PO q4 hours PRN For Pain 01/07/17 Na Phos,M-B/Na Phos,Di-Ba (Fleet Enema)133 Ml Uywdj988 Ml RC DAILY PRN For Constipation 01/07/17 Bisacodyl (Dulcolax Rectal)10 Mg Supp.rect10 Mg RC DAILY PRN For Constipation 30 Days Ref 0 01/07/17 Magnesium Hydroxide (Milk of Magnesia)400 Mg/5 Ml Oral.susp30 Ml PO DAILY PRN For Constipation 01/07/17 Insulin Lispro (HumaLOG U100 Insulin Pen)100 Unit/1 Ml Insuln.pen0-12 Unit SUBQ ACHS PRN sliding scale #1 PENINJ Ref 0 Blood Sugar Lispro Correction <151 0 units 151-175 1 unit 176-200 2 units 201-225 3 units 226-250 4 units 251-275 5 units 276-300 6 units 301-325 7 units 326-350 8 units 351-375 9 units 376-400 10 units >400 12 units Check blood sugars before meals and at bedtime. Use correction factor only before meals. 01/07/17 Zinc Oxide 57 Gm Oint...g.1 Applic TP TID 01/07/17 Carvedilol 6.25 Mg Tablet6.25 Mg PO BID #60 01/07/17 Lisinopril 2.5 Mg Tablet2.5 Mg PO DAILY 30 Days Ref 0 01/07/17 Gluc HCl/Csa/Aubrie Hy/Hyalur AC (Glucosamine Chondroitin Cap)1 Each Capsule2 Each PO DAILY 01/07/17 Glipizide 5 Mg Tablet5 Mg PO DAILY #60 01/07/17 Insulin Glargine (Lantus U100 Solostar Insulin Pen)100 Unit/1 Ml Insuln.pen50 Unit SUBQ HS #1 PENINJ Ref 0 01/30/16 Fluoxetine 20 Mg Rgmwfph66 Mg PO DAILY Ref 0 morning 01/30/16 Aspirin 325 Mg Amnjfc661 Mg PO DAILY #1 BOTTLE 01/30/16 Discontinued Reported Medications Simvastatin 40 Mg Vmdagx86 Mg PO HS 30 Days Ref 0 01/30/16 [Clucosamine-Chondro] No Conflict Check2 Tab ORAL DAILY 01/30/16 Glipizide ER 5 Mg Tab.er.245 Mg PO DAILY take with breakfast 01/30/16 Discontinued Scripts Carvedilol 3.125 Mg Tablet6.25 Mg PO BIDWM 30 Days Ref 3 Prov:Marvin Deleon 01/02/17 Lisinopril 5 Mg Tablet2.5 Mg PO DAILY 30 Days Ref 3 Prov:Marvin Deleon Jacy RODRÍGUEZ 01/02/17 Insulin Human Lispro (HumaLOG U100 Insulin Vial)100 Unit/Ml Unit Subq Wmhs #30 Unit Check blood sugars before meals and at bedtime. Use correction factor only before meals. Blood Sugar Lispro Correction: <151, 0 units; 151-175, 1 unit; 176-200, 2 units; 201-225, 3 units; 226-250, 4 units; 251-275, 5 units; 276-300, 6 units; 301-325, 7 units; 326-350, 8 units; 351-375, 9 units; 376-400, 10 units; >400, 12 units. Prov:Mikey Malik MD 02/16/16 [Acetaminophen] (Tylenol)325 MG TABLET No Conflict Jqkkx533 Mg PO Q6H PRN For Mild Pain or Fever Prov:Mikey Malik MD 02/16/16 Carvedilol 6.25 Mg Apcrff08.5 Mg PO BID #14 TABLET Ref 0 with food Prov:David Salazar DO 02/07/16 PMH 1. Renal carcinoma status post left nephrectomy. 2. Diabetes mellitus type II, non-insulin using. 3. CVA. 4. Orthostatic hypotension. 5. Hyperlipidemia. 6. CAD with history of OK status post stent? 7. Depression. 8. GERD. 9. BPH. 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 Social History Hx Alcohol Use: Yes (32 years sober) Hx Substance Use: No Hx Tobacco Use: Yes Smoking Status: Former Smoker Exam Vital Signs Vital Sign - Last Date Time Temp Pulse Resp B/P Pulse Ox O2 Delivery O2 Flow Rate FiO2 01/07/17 16:16 60 16 143/54 100 Room Air 01/07/17 13:23 36.2 Exam General: Elderly gentleman sitting in bed and in no acute distress, thin, appropriately interactive. HEENT: Normocephalic, atraumatic. External ears without defect. Pupils equal, round, and reactive to light. Left eye contusion and small abrasion on scalp. Anicteric sclerae, moist conjunctivae, and no lid lag. Oropharynx free of erythema and cobble stoning. Dry mucous membranes. Neck: Supple with full range of motion. No jugular venous distension. No bruits. No lymphadenopathy or thyromegaly. Cardiovascular: Distant heart sounds, regular rhythm, bradycardic without murmurs, rubs, or gallops appreciated Pulmonary: Clear to auscultation bilaterally without crackles, wheezes, or rhonchi. Normal respiratory effort with no use of accessory muscles. Abdomen:Soft, nontender, nondistended, bowel sounds present. No hepatosplenomegaly or masses appreciated. Genitourinary: Fragoso/glans of penis is inverted and edematous. Extremities: Moderate bilateral pitting edema to waiste bilaterally. No clubbing or cyanosis. Skin: Normal temperature, turgor, and texture; no rash, ulcers, or subcutaneous nodules appreciated. Neurological: Cranial nerves grossly intact. Normal muscle strength, tone, and bulk. Reflexes, coordination, and sensory function within normal limits. Psychiatric: Normal mood and affect. Alert and oriented to person, place, and time. Lab and Diagnostics Result Diagram: 01/07/17 1445 01/07/17 1445 Cardiac Echo Impressions Echocardiogram Interpretation Summary 1) Moderately dilated left ventricle wtih severely reduced function (EF 20-25%). 2) Severe global hypokinesis present. 3) Moderately dilated right ventricular with moderately reduced function. 4) Mild aortic stenosis present (calculated valve area 1.6cm2). 5) Pulmonary hypertension present, systolic pulmonary pressure estimated at 64 mmHg assuming a right atrial pressure of 15 mm Hg. 6) Compared to the Echo done 02/10/2016, LV function has dropped significantly from 45-50% to 20-25% on today's study. Additional Diagnostics: Cardiac Cath FINDINGS: LMCA: Note a 40% distal tapering. The left main coronary artery is a large moderately short vessel. There is very heavy aortic calcification near the ostium of the LMCA. There is an angiographically unimpressive intermediate distal tapering noted (QCA calculates 41% stenosis). LAD: Intact. The left anterior descending coronary artery is a large transapical vessel with moderate diffuse atherosclerotic plaquing including angiographically unimpressive 40% proximal plaque. There are no large diagonals present. LCX: Note 40% focal ostial narrowing; and occluded mid LCX with collaterals to three distal OMs coming from large OM-1. The circumflex is consistent with the prior description of occluded OM. There is a large first OM and an occlusion prior to the mid and distal circumflex which has at least three OM branches filled by collaterals. The continuation circumflex is a small vessel with 90% focal ostial narrowing noted. RCA: Dominant. Occluded at the ostium with heavy calcification throughout the RCA. There are antegrade bridging collaterals proximally. The distal branches of the RCA are filled only modestly by left to right collaterals primarily from the septal arcade. LHC: LVED 27 mmHg; and no systolic gradient on pullback across the aortic valve. Satish Zaragoza MD 12/29/16 1050 Assessment & Plan Jayson Vuong is a 76-year-old male who is a poor historian with a past medical history significant for orthostatic hypotension, diabetes mellitus type II, non- insulin using, CAD, hyperlipidemia, and left renal carcinoma status post nephrectomy who presented to [facility] emergency department due to complaints of left foot drop and drag, ataxia, weakness, fatigue, and L sided neglect #TIA - symptoms not seen inpatient - CT head negative - recent echo as seen above - will get carotid dopplers - neuro checks Q4H - MRI cannot be done as patient has an ICD # Hypoglycemia - sugars in ER low - 40s in ER - will start patient on D5NS for time being while he is NPO - last HbA1C (about 10 days ago), 8.7 - will keep only correction dose lispro for now # CHF (systolic HF) EF 20-25% - on lasix, metoprolol, lisinopril - will continue to monitor #. Diabetes mellitus type II, insulin using, present on admission. Stable. - Hemoglobin A1c 8.7% - Held oral anti-glycemic. - Ordered heart healthy/carbohydrate consistent diet. - Patient is reportedly off of all insulin as there may have been a component of hypoglycemia contributing to his orthostasis. Ordered low-dose correctional scale insulin for coverage. #. Hyperlipidemia, present on admission. Stable. - Continue atorvastatin 20 mg daily at bedtime once medication reconciliation is completed. # CAD, present on admission. Stable. - Continue aspirin 325 mg daily and beta verena once medication reconciliation is completed. # CKD - baseline cr seems to be around 1.3 - continue to monitor # Depression, present on admission. Stable. - Continue fluoxetine 20 mg daily once medication reconciliation is completed. # GERD, present on admission. Stable. - Not medically treated. # BPH, present on admission. Stable. - Previously on tamsulosin 0.4 mg daily at bedtime but per patient this medication has been stopped likely due to orthostasis Patient likely to stay <2 midnights in obs. . Time spent 35 mins Familia Jordan MD Jan 07, 2017 17:41
--- NOTE | 2017-01-07 18:20 | NUR ---
Arrived on Unit Patient arrived on floor from ED via stretcher in stable condition. VSS. A&Ox3. Patient denies pain and nausea at this time. Admit not complete. US in room. Call light and tray table within reach. Will continue to monitor patient hourly.
[2017-01-07 18:36] VITALS: BP 145/77; PULSE 60; RESP 20; O2SAT 100
--- NOTE | 2017-01-07 19:32 | DRSVH ---
PROCEDURE: US BILATERAL DUPLEX DOPPLER IMAGING OF THE CAROTIDS ([id number]) INDICATIONS: TIA TECHNIQUE: Color and pulse Doppler interrogation was performed of both carotid systems, with image documentation and velocity measurements. COMPARISON: None. FINDINGS: Stenosis calculations are based on SRU (Society of Radiologists in Ultrasound) criteria. Right side: Brachial blood pressure: Not obtained Common carotid artery peak systolic velocity: 34.2 cm/sec. Internal carotid artery peak systolic velocity: 52.7 cm/sec. Internal carotid artery end diastolic velocity: 12.5 cm/sec. External carotid artery peak systolic velocity: 35.5 cm/sec. ICA/CCA peak systolic ratio: 1.54. Dobbins scale imaging description: Atheromatous plaque is present at the carotid bifurcation. Percent internal carotid artery stenosis: Less than 50%. Vertebral artery: Flow direction is antegrade. Left side: Brachial blood pressure: 145/77 mm Hg. Common carotid artery peak systolic velocity: 28.4 cm/sec. Internal carotid artery peak systolic velocity: 80.2 cm/sec. Internal carotid artery end diastolic velocity: 8.4 cm/sec. External carotid artery peak systolic velocity: 99.3 cm/sec. ICA/CCA peak systolic ratio: 2.79. Dobbins scale imaging description: Dense atheromatous calcification is present at the carotid bifurcatio n. Percent internal carotid artery stenosis: 50-69% stenosis. Vertebral artery: Flow direction is antegrade. IMPRESSION: 1. Less than 50% stenosis of the right internal carotid artery. 2. 50-69% stenosis the left internal carotid artery. Dictated by: Virginia Rios M.D. on 01/07/2017 at 19:28 Approved by: Virginia Rios M.D. on 01/07/2017 at 19:30
[2017-01-07 19:54] LABS: APPEARANCE,URINE CLEAR (CLEAR,HAZY); COLOR,URINE YELLOW (YELLOW); OCCULT BLOOD,URINE NEGATIVE (NEGATIVE); UROBILINOGEN,URINE NORMAL (NORMAL)
--- NOTE | 2017-01-07 20:01 | NUR ---
Case Management: FRANCIS explained to patient at 1945, all questions answered. Signed original placed in chart, copy given to patient. He informed me that his plan is to discharge home and not to return to [facility]. Mariana Hernandez RN
[2017-01-07 20:05] VITALS: BP 148/68; PULSE 59; RESP 20; O2SAT 98
[2017-01-07 20:57] VITALS: PULSE 64
[2017-01-08] VITALS (8 sets, daily range): BP systolic 111–149; BP diastolic 49–79; PULSE 59–64; RESP 16–18; O2SAT 96–99
--- NOTE | 2017-01-08 04:07 | NUR ---
Activity Pt has remained stable all night, VSS, 0 c/o pain. Pt is A/O x3, has episodes of confusion which appears to be baseline, has not changed all shift. +CMS, ROM equal BL, equal administrative assistant data entry, pupils and speech normal. Pt BS fluctuates, at start of shift 58, per orders started D5NS, checked in 1hr and PT BS 140 and Pt eating dinner. Stopped fluids. Pt snacking. BS at 2345 115. Pt still asking for snacks, awake A/O, watching TV. Recheck BS at 0230- 210. Pt stopped snacks and finally fell sleep for couple hrs. Pt is incont of urine. Pt is weak with transfers, required 2EA with gait belt and walker. . Call light in reach, bed in low position with HOB at 30 degrees. Care continues
[2017-01-08 05:36] LABS: BASOPHILS % (AUTO) 0.2 % (0-3); EOSINOPHILS % (AUTO) 0.6 % (0-5); MONOCYTES % (AUTO) 8.4 % (4-12); Mean Corpuscular Hemoglobin 24.9 pg (27.0-35.0); Mean Corpuscular Volume 81.2 fL (81-100); NEUTROPHILS % (AUTO) 80.3 % (40-74); Platelet Count 104 bil/L (150-400)
[2017-01-08] MEDS: Insulin LISPRO 300 Unit/3 mL Inj SUBQ SCH ×4 (08:00→22:00)
[2017-01-08] MEDS: Pantoprazole 40 mg ER24 Tablet PO SCH (08:18)
[2017-01-08] MEDS: Isosorbide Mononitrate 60 mg ER24 Tablet PO SCH (08:19)
--- NOTE | 2017-01-08 09:12 | PCM.PNMED ---
Subjective Date of Service Jan 08, 2017 Subjective Patient seen and examined. Saw him walking down the hallway. No symptoms of left side weakness. Left arm weaker than the right, however could be related to him wearing a sling after his recent pacemaker replacement. Speech intact. Vitals noted. Exam Vital Signs Vital Sign - Last Date Time Temp Pulse Resp B/P Pulse Ox O2 Delivery O2 Flow Rate FiO2 01/08/17 07:56 36.4 59 16 142/78 99 Room Air Intake and Output 01/07/17 01/07/17 01/08/17 Cumulative From/Thru 15:00 23:00 07:00 01/07/17 13:23 - 01/08/17 06:03 Intake Total 250 ml 880 ml 1130 ml Output Total 1048 ml 1048 ml Balance 250 ml -168 ml 82 ml Intake IV Total 250 ml 880 ml 1130 ml Output Urine Total 1048 ml 1048 ml # Voids 1 1 # Bowel Movements 0 0 Exam General: Elderly gentleman sitting in bed and in no acute distress, thin, appropriately interactive. Cardiovascular: Distant heart sounds, regular rhythm, bradycardic without murmurs, rubs, or gallops appreciated Pulmonary: Clear to auscultation bilaterally without crackles, wheezes, or rhonchi. Normal respiratory effort with no use of accessory muscles. Abdomen:Soft, nontender, nondistended, bowel sounds present. No hepatosplenomegaly or masses appreciated.. Neurological: Cranial nerves grossly intact. Normal muscle strength, tone, and bulk. Reflexes, coordination, and sensory function within normal limits.Mild Left arm weakness noted when flexing. Psychiatric: Normal mood and affect. Alert and oriented to person, place, and time. Lab and Diagnostics Result Diagram: 01/08/17 0439 01/08/17 0439 Cardiac Echo Impressions Echocardiogram Interpretation Summary 1) Moderately dilated left ventricle wtih severely reduced function (EF 20-25%). 2) Severe global hypokinesis present. 3) Moderately dilated right ventricular with moderately reduced function. 4) Mild aortic stenosis present (calculated valve area 1.6cm2). 5) Pulmonary hypertension present, systolic pulmonary pressure estimated at 64 mmHg assuming a right atrial pressure of 15 mm Hg. 6) Compared to the Echo done 02/10/2016, LV function has dropped significantly from 45-50% to 20-25% on today's study. Additional Diagnostics Cardiac Cath FINDINGS: LMCA: Note a 40% distal tapering. The left main coronary artery is a large moderately short vessel. There is very heavy aortic calcification near the ostium of the LMCA. There is an angiographically unimpressive intermediate distal tapering noted (QCA calculates 41% stenosis). LAD: Intact. The left anterior descending coronary artery is a large transapical vessel with moderate diffuse atherosclerotic plaquing including angiographically unimpressive 40% proximal plaque. There are no large diagonals present. LCX: Note 40% focal ostial narrowing; and occluded mid LCX with collaterals to three distal OMs coming from large OM-1. The circumflex is consistent with the prior description of occluded OM. There is a large first OM and an occlusion prior to the mid and distal circumflex which has at least three OM branches filled by collaterals. The continuation circumflex is a small vessel with 90% focal ostial narrowing noted. RCA: Dominant. Occluded at the ostium with heavy calcification throughout the RCA. There are antegrade bridging collaterals proximally. The distal branches of the RCA are filled only modestly by left to right collaterals primarily from the septal arcade. LHC: LVED 27 mmHg; and no systolic gradient on pullback across the aortic valve. Satish Zaragoza MD 12/29/16 1050 Assessment & Plan Jayson Vuong is a 76-year-old male who is a poor historian with a past medical history significant for orthostatic hypotension, diabetes mellitus type II, non- insulin using, CAD, hyperlipidemia, and left renal carcinoma status post nephrectomy who presented to [facility] emergency department due to complaints of left foot drop and drag, ataxia, weakness, fatigue, and L sided neglect #TIA - symptoms not seen inpatient - CT head negative - recent echo as seen above - Carotid dopplers noted for less than 60% stenosis - MRI cannot be done as patient has an ICD - may repeat CT in a day to see if there is an underlying stroke, however management stays the same # Hypoglycemia - sugars in ER low - 40s in ER - improved inpatient - last HbA1C (about 10 days ago), 8.7 - will keep only correction dose lispro for now only # CHF (systolic HF) EF 20-25% - on lasix, metoprolol, lisinopril - will continue to monitor #. Diabetes mellitus type II, insulin using, present on admission. Stable. - Hemoglobin A1c 8.7% - Held oral anti-glycemic. - Ordered heart healthy/carbohydrate consistent diet. #. Hyperlipidemia, present on admission. Stable. - Continue atorvastatin 20 mg daily at bedtime. # CAD, present on admission. Stable. - Continue aspirin 325 mg daily and beta verena # CKD - baseline cr seems to be around 1.3 - continue to monitor # Depression, present on admission. Stable. - Continue fluoxetine 20 mg daily # GERD, present on admission. Stable. - Not medically treated. # BPH, present on admission. Stable. - Previously on tamsulosin 0.4 mg daily at bedtime but per patient this medication has been stopped likely due to orthostasis Patient likely to stay <2 midnights in obs. . VTE Mechanical Devices: Intermittant Pneumatic CD Time spent 35 mins Familia Jordan MD Jan 08, 2017 09:12
--- NOTE | 2017-01-08 09:13 | NUR ---
Social Work: Initial Assessment/ Readiness for Discharge D: Per EMR review, pt is a 76 year old male admitted for stroke/TIA. Pt is Medicare with [facility] with no LTC or VA benefits. PCP is Moody Wade MD. JERMAINE is Isabel Conteh, urvashi, . Advanced directives information declined. Pt's readmit risk score is 6/8 high risk. Pt is a readmit, admitted from [facility] where he has been for skilled rehab. SW attempted to meet with pt at bedside but OT was evaluating pt. SW was able to gain initial assessment information from chart review. Prior to , pt lived in [place], alone. Pt used no DME, continued to drive and has never had home health. Pt has history at [facility]. INOCENCIA placed call to Evie, admissions at [facility], regarding pt's return. Evie is agreeable to pt's return when medically ready, including today if needed. Paperwork placed in pt's chart. SW will continue to follow. A: Pt who was previously living at home, alone, who presents to the hospital from [facility] where he has been receiving skilled rehab services. P: Pt likely to return to [facility] when medically stable for discharge. Paperwork in patients chart. SW will continue to follow. NASEEM Gracia Addendum: 01/08/17 at 0918 by REJI TA SS Amended: Links added.
--- NOTE | 2017-01-08 10:02 | NUR ---
Evaluation completed. Please go to "Notes" then click on "Assessments and Notes" (bottom left corner of screen). Then select appropriate discipline tab on top of screen.
--- NOTE | 2017-01-08 19:15 | NUR ---
Activity Patient up to chair with 1-2 person assist with FWW. Denies pain and nausea this shift. BS 89, 79, 113 this shift. No insulin coverage. Call light and tray table within reach. Will continue to monitor patient hourly.
[2017-01-09 00:30] VITALS: BP 138/73; PULSE 60; RESP 18; O2SAT 99
--- NOTE | 2017-01-09 02:51 | NUR ---
NUTRITION Pt reported at 1900, he had not received a dinner tray. Previous RN stated that pt stated he already ordered a tray for himself. Around 2100, pt stated he had still not received a tray. Pt given sandwich, 3 ice creams, and microwave meal. Pt frustrated his tray never arrived, but was satisfied with what was given. Blood sugar after late dinner was 121, no coverage given. Continuing care.
[2017-01-09 05:50] VITALS: BP 145/81; PULSE 55; RESP 20; O2SAT 100
[2017-01-09 07:46] VITALS: BP 145/82; PULSE 63; RESP 18; O2SAT 100
[2017-01-09] MEDS: Insulin LISPRO 300 Unit/3 mL Inj SUBQ SCH ×3 (08:00→16:55)
[2017-01-09] MEDS: Pantoprazole 40 mg ER24 Tablet PO SCH (08:04)
[2017-01-09] MEDS: Isosorbide Mononitrate 60 mg ER24 Tablet PO SCH (08:05)
--- NOTE | 2017-01-09 09:38 | NUR ---
Evaluation completed. Please go to "Notes" then click on "Assessments and Notes" (bottom left corner of screen). Then select appropriate discipline tab on top of screen.
[2017-01-09 10:51] VITALS: PULSE 60
[2017-01-09 13:02] VITALS: BP 121/61; PULSE 60; RESP 18; O2SAT 97
--- NOTE | 2017-01-09 14:52 | NUR ---
Social Work- Readiness for Discharge Data: EMR reviewed. Pt is on day 2 of hospitalization for stroke/tia. Pt discussed in multidisciplinary rounds, pt will return to [facility] at time of discharge. Paperwork in patient's chart. SW spoke with pt at bedside today regarding discharge plan, pt is agreeable to discharge to [facility]. T/C to Evie, admissions at [facility], who is agreeable to admissions today. Evie is scheduling transportation for pt at 1600. Awaiting return call to confirm. RN, UC, pt all updated and agreeable to plan. SW will continue to follow. Assessment: Pt who requires SNF level of care. Plan: Awaiting confirmation call regarding transportation at 1600. Pt to d/c to [facility] for continued rehab. RN, UC, pt all updated and agreeable to plan. SW will continue to follow. NASEEM Gracia
--- NOTE | 2017-01-09 15:05 | PCM.DIMED ---
Discharge Instructions Date of Service Jan 09, 2017 Dates of Hospitalization Jan 07, 2017 at 16:41 Discharge Diagnosis Discharge Diagnosis TIA Chronic systolic CHF with ejection fraction 20-25%, diabetes mellitus, type II CAD, CTD stage III, depression, GERD, BPH Diet Discharge Diet: Low fat, Low Sodium, Heart Healthy Activity Discharge Activity: Other (avoid heavy physical work or exertion) Patient Instructions Patient Instructions Follow-up with her primary care provider, smoke jumper for further evaluation and management. Follow-up with PCP in: 1 week Anam Bernstein MD Jan 09, 2017 15:05
--- NOTE | 2017-01-09 15:09 | PCM.DC.MED ---
Discharge Summary Date of Service Jan 09, 2017 Dates of Hospitalization Date of Hospital Admission Jan 07, 2017 at 16:41 Date of Discharge: Jan 09, 2017 Providers: Admitting Physician: Familia Jordan MD Primary Care Physician: Moody Wade MD Attending Physician: Anam Bernstein MD Diagnosis at Time of Discharge Diagnosis at Time of Discharge TIA Chronic systolic CHF with ejection fraction 20-25%, diabetes mellitus, type II CAD, CTD stage III, depression, GERD, BPH Procedures Cardiac Echo Impression Echocardiogram Interpretation Summary 1) Moderately dilated left ventricle wtih severely reduced function (EF 20-25%). 2) Severe global hypokinesis present. 3) Moderately dilated right ventricular with moderately reduced function. 4) Mild aortic stenosis present (calculated valve area 1.6cm2). 5) Pulmonary hypertension present, systolic pulmonary pressure estimated at 64 mmHg assuming a right atrial pressure of 15 mm Hg. 6) Compared to the Echo done 02/10/2016, LV function has dropped significantly from 45-50% to 20-25% on today's study. ECG * Atrial-paced rhythm * Low voltage, extremity leads . LVH with secondary repolarization abnormality * Borderline prolonged QT interval . When compared with ECG of 01-Jan-2017 8:02:05, * Atrial pacing has replaced sinus rhythm * ST-T abnormalities are more prominent Carotid US 1. Less than 50% stenosis of the right internal carotid artery. 2. 50-69% stenosis the left internal carotid artery Other Diagnostics Cardiac Cath FINDINGS: LMCA: Note a 40% distal tapering. The left main coronary artery is a large moderately short vessel. There is very heavy aortic calcification near the ostium of the LMCA. There is an angiographically unimpressive intermediate distal tapering noted (QCA calculates 41% stenosis). LAD: Intact. The left anterior descending coronary artery is a large transapical vessel with moderate diffuse atherosclerotic plaquing including angiographically unimpressive 40% proximal plaque. There are no large diagonals present. LCX: Note 40% focal ostial narrowing; and occluded mid LCX with collaterals to three distal OMs coming from large OM-1. The circumflex is consistent with the prior description of occluded OM. There is a large first OM and an occlusion prior to the mid and distal circumflex which has at least three OM branches filled by collaterals. The continuation circumflex is a small vessel with 90% focal ostial narrowing noted. RCA: Dominant. Occluded at the ostium with heavy calcification throughout the RCA. There are antegrade bridging collaterals proximally. The distal branches of the RCA are filled only modestly by left to right collaterals primarily from the septal arcade. LHC: LVED 27 mmHg; and no systolic gradient on pullback across the aortic valve. Satish Zaragoza MD 12/29/16 1050 Hospital Course Patient with past medical history of chronic systolic CHF with ejection fraction 20-25%, s/p Dual-chamber implantable cardioverter-defibrillator placement 12/31/16, diabetes mellitus, type II CAD, CTD stage III, depression, GERD, BPH presented to emergency department complaining of left-sided weakness, left foot drop, dizziness, generalized weakness. CT of the head showed chronic changes, echocardiography showed ejection fraction 20-25%, pulmonary hypertension. Compared to echo done in January 2016 his ejection fraction decreased from 4550 to 2025 %. Patient's symptoms improved. The patient improved he was discharged back to the facility, with recommendations to follow up with his primary care provider, clinical nurse occupational medicine for further evaluation and management of his medical problems. During discharge patient was alert, oriented, able to make own informed decisions. We discussed possible severe side effects, adverse reactions, benefits, risks, alternatives of current and newly prescribed medications and diagnostic procedures. Patient verbalized understanding and agreed to current plan of care and discharge. I stopped Lantus and continued with insulin sliding scale for now as patient presented with low blood sugar. This should be adjusted by his primary care doctor at the facility. Patient was seen and examined the discharge TIME SPENT IN DISCHARGE ACTIVITY: Face to face activity greater then 30 minutes spent in discharge activity. 1. Discussed with patient re: discharge plan of care/treatment, and follow up care/services. 2. Patient agreed with discharge plan and further plan of care, all questions were answered/addressed, no further questions at the time of discharge. Exam Vital Signs (Last) Date Time Temp Pulse Resp B/P Pulse Ox O2 Delivery O2 Flow Rate FiO2 01/09/17 13:02 36.4 60 18 121/61 97 Room Air Test 01/07/17 14:45 01/07/17 19:20 01/08/17 04:39 01/09/17 05:20 Hemoglobin A1c 8.5% (4.8-5.6) Troponin T < 0.010ug/L (0.0-0.011) Triglycerides Level 42mg/dL (0-149) Cholesterol Level 100mg/dL (100-199) LDL Cholesterol, Calculated 49.600mg/dL (0-99) VLDL Cholesterol 8.400mg/dL HDL Cholesterol 42mg/dL (>39) Cholesterol/HDL Ratio 2.38 (0.0-4.4) Hold Gamez Top Tube Received (Received) Urine Color Yellow (YELLOW) Urine Appearance Clear (CLEAR,HAZY) Urine pH 7.0 (5.0-8.0) Urine Specific [place] 1.010 (1.003-1.035) Urine Protein Negativemg/dL (NEG,TRACE) Urine Glucose (UA) Negativemg/dL (NEGATIVE) Urine Ketones Negativemg/dL (NEGATIVE) Urine Occult Blood Negative (NEGATIVE) Urine Nitrite Negative (NEGATIVE) Urine Bilirubin Negative (NEGATIVE) Urine Urobilinogen Normalmg/dL (NORMAL) Urine Leukocyte Esterase Negative (NEGATIVE) Urine RBC 0-2/hpf (0-2) Urine WBC 0-5/hpf (0-5) Urine Epithelial Cells Occasional/hpf (NONE-MOD) Urine Crystals None seen (NONE SEEN) Urine Bacteria None/hpf (NONE-FEW) Urine Hyaline Casts None/lpf (NONE) Urine Granular Casts None seen (NONE SEEN) Urine Waxy Casts None seen (NONE SEEN) Urine Red Blood Cell Casts None seen (NONE SEEN) Urine White Blood Cell Casts None seen (NONE SEEN) Urine Mucus None seen (None Seen) Urine Trichomonas None seen (NONE SEEN) Urine Yeast None (NONE SEEN) Urinalysis Comment None Urine Culture Reflexed Not indicated White Blood Count 6.3th/mm3 (3.8-10.1) Red Blood Count 4.46mil/mm3 (4.40-5.80) Hemoglobin 11.1g/dL (13.8-17.2) Hematocrit 36.2% (41.0-50.0) Mean Corpuscular Volume 81.2fL (81-100) Mean Corpuscular Hemoglobin 24.9pg (27.0-35.0) Mean Corpuscular Hemoglobin Concent 30.7% (32.0-37.0) Red Cell Distribution Width 18.7% (12.3-15.4) Platelet Count 104bil/L (150-400) Neutrophils (%) (Auto) 80.3% (40-74) Lymphocytes (%) (Auto) 10.3% (14-46) Monocytes (%) (Auto) 8.4% (4-12) Eosinophils (%) (Auto) 0.6% (0-5) Basophils (%) (Auto) 0.2% (0-3) Total Bilirubin 0.6mg/dL (0.0-1.2) Aspartate Amino Transf (AST/SGOT) 28U/L (0-50) Alanine Aminotransferase (ALT/SGPT) 19U/L (0-44) Alkaline Phosphatase 106U/L (25-160) Total Protein 6.0g/dL (6.4-8.4) Albumin 3.1g/dL (3.4-5.0) Sodium Level 140mEq/L (134-144) Potassium Level 4.6mEq/L (3.5-5.2) Chloride Level 102mEq/L (97-108) Carbon Dioxide Level 23mmol/L (18-29) Blood Urea Nitrogen 32mg/dL (8-27) Creatinine 1.39mg/dL (0.76-1.27) Estimat Glomerular Filtration Rate 53mL/min (>59) Glucose Level 157mg/dL (60-99) Calcium Level 8.4mg/dL (8.5-10.1) Discharge Medications Discharge Medications Aspirin (Aspirin) 325 Mg Tablet 325 MG PO DAILY (Reported) Atorvastatin Calcium (Atorvastatin Calcium) 20 Mg Tablet 20 MG PO HS Prescribed by: LUCINA MENDEZ DO Carvedilol (Carvedilol) 6.25 Mg Tablet 6.25 MG PO BID (Reported) Fludrocortisone Acetate (Fludrocortisone Acetate) 0.1 Mg Tablet 0.1 MG PO DAILY Prescribed by: YOLANDA ARRIOLA MD Fluoxetine (Fluoxetine) 20 Mg Capsule 20 MG PO DAILY (Reported) morning Furosemide (Furosemide) 40 Mg Tablet 40 MG PO DAILY Prescribed by: LUCINA MENDEZ DO Glipizide (Glipizide) 5 Mg Tablet 5 MG PO DAILY (Reported) Gluc HCl/Csa/Aubrie Hy/Hyalur AC (Glucosamine Chondroitin Cap) 1 Each Capsule 2 EACH PO DAILY (Reported) Isosorbide MN ER (Isosorbide MN ER) 60 Mg Tab.er.24h 60 MG PO 0730 Prescribed by: LUCINA MENDEZ DO Lisinopril (Lisinopril) 2.5 Mg Tablet 2.5 MG PO DAILY (Reported) Pantoprazole DR (Pantoprazole DR) 40 Mg Tablet.dr 40 MG PO DAILYAC Prescribed by: YOLANDA ARRIOLA MD Tamsulosin (Flomax) 0.4 Mg Capsule 0.4 MG PO HS Prescribed by: YOLANDA ARRIOLA MD Zinc Oxide (Zinc Oxide) 57 Gm Oint...g. 1 APPLIC TP TID (Reported) As needed Acetaminophen (Acetaminophen) 325 Mg Capsule 650 MG PO q4 hours PRN PRN For Pain (Reported) Bisacodyl (Dulcolax Rectal) 10 Mg Supp.rect 10 MG RC DAILY PRN PRN For Constipation (Reported) Insulin Lispro (HumaLOG U100 Insulin Pen) 100 Unit/1 Ml Insuln.pen 0-12 UNIT SUBQ ACHS PRN PRN sliding scale (Reported) Blood Sugar Lispro Correction <151 0 units 151-175 1 unit 176-200 2 units 201-225 3 units 226-250 4 units 251-275 5 units 276-300 6 units 301-325 7 units 326-350 8 units 351-375 9 units 376-400 10 units >400 12 units Check blood sugars before meals and at bedtime. Use correction factor only before meals. Magnesium Hydroxide (Milk of Magnesia) 400 Mg/5 Ml Oral.susp 30 ML PO DAILY PRN PRN For Constipation (Reported) Na Phos,M-B/Na Phos,Di-Ba (Fleet Enema) 133 Ml Enema 133 ML RC DAILY PRN PRN For Constipation (Reported) Polyethylene Glycol 3350 (Miralax) 17 Gm Powd.pack 17 GM PO DAILY PRN PRN For Constipation Prescribed by: YOALNDA ARRIOLA MD Followup Plan Discharge Diet: Low fat, Low Sodium, Heart Healthy Discharge Activity: Other (avoid heavy physical work or exertion) Patient Instructions Follow-up with her primary care provider, clinical nurse occupational medicine for further evaluation and management. Follow-up with PCP in: 1 week Anam Bernstein MD Jan 09, 2017 15:09 Pain (Reported) Bisacodyl (Dulcolax Rectal) 10 Mg Supp.rect 10 MG RC DAILY PRN PRN For Constipation (Reported) Insulin Lispro (HumaLOG U100 Insulin Pen) 100 Unit/1 Ml Insuln.pen 0-12 UNIT SUBQ ACHS PRN PRN sliding scale (Reported) Blood Sugar Lispro Correction <151 0 units 151-175 1 unit 176-200 2 units 201-225 3 units 226-250 4 units 251-275 5 units 276-300 6 units 301-325 7 units 326-350 8 units 351-375 9 units 376-400 10 units >400 12 units Check blood sugars before meals and at bedtime. Use correction factor only before meals. Magnesium Hydroxide (Milk of Magnesia) 400 Mg/5 Ml Oral.susp 30 ML PO DAILY PRN PRN For Constipation (Reported) Na Phos,M-B/Na Phos,Di-Ba (Fleet Enema) 133 Ml Enema 133 ML RC DAILY PRN PRN For Constipation (Reported) Polyethylene Glycol 3350 (Miralax) 17 Gm Powd.pack 17 GM PO DAILY PRN PRN For Constipation Prescribed by: YOLANDA ARRIOLA MD Followup Plan Discharge Diet: Low fat, Low Sodium, Heart Healthy Discharge Activity: Other (avoid heavy physical work or exertion) Patient Instructions Follow-up with her primary care provider, clinical nurse occupational medicine for further evaluation and management. Follow-up with PCP in: 1 week Anam Bernstein MD Jan 09, 2017 15:09
--- NOTE | 2017-01-09 15:33 | NUR ---
Social Work- Discharge Data: EMR reviewed. Pt is on day 2 of hospitalization for stroke/tia. Pt discussed in multidisciplinary rounds, pt will return to [facility] at time of discharge. Paperwork in patient's chart. SW spoke with pt at bedside today regarding discharge plan, pt is agreeable to discharge to [facility]. Evie confirms transportation is scheduled, but not until between 5 and 5:30. RN, UC, pt all updated and agreeable to plan. Assessment: Pt who requires SNF level of care. Plan: Transportation scheduled for between 1700 and 1730. Pt to d/c to [facility] for continued rehab. RN, UC, pt all updated and agreeable to plan. Anika Dorantes MSW
--- NOTE | 2017-01-09 16:32 | NUR ---
Report to [facility] Called and report given to [facility] Violeta admission nurse.
--- NOTE | 2017-01-09 17:53 | NUR ---
To [facility] ' Patient ate dinner and blood sugar 177. Insulin given per sliding scale. Transport here and patient left unit approx 1730. Report given to Violeta admission nurse.
== END 2017-01-09 17:30 ==
LOC: SED 13:03 → OSC 16:41
PROVIDERS: ADMIT Internal Medicine; ATTEND Internal Medicine
DX: G45.9 Transient cerebral ischemic attack, unspecified (principal); E11.649 Type 2 diabetes mellitus with hypoglycemia without coma; I50.22 Chronic systolic (congestive) heart failure; R27.0 Ataxia, unspecified; R41.4 Neurologic neglect syndrome; M21.372 Foot drop, left foot; R53.1 Weakness; N18.3 Chronic kidney disease, stage 3 (moderate); E78.5 Hyperlipidemia, unspecified; I25.10 Atherosclerotic heart disease of native coronary artery without angina pectoris; F32.9 Major depressive disorder, single episode, unspecified; F10.21 Alcohol dependence, in remission; N40.0 Benign prostatic hyperplasia without lower urinary tract symptoms; K21.9 Gastro-esophageal reflux disease without esophagitis; Z86.73 Personal history of transient ischemic attack (TIA), and cerebral infarction without residual deficits; I25.2 Old myocardial infarction; Z85.528 Personal history of other malignant neoplasm of kidney; Z90.5 Acquired absence of kidney; Z95.810 Presence of automatic (implantable) cardiac defibrillator; Z79.84 Long term (current) use of oral hypoglycemic drugs; Z87.891 Personal history of nicotine dependence
CPT/HCPCS: 36415; 70450; 80048; 80053; 80061; 81000; 82948; 83036; 84484; 85025; 92610; 93005; 93880; 97162; 97167; 97530; 99285; G0378; G8978; G8979; G8987; G8988; G8989; G8996; G8997; G8998; J1815; J7042

== ENCOUNTER 2017-01-18 12:15 | Emergency (ER) | payer MEDICARE ==
[~2017-01-18 12:15] MED LIST changes: +ACET325C PO; -Acetaminophen PO; +BISA10SU61 RC; -CARV3.122 PO; +CARV6.252 PO; -CHONDROITIN ORAL; -GLIP5TAB26 PO; +GLPZ5T PO; +GLUC1CAP13 PO; -GLUCOSAMINE ORAL; -INSLIS SUBQ; -INSU100I13 SUBQ; +INSU100I18 SUBQ; -LISI-571 PO; +LISI2.5T PO; +MAGN400O4 PO; +NA P133E23 RC; -SIMV40TA5 PO; +ZINC57OI TP
[2017-01-18 12:29] VITALS: BP 121/72; PULSE 60; RESP 18; O2SAT 94
--- NOTE | 2017-01-18 12:36 | ED.REPORT ---
HPI-Neurologic Deficit Date of Service Jan 18, 2017 ED Provider: Boo Murrieta MD Pt is a 76 y/o male w/ a hx of kidney CA s/p left nephrectomy, IDDM, CVA, HTN, HLD, FL, cardiomyopathy and CHF s/p AICD placement, presenting to the ED via EMS from [facility] due to confusion onset today. The patient was sent here from a SNF because of generalized confusion. He is feeling fine at this time but has been experiencing cough, fever, and increased leg edema recently. Pt denies CP, SOB, abdominal pain, chills, focal numbness or weakness. The patient was recently admitted to [facility] Jan 07- with primary diagnosis of TIA and chronic systolic CHF with ejection fraction 20-25%. Nursing Notes Stated Complaint: CONFUSED,R/O TIA Chief Complaint: Neuro Symptoms/ Deficits Nursing Notes Reviewed: Yes Allergies: Coded Allergies: No Known Allergies (Verified , 01/07/17) Scheduled Aspirin (Aspirin) 325 Mg Tablet 325 MG PO DAILY Atorvastatin Calcium (Atorvastatin Calcium) 20 Mg Tablet 20 MG PO HS Carvedilol (Carvedilol) 6.25 Mg Tablet 6.25 MG PO BID Fludrocortisone Acetate (Fludrocortisone Acetate) 0.1 Mg Tablet 0.1 MG PO DAILY Fluoxetine (Fluoxetine) 20 Mg Capsule 20 MG PO DAILY morning Furosemide (Furosemide) 40 Mg Tablet 40 MG PO DAILY Furosemide (Lasix) 20 Mg Tablet 60 MG PO DAILY Glipizide (Glipizide) 5 Mg Tablet 5 MG PO DAILY Gluc HCl/Csa/Aubrie Hy/Hyalur AC (Glucosamine Chondroitin Cap) 1 Each Capsule 2 EACH PO DAILY Isosorbide MN ER (Isosorbide MN ER) 60 Mg Tab.er.24h 60 MG PO 0730 Lisinopril (Lisinopril) 2.5 Mg Tablet 2.5 MG PO DAILY Pantoprazole DR (Pantoprazole DR) 40 Mg Tablet.dr 40 MG PO DAILYAC Tamsulosin (Flomax) 0.4 Mg Capsule 0.4 MG PO HS Zinc Oxide (Zinc Oxide) 57 Gm Oint...g. 1 APPLIC TP TID Scheduled PRN Acetaminophen (Acetaminophen) 325 Mg Capsule 650 MG PO q4 hours PRN PRN For Pain Bisacodyl (Dulcolax Rectal) 10 Mg Supp.rect 10 MG RC DAILY PRN PRN For Constipation Insulin Lispro (HumaLOG U100 Insulin Pen) 100 Unit/1 Ml Insuln.pen 0-12 UNIT SUBQ ACHS PRN PRN sliding scale Blood Sugar Lispro Correction <151 0 units 151-175 1 unit 176-200 2 units 201-225 3 units 226-250 4 units 251-275 5 units 276-300 6 units 301-325 7 units 326-350 8 units 351-375 9 units 376-400 10 units >400 12 units Check blood sugars before meals and at bedtime. Use correction factor only before meals. Magnesium Hydroxide (Milk of Magnesia) 400 Mg/5 Ml Oral.susp 30 ML PO DAILY PRN PRN For Constipation Na Phos,M-B/Na Phos,Di-Ba (Fleet Enema) 133 Ml Enema 133 ML RC DAILY PRN PRN For Constipation Polyethylene Glycol 3350 (Miralax) 17 Gm Powd.pack 17 GM PO DAILY PRN PRN For Constipation General Time Seen by Provider: 12:40 Chief Complaint Other (confusion) Hx Obtained From: Patient, EMS Arrived By: Ambulance Sudden in Onset?: No Onset Occurred: 5 - 8 hours ago Symptom Duration: Since onset Progression Since Onset: Constant Severity: Current: No pain currently Severity: Maximum: No pain Recent Healthcare: No recent hospitalization Past Medical History Past Medical History Notes: AICD placed for ejection fraction of 20-25% Past Medical History Kidney cancer s/p left nephrectomy IDDM CVA Hypertension Hyperlipidemia FL Depression Past Surgical History Left nephrectomy Cataract surgery angioplasty L arm plate Reports: Pacemaker insertion Smoking History Former Smoker Social History Alcohol Use: In recovery Drug Use: Denies drug use Ambulatory Status Independent Review of Systems Constitutional: Reports: Fever Respiratory: Reports: Non-productive cough, Denies: Shortness of breath Cardiovascular: Reports: Edema, Denies: Chest pain GI: Denies: Abdominal pain Neurologic: Reports: Confusion, Denies: Focal weakness, Numbness Complete sys rev & neg: except as marked. Physical Exam Initial Vital Signs Vital Signs (First) Date Time Temp Pulse Resp B/P Pulse Ox O2 Delivery O2 Flow Rate FiO2 01/18/17 12:29 36.6 60 18 121/72 94 Room Air Initial VS: Reviewed, Vital signs abnormal ENT: Mucous membranes moist, Conjunctiva normal, No scleral icterus Neck: Supple, Full range of motion Abdomen / GI: Soft, Non-tender, No guarding, No rebound, No distention Extremities: Vascular intact, Neuro intact, No swelling Skin: Warm, Dry, No cyanosis Psychiatric: Mood/affect normal, Behavior normal, Normal thought content General/Constitutional: Awake, Alert, No acute distress, Cooperative, Not toxic appearing Head / Eyes: Atraumatic, Normocephalic, PERRL Respiratory / Chest: Breath sounds NL, Breath sounds = bilat, No respiratory distress, No rales, No rhonchi, No wheezing Cardiovascular: Heart rate NL, Regular rhythm, Heart sounds NL, No gallop, No murmurs, No rubs, Cap refill not delayed, Peripheral circulation NL Lower Ext Edema: Positive: Bilateral 2+ Neurologic: Oriented X3, Speech NL, No motor deficits, No sensory deficits, CN II - XII intact, Cerebellar NL, Memory NL Interpretation & Diagnostics Lab Results Interpretation Result Diagram: 01/18/17 1323 01/18/17 1323 Test 01/18/17 13:23 01/18/17 13:41 White Blood Count 4.5th/mm3 (3.8-10.1) Red Blood Count 4.02mil/mm3 (4.40-5.80) Hemoglobin 9.9g/dL (13.8-17.2) Hematocrit 32.7% (41.0-50.0) Mean Corpuscular Volume 81.3fL (81-100) Mean Corpuscular Hemoglobin 24.6pg (27.0-35.0) Mean Corpuscular Hemoglobin Concent 30.3% (32.0-37.0) Red Cell Distribution Width 18.7% (12.3-15.4) Platelet Count 113bil/L (150-400) Neutrophils (%) (Auto) 71.1% (40-74) Lymphocytes (%) (Auto) 16.6% (14-46) Monocytes (%) (Auto) 10.6% (4-12) Eosinophils (%) (Auto) 1.3% (0-5) Basophils (%) (Auto) 0.2% (0-3) Prothrombin Time 13.2sec (8.1-12.5) Prothromb Time International Ratio 1.23ratio Sodium Level 140mEq/L (134-144) Potassium Level 3.8mEq/L (3.5-5.2) Chloride Level 103mEq/L (97-108) Carbon Dioxide Level 22mmol/L (18-29) Blood Urea Nitrogen 28mg/dL (8-27) Creatinine 1.39mg/dL (0.76-1.27) Estimat Glomerular Filtration Rate 53mL/min (>59) Glucose Level 149mg/dL (60-99) Lactic Acid Level 1.8mmol/L (0.4-2.0) Calcium Level 8.5mg/dL (8.5-10.1) Magnesium Level 1.9mg/dL (1.6-2.6) Total Bilirubin 0.9mg/dL (0.0-1.2) Aspartate Amino Transf (AST/SGOT) 19U/L (0-50) Alanine Aminotransferase (ALT/SGPT) 18U/L (0-44) Alkaline Phosphatase 124U/L (25-160) Troponin T < 0.010ug/L (0.0-0.011) Pro-B-Type Natriuretic Peptide 59355vw/mL (0-486) Total Protein 6.4g/dL (6.4-8.4) Albumin 3.1g/dL (3.4-5.0) Procalcitonin 0.08ng/mL (0.00-0.08) Urine Color Dark yellow (YELLOW) Urine Appearance Clear (CLEAR,HAZY) Urine pH 5.0 (5.0-8.0) Urine Specific [place] 1.025 (1.003-1.035) Urine Protein Tracemg/dL (NEG,TRACE) Urine Glucose (UA) Negativemg/dL (NEGATIVE) Urine Ketones Negativemg/dL (NEGATIVE) Urine Occult Blood Negative (NEGATIVE) Urine Nitrite Negative (NEGATIVE) Urine Bilirubin Negative (NEGATIVE) Urine Urobilinogen 4.0mg/dL (NORMAL) Urine Leukocyte Esterase Negative (NEGATIVE) Urine RBC 0-2/hpf (0-2) Urine WBC 0-5/hpf (0-5) Urine Epithelial Cells Occasional/hpf (NONE-MOD) Urine Crystals None seen (NONE SEEN) Urine Bacteria Few/hpf (NONE-FEW) Urine Hyaline Casts None/lpf (NONE) Urine Granular Casts None seen (NONE SEEN) Urine Waxy Casts None seen (NONE SEEN) Urine Red Blood Cell Casts None seen (NONE SEEN) Urine White Blood Cell Casts None seen (NONE SEEN) Urine Mucus None seen (None Seen) Urine Trichomonas None seen (NONE SEEN) Urine Yeast None (NONE SEEN) Urinalysis Comment None Urine Culture Reflexed Not indicated ECG Interpretation ECG Interpretation: Sinus rhythm rate 60 Possibly paced - hard to tell - history of AICD placement Time: 14:30 Interpreted by: ED physician Normal ECG Interpretation: No acute ischemic changes X-Ray Chest Interpretation Chest Xray Interpretation: IMPRESSION: 1. Findings suggestive of mild interstitial pulmonary edema, and therefore early congestive heart failure in the setting of cardiomegaly. 2. Masslike opacity within the right lower thorax is again noted, corresponding with loculated pleural effusion within the right major fissure on comparison CT scan. Dictated by: Baljit Rincon M.D. on 01/18/2017 at 13:10 Approved by: Baljit Rincon M.D. on 01/18/2017 at 13:13 View: Portable, 1 view Interpretation / Wet Read by: Interpret - Radiologist CT Head Interpretation IMPRESSION: 1. No acute intracranial abnormality. 2. Old right periventricular and left العلي radiata infarcts redemonstrated. 3. Moderate to severe cerebral volume loss and mild chronic white matter small vessel ischemic changes redemonstrated. Dictated by: Fito Grullon M.D. on 01/18/2017 at 13:21 Approved by: Fito Grullon M.D. on 01/18/2017 at 13:24 Study: Head CT no contrast Interpretation / Wet Read by: Interpret - Radiologist Re-Eval/Medical Decision Med Decision/Clinical Course Patient presents completely at normal baseline today, reportedly says caregivers were concerned for him having a stroke. His workup in the ER is normal and he has returned to normal baseline. He declines admission or observation in the hospital. He does look mildly fluid overloaded and is given IV Lasix with adequate diuresis. He is ambulatory normal baseline. He is stable for discharge back to his care facility. Return and follow-up precautions given. Source of Hx: Old records, EMS Re-Evaluation/Progress #1: Time of Eval: 14:59 Re-Evaluation/Progress Note: Pt rechecked. He is alert and oriented. He says that the caretakers sent him in because they thought he was having a stroke. He does not think he is having a stroke and would like to go back to the SNF instead of being admitted. Informed pt of plan for discharge. Pt understands and agrees with plan for discharge. F/U instructions and RTER warnings given. All questions addressed. Re-Evaluation/Progress #2: Time of Eval: 16:42 Re-Evaluation/Progress Note: Passed road test. Counseled Regarding: Diagnosis, Lab results, Need for follow-up, When/why to return to ED Discharge & Departure Impression: Primary Impression: CHF exacerbation Congestive heart failure type: unspecified congestive heart failure type Qualified Code: I50.9 - Heart failure, unspecified Disposition: Home Discharge Condition All VS Reviewed: Yes Condition: Stable Patient Instructions: Heart Failure (ED) Additional Instructions: I suspect you are experiencing a CHF exacerbation. I do not suspect you had a stroke. Labs, chest x-ray, and EKG were reassuring. Increase your Lasix to 60 mg daily for the next 4 days. Follow-up with your primary care provider in the next 3-4 days for a recheck. Return to the emergency department if you develop a fever or for any new or worsening symptoms. Referrals: Moody Wade MD (PCP) Scribe Attestation Portions of this note were transcribed by Faisal Ellis. I, Dr. Matthews personally performed the history, physical exam and medical decision-making; I reviewed and confirmed the accuracy of the information in the transcribed note. copies to: Moody Wade MD, Timothy S DO Jan 18, 2017 12:36 FAISAL ELLIS Jan 18, 2017 12:41
--- NOTE | 2017-01-18 13:14 | DRSVH ---
PROCEDURE: X-RAY CHEST ONE VIEW, PORTABLE ([id number]) INDICATIONS: 76-year-old male with generalized weakness. TECHNIQUE: One view of the chest was acquired. COMPARISON: [facility], CT, CT CHEST WO CONTRAST, 10/18/2015, 8:30 AM. Located Within [facility], CR, XR CHEST 1VW (PORTABLE), 01/01/2017, 6:42. [facility], CR, XR CHEST 1VW (POR TABLE), 12/31/2016, 14:27. [facility], CR, XR CHEST 1VW (PORTABLE), 12/26/2016, 18:46. FINDINGS: Surgical changes and devices: Left chest wall dual chamber pacer/ICD is again noted. Lungs and pleura: Masslike opacity is again noted within the right lower thorax. No pneumothorax. Pul monary reticular interstitial prominence is now present. Mediastinum: Mediastinal contours appear normal. Cardiomegaly is unchanged. There is aortic atheros clerosis. Bones and chest wall: No suspicious bony lesions. Overlying soft tissues appear unremarkable. IMPRESSION: 1. Findings suggestive of mild interstitial pulmonary edema, and therefore early congestive heart ignacio lure in the setting of cardiomegaly. 2. Masslike opacity within the right lower thorax is again noted, corresponding with loculated pleura l effusion within the right major fissure on comparison CT scan. Dictated by: Baljit Rincon M.D. on 01/18/2017 at 13:10 Approved by: Baljit Rincon M.D. on 01/18/2017 at 13:13
--- NOTE | 2017-01-18 13:25 | DRSVH ---
PROCEDURE: CT BRAIN WITHOUT CONTRAST ([id number]) INDICATIONS: confusion TECHNIQUE: Noncontrast 4.5 mm thick angled axial sections acquired from the foramen magnum to the vertex, with c oronal reformats. COMPARISON: [facility], CT, CT BRAIN WO CON, 01/07/2017, 14:31. FINDINGS: Image quality: Excellent. CSF spaces: Basal cisterns are patent. No extra-axial fluid collections. The ventricles are unchan ged in size and shape. There is moderate to severe cerebral volume loss, with resultant ventricular and sulcal prominence. Brain: No intracranial hemorrhage, mass, or mass effect. There is sequelae of a prior infarct withi n the right العلي radiata redemonstrated. There is also a small hypodensity in the left basal gangl ia compatible with a prior lacunar infarct. There are subcortical, periventricular and deep white ma tter hypodensities consistent with mild chronic small vessel ischemic changes. There is intracranial internal carotid artery atherosclerosis. Skull and face: Calvarium and visualized facial bones appear intact, without suspicious lesions. Sinuses: Visualized sinuses and mastoids are clear. IMPRESSION: 1. No acute intracranial abnormality. 2. Old right periventricular and left العلي radiata infarcts redemonstrated. 3. Moderate to severe cerebral volume loss and mild chronic white matter small vessel ischemic laura es redemonstrated. Dictated by: Fito Grullon M.D. on 01/18/2017 at 13:21 Approved by: Fito Grullon M.D. on 01/18/2017 at 13:24
[2017-01-18 13:37] LABS: BASOPHILS % (AUTO) 0.2 % (0-3); EOSINOPHILS % (AUTO) 1.3 % (0-5); MONOCYTES % (AUTO) 10.6 % (4-12); Mean Corpuscular Hemoglobin 24.6 pg (27.0-35.0); Mean Corpuscular Volume 81.3 fL (81-100); NEUTROPHILS % (AUTO) 71.1 % (40-74); Platelet Count 113 bil/L (150-400)
[2017-01-18 13:53] LABS: INR 1.23 ratio
[2017-01-18 14:01] LABS: Magnesium 1.9 mg/dL (1.6-2.6)
[2017-01-18 14:12] LABS: TROPONIN T < 0.010 ug/L (0.0-0.011)
[2017-01-18 14:44] LABS: APPEARANCE,URINE CLEAR (CLEAR,HAZY); COLOR,URINE DARK YELLOW (YELLOW); OCCULT BLOOD,URINE NEGATIVE (NEGATIVE)
[2017-01-18] MEDS ORDERED: Furosemide 10 mg/mL 4 mL Inj IVPUSH ONE (14:45)
[2017-01-18 15:18] VITALS: BP 138/75; PULSE 64; RESP 19; O2SAT 97
[2017-01-18] MEDS ORDERED: FURO-129 PO (16:52)
[2017-01-18 17:33] VITALS: BP 133/74; PULSE 64; RESP 18; O2SAT 95
== END 2017-01-18 17:35 | disposition home or self-care (01) ==
LOC: EDBD 12:15 → SED 12:15
DX: I11.0 Hypertensive heart disease with heart failure (principal); I50.9 Heart failure, unspecified; I25.2 Old myocardial infarction; E11.59 Type 2 diabetes mellitus with other circulatory complications; E78.5 Hyperlipidemia, unspecified; I42.9 Cardiomyopathy, unspecified; F32.9 Major depressive disorder, single episode, unspecified; C64.2 Malignant neoplasm of left kidney, except renal pelvis; Z79.4 Long term (current) use of insulin; Z79.82 Long term (current) use of aspirin; Z79.84 Long term (current) use of oral hypoglycemic drugs; Z95.810 Presence of automatic (implantable) cardiac defibrillator; Z86.73 Personal history of transient ischemic attack (TIA), and cerebral infarction without residual deficits; Z87.891 Personal history of nicotine dependence
CPT/HCPCS: 36415; 70450; 71010; 80053; 81000; 83605; 83735; 83880; 84145; 84484; 85025; 85610; 87040; 93005; 96374; 99285; J1940